=== PATIENT | female | born 1970 | race Caucasian/White ===

== ENCOUNTER → 2019-09-24 11:08 | Outpatient (CLI) | payer BC, SELFPAY ==
[2019-09-24 11:50] LABS: Adenovirus,PCR Not Detected (NotDetected); Bordetella Pertussis Not Detected (NotDetected); Chlamydophila Pneumoniae, PCR Not Detected (NotDetected); Coronavirus 229E Not Detected (NotDetected); Coronavirus NL63 Not Detected (NotDetected); Coronavirus OC43 Not Detected (NotDetected); Coronovirus HKU1,PCR Not Detected (NotDetected); Human Metapneumovirus Not Detected (NotDetected); Influenza A, PCR Not Detected (NotDetected); Influenza AH1, 2009 Not Detected (NotDetected); Influenza AH1, PCR Not Detected (NotDetected); Influenza AH3,PCR Not Detected (NotDetected); Influenza B, PCR Not Detected (NotDetected); Mycoplasma Pneumoniae, PCR Not Detected (NotDetected); Parainfluenza 1, PCR Not Detected (NotDetected); Parainfluenza 2, PCR Not Detected (NotDetected); Parainfluenza 3, PCR Not Detected (NotDetected); Parainfluenza 4, PCR Not Detected (NotDetected); Respiratory Syncytial Virus Not Detected (NotDetected); Rhinovirus/Enterovirus Not Detected (NotDetected)
[2019-09-24 11:52] LABS: Basophils # 0.1 K/mm3 (0-0.2); Basophils % 0.3 % (0.1-2.0); Eosinophils # 0.1 K/mm3 (0.0-0.4); Eosinophils % 0.4 % (0.1-12.0); Hematocrit 39.8 % (37.0-47.0); Hemoglobin 12.8 g/dL (12.2-16.2); Lymphocytes # 2.5 K/mm3 (0.7-4.5); Lymphocytes % 15.9 % (10-50); Mean Corpuscular HGB Conc 32.3 g/dL (31.8-35.4); Mean Corpuscular Hemoglobin 26.8 pg (27.0-31.2); Mean Corpuscular Volume 82.9 fl (81-99); Mean Platelet Volume 8.3 fl (7.4-10.4); Monocytes # 0.4 K/mm3 (0.1-1.0); Monocytes % 2.5 % (1.7-9.3); Neutrophils # 12.6 K/mm3 (1.8-7.8); Neutrophils % 80.9 % (37.0-80.0); Platelet Count 266 K/mm3 (142-424); Red Cell Distribution Width 19.5 % (11.5-17.5); White Blood Count 15.5 K/mm3 (4.8-10.8)
[2019-09-24 11:56] LABS: MANUAL DIFFERENTIAL MANUAL DIFFERENTIAL (MANUAL DIFF)
[2019-09-24 12:09] LABS: Eosinophils % 2 % (0-3); Lymphocytes % 19 % (10-50); Monocytes % 3 % (2-9); Neutrophils % 76 % (42-76); Platelet Estimate Normal; RBC Morphology Normal; Total Cells Counted 100
[2019-09-24 12:14] LABS: Strep Scrn Group A (Rapid) Negative (Negative)
== END ==
PROVIDERS: PCP Nurse Practitioner; Visit Provider Nurse Practitioner
DX: Z03.818 Encounter for observation for suspected exposure to other biological agents ruled out (principal)
CPT/HCPCS: 36415; 85007; 85025; 87430; 87486; 87581; 87633; 87798; U0003

== ENCOUNTER 2020-01-02 12:41 | Emergency (ER) | payer BC, SELFPAY ==
[2020-01-02 13:00] VITALS: BP 142/91; PULSE 86; RESP 20; TEMP 36.6; O2SAT 100; BMI 25.8
[2020-01-02 13:17] VITALS: BP 142/91; PULSE 86; RESP 20; TEMP 36.6; O2SAT 100
--- NOTE | 2020-01-02 13:17 | HMH.EDUTC ---
[facility] [place] Clinical Impression: Exposure to COVID-19 virus Allergic rhinitis Qualifiers: Allergic rhinitis trigger: other Allergic rhinitis seasonality: seasonal Qualified Code(s): J30.89 - Other allergic rhinitis Disposition: Home, Self-Care Condition on Discharge: Good Instructions: Preventing the Spread of Coronavirus Discharge Instructions Additional Instructions: isolate until test results are neg any new symptoms follow up with pcp if symptoms worsen return increase fluids tylenol or motrin as needed Referrals: Maria G Laurent APRN [Primary Care Provider] - Forms: Work/School Release Time of Disposition: 13:19 Medical Decision Making - Cesar Inquiry Pt receiving controlled substance: No Vital Signs: 01/02/20 13:00 Temperature 97.8 F Temperature Source Oral Pulse Rate [Right Brachial] 86 Respiratory Rate 20 Blood Pressure [Right Arm] 142/91 H Blood Pressure Mean [Right Arm] 108 Blood Pressure Source [Right Arm] Automatic Cuff Blood Pressure Position [Right Arm] Sitting 02 Sat by Pulse Oximetry 100 Oxygen Delivery Method Room Air Orders (Tests/Meds): ORDERS Category Date Time Status Covid-19 Nasal PCR Sendout Stat Lab 01/02/20 12:42 Ordered [facility] [place] - General Chief complaint: Urgent [facility] Stated complaint: covid test Time Seen by Provider: 01/02/20 13:17 Mode of Arrival: Ambulatory Source of Information: Patient Limitations: No Limitations Description of Symptoms (Recalled from Triage Doc. by RN): PATIENT REQUESTING COVID TEST D/T EXPOSURE; C/O SORE THROAT HEENT Symptoms (Recalled from RN notes): Yes Resp Symptoms (Recalled from RN notes): No Skin Symptoms (Recalled from RN notes): No MS Symptoms (Recalled from RN notes): No Functional Status (Recalled from RN notes): WNL - History of Present Illness Provider Complaint: 49 yr old female presents for covid test. pt states she hasa sore throat and headache. Pt states she thinks its allergies but want to make sure. - Related Data Home Medications Medication Instructions Recorded Confirmed abatacept (with maltose) 250 mg 1,000 mg IV Q4W 02/21/19 intravenous solution cyanocobalamin (vitamin B-12) SQ 02/21/19 1,000 mcg/mL injection solution folic acid 1 mg tablet PO 02/21/19 hydroxychloroquine 200 mg tablet 200 mg PO BID 02/21/19 levothyroxine 137 mcg tablet PO 02/21/19 methotrexate sodium 2.5 mg tablet PO 02/21/19 Previous Rx's Medication Instructions Recorded benzonatate 100 mg capsule 100 mg PO TID #14 cap 02/21/19 pseudoephedrine HCl 240 mg 240 mg PO DAILY PRN #14 tab 02/21/19 tablet,extended release 24 hr Allergies Allergy/AdvReac Type Severity Reaction Status Date / Time No Known Allergies Allergy Verified 02/21/19 10:33 - Worker's Comp Is this a Worker's Comp case?: No [facility] History - Hepatitis A Screen Drug use history?: No High risk sexual behaviors?: No History of sexually transmitted infection?: No Currently employed?: No Childcare worker?: No Do you have indoor plumbing?: Yes Do you have electricity?: Yes Attestation statement:: This patient has been screened for Hepatitis A risk factors. I have reviewed the patient's past medical history: Yes Other Medical History: Reports: Arthritis, Thyroid Disease, Other (LUPUS) Comment: Lupus Laterality Cases: Bilateral: Myringotomy (Ear Tubes) Other Surgeries: Yes: No Previous Surgery Amputation: No Fractures: No - Social History Smoking Status: Current every day smoker # Packs/Day (cigarettes): 1 #Yrs smoked (if former smoker): 20 Alcohol Intake: never Alcohol Intake Frequency:: holidays/special occasions only Substance Use Type: denies use Occupational Status: other Housing: house Household Members: none Family Hx:: No significant family history ROS Obtained: Yes Systems reviewed as appropriate & no additional complaints - Constitutional Constitutional: Reports system reviewed and no additional co
[2020-01-03 09:37] LABS: Covid-19 Nasal PCR Sendout UK Detected
--- NOTE | 2020-01-03 09:57 | PC.NURSE ---
patient notified of positive covid results
== END 2020-01-02 13:22 | disposition home or self-care (01) ==
PROVIDERS: Emergency Provider Nurse Practitioner Family; PCP Nurse Practitioner
DX: Z20.828 Contact with and (suspected) exposure to other viral communicable diseases (principal); J30.89 Other allergic rhinitis; F17.210 Nicotine dependence, cigarettes, uncomplicated; M32.9 Systemic lupus erythematosus, unspecified; Z79.899 Other long term (current) drug therapy
CPT/HCPCS: 99201; U0003

== ENCOUNTER → 2021-10-10 07:23 | Outpatient (CLI) | payer BC, SELFPAY ==
[2021-10-10 17:52] LABS: MANUAL DIFFERENTIAL MANUAL DIFFERENTIAL (MANUAL DIFF)
[2021-10-10 18:50] LABS: Alanine Aminotransferase 15 U/L (12-78); Albumin Level 3.7 g/dl (3.5-5.0); Albumin/Globulin Ratio 1.3 (1.1-1.8); Alkaline Phosphatase 127 U/L (38-126); Anion Gap 10.5 mEq/L (5-15); Aspartate Amino Transferase 23 U/L (14-36); Blood Urea Nitrogen 8 mg/dl (7-17); Calcium 9.2 mg/dl (8.4-10.2); Carbon Dioxide 24 mmol/L (22.0-30.0); Chloride 107 mmol/L (98-107); Estimated Glomerular Filt Rate 106 ml/min (>60); GFR (African American) 129 ML/MIN (>60); Globulin 2.9 g/dL (1.3-3.2); Glucose 104 mg/dl (74-100); Potassium 4.5 mmoL/L (3.5-5.1); Sodium 137 mmol/L (136-145); Total Protein,Serum 6.6 g/dl (6.3-8.2)
[2021-10-10 18:55] LABS: Basophils # 0.1 K/mm3 (0-0.2); Basophils % 1.2 % (0.1-2.0); Eosinophils # 0.2 K/mm3 (0.0-0.4); Hematocrit 41.6 % (37.0-47.0); Lymphocytes # 2.7 K/mm3 (0.7-4.5); Lymphocytes % 28.1 % (10-50); Mean Corpuscular HGB Conc 31.3 g/dL (31.8-35.4); Mean Corpuscular Hemoglobin 27.2 pg (27.0-31.2); Mean Corpuscular Volume 86.8 fl (81-99); Mean Platelet Volume 9.6 fl (7.4-10.4); Monocytes # 0.7 K/mm3 (0.1-1.0); Monocytes % 7.6 % (1.7-9.3); Neutrophils # 5.8 K/mm3 (1.8-7.8); Neutrophils % 61.2 % (37.0-80.0); Platelet Count 386 K/mm3 (142-424); Red Blood Count 4.79 M/mm3 (4.20-5.40); Red Cell Distribution Width 14.2 % (11.5-17.5); White Blood Count 9.5 K/mm3 (4.8-10.8)
[2021-10-10 19:12] LABS: Bilirubin,Total < 0.1 mg/dl (0.2-1.3)
[2021-10-10 19:19] LABS: Thyroid Stimulating Hormone 0.02 uIU/mL (0.465-4.68)
[2021-10-10 19:38] LABS: Vitamin B12 592 pg/mL (239-931)
[2021-10-10 20:15] LABS: Eosinophils % 4 % (0-3); Lymphocytes % 35 % (10-50); Monocytes % 6 % (2-9); Neutrophils % 55 % (42-76); Total Cells Counted 100
[2021-10-10 20:16] LABS: Hypochromasia 1+; Platelet Estimate Normal
== END ==
PROVIDERS: PCP Family Medicine; Visit Provider Family Medicine
DX: R53.83 Other fatigue (principal); L93.0 Discoid lupus erythematosus; D72.825 Bandemia
CPT/HCPCS: 80053; 82607; 84443; 85007; 85014; 85018; 85048; 85049; 87086; 87088; C9803; U0003; U0005

== ENCOUNTER → 2021-10-17 07:24 | Outpatient (CLI) | payer BC, SELFPAY ==
[2021-10-23 14:12] LABS: B. henselae IgG Negative titer (Neg:<1:320); B. henselae IgM Negative titer (Neg:<1:100); B. quintana IgG Negative titer (Neg:<1:320); B. quintana IgM Negative titer (Neg:<1:100)
== END ==
PROVIDERS: PCP Family Medicine; Visit Provider Family Medicine
DX: R53.83 Other fatigue (principal); E03.9 Hypothyroidism, unspecified
CPT/HCPCS: 86611

== ENCOUNTER → 2021-10-18 08:50 | Outpatient (CLI) | payer BC, SELFPAY ==
--- NOTE | 2021-10-18 08:50 | XR_ITS ---
FINAL REPORT TECHNIQUE: Bone densitometry calculations of the lumbar spine and left hip were obtained. CLINICAL HISTORY: premenopausal FINDINGS: Using L1-4, the bone mineral density of the spine is 0.991 g/cm2, corresponding to T-score of -0.5. Using the left hip, the bone mineral density of the femoral neck is 0.932 g/cm2, corresponding to a T-score of -0.1. Using the right hip, the bone mineral density of the femoral neck is 1.008 g/cm2, corresponding to a T-score of 0.5 NOTE: T-score: Standard deviation compared with peak bone mass of young adult mean. *Following the recommendations of the International Society of Bone densitometry, classification of hip BMD is based on the lower of two T-scores; total hip or femoral neck. FRAX data was not reported because all T-scores are at or above-1.0. IMPRESSION: Normal bone mineral density of the lumbar spine and hip. Reviewed, Interpreted and Dictated by Narendra Jose III, MD Transcribed by Nohemy Austin Authenticated and [facility]
== END ==
PROVIDERS: PCP Family Medicine; Visit Provider Family Medicine
DX: Z78.0 Asymptomatic menopausal state (principal); L93.0 Discoid lupus erythematosus
CPT/HCPCS: 77080

== ENCOUNTER → 2022-02-21 11:10 | Outpatient (CLI) | payer BC, SELFPAY | PROVIDERS: PCP Nurse Practitioner; Visit Provider Nurse Practitioner | DX: N30.01 Acute cystitis with hematuria (principal); B95.2 Enterococcus as the cause of diseases classified elsewhere | CPT/HCPCS: 87086; 87088; 87186 ==

== ENCOUNTER → 2022-03-05 11:10 | Outpatient (CLI) | payer BC, SELFPAY | PROVIDERS: PCP Nurse Practitioner; Visit Provider Nurse Practitioner | DX: N30.01 Acute cystitis with hematuria (principal) | CPT/HCPCS: 87086 ==

== ENCOUNTER → 2022-05-08 08:14 | Outpatient (CLI) | payer BC, SELFPAY ==
[2022-05-08 18:57] LABS: Creatinine,Urine Random 164 mg/dL (Not Estab.)
[2022-05-08 19:02] LABS: Microalbumin/Creatinine Ratio 4.7
[2022-05-08 19:20] LABS: Basophils # 0.1 K/mm3 (0-0.2); Basophils % 0.7 % (0.1-2.0); Eosinophils # 0.2 K/mm3 (0.0-0.4); Eosinophils % 1.8 % (0.1-12.0); Hematocrit 40.9 % (37.0-47.0); Lymphocytes # 1.9 K/mm3 (0.7-4.5); Mean Corpuscular HGB Conc 31.8 g/dL (31.8-35.4); Mean Corpuscular Hemoglobin 27.9 pg (27.0-31.2); Mean Corpuscular Volume 87.7 fl (81-99); Mean Platelet Volume 9.9 fl (7.4-10.4); Monocytes # 0.7 K/mm3 (0.1-1.0); Monocytes % 7.1 % (1.7-9.3); Neutrophils # 7.5 K/mm3 (1.8-7.8); Neutrophils % 72.4 % (37.0-80.0); Platelet Count 363 K/mm3 (142-424); Red Blood Count 4.66 M/mm3 (4.20-5.40); White Blood Count 10.4 K/mm3 (4.8-10.8)
[2022-05-08 19:26] LABS: Alanine Aminotransferase 17 U/L (12-78); Albumin Level 3.7 g/dl (3.5-5.0); Albumin/Globulin Ratio 1.4 (1.1-1.8); Alkaline Phosphatase 95 U/L (38-126); Anion Gap 11.8 mEq/L (5-15); Aspartate Amino Transferase 24 U/L (14-36); Bilirubin,Total 0.4 mg/dl (0.2-1.3); Blood Urea Nitrogen 15 mg/dl (7-17); Calcium 8.4 mg/dl (8.4-10.2); Carbon Dioxide 23 mmol/L (22.0-30.0); Chloride 103 mmol/L (98-107); Chol/HDL Ratio 2.6 (1-3.5); Cholesterol 161 mg/dl (140-200); Estimated Glomerular Filt Rate 106 ml/min (>60); GFR (African American) 128 ML/MIN (>60); Globulin 2.6 g/dL (1.3-3.2); Glucose 98 mg/dl (74-100); HDL Cholesterol 63 mg/dl (40-60); Potassium 4.8 mmoL/L (3.5-5.1); Sodium 133 mmol/L (136-145); Total Protein,Serum 6.3 g/dl (6.3-8.2); Triglycerides 242 mg/dl (30-150); VLDL Cholesterol 48 mg/dL (0-40)
[2022-05-08 19:37] LABS: Direct LDL Cholesterol 79.47 mg/dL (100-129)
[2022-05-08 19:43] LABS: 25-OH Vitamin D, Total 56.3 ng/mL (30-100)
[2022-05-08 20:16] LABS: Vitamin B12 521 pg/mL (239-931)
[2022-05-09 09:08] LABS: Hemoglobin A1C 5.5 % (4.0-6.0)
== END ==
PROVIDERS: PCP Nurse Practitioner; Visit Provider Nurse Practitioner
DX: I10 Essential (primary) hypertension (principal); F32.A Depression, unspecified; Z13.220 Encounter for screening for lipoid disorders; Z13.1 Encounter for screening for diabetes mellitus; Z79.899 Other long term (current) drug therapy
CPT/HCPCS: 80053; 80061; 82043; 82306; 82570; 82607; 83036; 85025

== ENCOUNTER → 2022-07-03 11:40 | Outpatient (CLI) | payer BC, SELFPAY | PROVIDERS: PCP Nurse Practitioner; Visit Provider Nurse Practitioner | DX: R30.0 Dysuria (principal); B96.29 Other Escherichia coli [E. coli] as the cause of diseases classified elsewhere | CPT/HCPCS: 87086; 87088; 87186 ==

== ENCOUNTER → 2022-11-06 23:32 | Outpatient (CLI) | payer BC, SELFPAY | PROVIDERS: PCP Nurse Practitioner; Visit Provider Nurse Practitioner | DX: R30.0 Dysuria (principal); B96.29 Other Escherichia coli [E. coli] as the cause of diseases classified elsewhere | CPT/HCPCS: 87086; 87088; 87186 ==

== ENCOUNTER 2023-09-26 15:23 | Outpatient (CLI) | payer BC, SELFPAY ==
[2023-09-26 18:45] LABS: Basophils # 0.1 K/mm3 (0-0.2); Basophils % 0.7 % (0.1-2.0); Eosinophils # 0.2 K/mm3 (0.0-0.4); Eosinophils % 1.6 % (0.1-12.0); Hematocrit 42.3 % (37.0-47.0); Hemoglobin 13.3 g/dL (12.2-16.2); Lymphocytes # 2.5 K/mm3 (0.7-4.5); Lymphocytes % 18.9 % (10-50); Mean Corpuscular HGB Conc 31.4 g/dL (31.8-35.4); Mean Corpuscular Hemoglobin 29.3 pg (27.0-31.2); Mean Corpuscular Volume 93.1 fl (81-99); Mean Platelet Volume 8.7 fl (7.4-10.4); Monocytes # 0.7 K/mm3 (0.1-1.0); Monocytes % 5.2 % (1.7-9.3); Neutrophils # 9.8 K/mm3 (1.8-7.8); Neutrophils % 73.4 % (37.0-80.0); Platelet Count 318 K/mm3 (142-424); Red Blood Count 4.55 M/mm3 (4.20-5.40); Red Cell Distribution Width 14.5 % (11.5-17.5); White Blood Count 13.3 K/mm3 (4.8-10.8)
[2023-09-26 19:32] LABS: Alanine Aminotransferase 22 U/L (12-78); Albumin Level 3.5 g/dl (3.5-5.0); Albumin/Globulin Ratio 1.2 (1.1-1.8); Alkaline Phosphatase 90 U/L (38-126); Aspartate Amino Transferase 21 U/L (14-36); Bilirubin,Total 0.3 mg/dl (0.2-1.3); Blood Urea Nitrogen 19 mg/dl (7-17); Calcium 8.9 mg/dl (8.4-10.2); Carbon Dioxide 23 mmol/L (22.0-30.0); Chloride 108 mmol/L (98-107); Estimated Glomerular Filt Rate 88 ml/min (>60); GFR (African American) 107 ML/MIN (>60); Globulin 2.9 g/dL (1.3-3.2); Glucose 111 mg/dl (74-100); Sodium 136 mmol/L (136-145); Total Protein,Serum 6.4 g/dl (6.3-8.2)
[2023-09-26 19:54] LABS: Thyroid Stimulating Hormone < 0.02 uIU/mL (0.465-4.68)
[2023-09-26 21:52] LABS: Hemoglobin A1C 5.6 % (4.0-6.0)
== END 2023-09-26 23:59 | disposition home or self-care (01) ==
LOC: LAB.DROPOF 09-28 17:41
PROVIDERS: PCP Nurse Practitioner; Visit Provider Nurse Practitioner
DX: I10 Essential (primary) hypertension (principal); Z72.0 Tobacco use
CPT/HCPCS: 80050; 80053; 83036; 84439; 84443; 85025

== ENCOUNTER 2023-09-27 15:05 | Emergency (ER) | payer BC, SELFPAY ==
--- NOTE | 2023-09-27 15:12 | ECG_ITS ---
APPROVED REPORT Exam: Resting ECG HR:127 bpm ECG Measurements Heart Rate 127 AXES OK 141 P 65 QRSd 97 QRS 67 QT 307 T 30 QTc 382 Conclusion SINUS TACHYCARDIA ABNORMAL RHYTHM ECG Isolated T wave inversion in lead III, no reciprocal changes, no STEMI Electronically signed by : ELSA RED, 09/27/2023 23:51:08
[2023-09-27 15:19] VITALS: BMI 29.0
--- NOTE | 2023-09-27 15:21 | XR_ITS ---
FINAL REPORT CLINICAL HISTORY: palpitations FINDINGS: SINGLE-VIEW CHEST The heart size is normal. The mediastinum is normal. The lungs are clear. There is no pneumothorax. IMPRESSION: No acute cardiopulmonary process. Reviewed, Interpreted and Dictated by Narendra Jose III, MD Transcribed by Nohemy Austin Authenticated and [facility]
[2023-09-27 15:23] VITALS: BP 189/104; PULSE 127; RESP 17; TEMP 36.4; O2SAT 98; BMI 29.0
[2023-09-27 15:29] VITALS: BP 146/94; RESP 13
[2023-09-27] MEDS: ASPIRIN 81MG CHEWABLE TABLET 243 MG PO (15:30)
[2023-09-27 15:34] LABS: Basophils # 0.1 K/mm3 (0-0.2); Basophils % 0.7 % (0.1-2.0); Eosinophils # 0.1 K/mm3 (0.0-0.4); Eosinophils % 1.2 % (0.1-12.0); Hematocrit 43.9 % (37.0-47.0); Hemoglobin 13.8 g/dL (12.2-16.2); Lymphocytes # 1.4 K/mm3 (0.7-4.5); Lymphocytes % 12.3 % (10-50); Mean Corpuscular HGB Conc 31.5 g/dL (31.8-35.4); Mean Corpuscular Hemoglobin 29.7 pg (27.0-31.2); Mean Corpuscular Volume 94.3 fl (81-99); Mean Platelet Volume 8.3 fl (7.4-10.4); Monocytes # 0.5 K/mm3 (0.1-1.0); Monocytes % 4.1 % (1.7-9.3); Neutrophils # 9.3 K/mm3 (1.8-7.8); Neutrophils % 81.7 % (37.0-80.0); Platelet Count 292 K/mm3 (142-424); Red Blood Count 4.66 M/mm3 (4.20-5.40); Red Cell Distribution Width 14.4 % (11.5-17.5); White Blood Count 11.4 K/mm3 (4.8-10.8)
--- NOTE | 2023-09-27 15:34 | ED_ITS ---
Discharge Plan Disposition Patient Disposition: Home, Self-Care Condition: Good Prescriptions Prescriptions: No Action omeprazole 20 mg capsule,delayed release(DR/EC) 20 mg PO norgestimate-ethinyl estradiol [Estarylla] 0.25-35 mg-mcg tablet 1 tab PO DAILY pyridoxine (vitamin B6) 50 mg tablet 50 mg PO Q OTHER DAY Patient Comments: TAKE 1 TABLET BY MOUTH EVERY OTHER DAY levothyroxine 150 mcg tablet 150 mcg PO Patient Comments: TAKE 1 TABLET BY MOUTH EVERY DAY Benlysta 120 mg recon soln 400 mg IV Q4W Rx Instructions: administer over 60 mins hydrocortisone 0.5 % cream topical omega 2-kbd-scl-fish oil [Fish Oil] 1,200 (144-216) mg capsule 1 cap PO DAILY folic acid 1 mg tablet 1 mg PO DAILY Patient Comments: TAKE 1 TABLET BY MOUTH EVERY DAY cyanocobalamin (vitamin B-12) 1,000 mcg/mL solution SQ Patient Comments: INJECT 1 ML INTO THE MUSCLE EVERY 14 DAYS. cyclobenzaprine 10 mg tablet 10 mg PO TID PRN (Reason: muscle spasm) Qty: 30 0RF Debrox 6.5 % drops 5 drp otic (ear) BID 4 Days Qty: 15 0RF duloxetine [Cymbalta] 20 mg capsule,delayed release(DR/EC) 20 mg PO BID Qty: 180 3RF losartan-hydrochlorothiazide 100-12.5 mg tablet 1 tab PO DAILY Qty: 30 2RF Referrals Follow up/Referrals: Maria G Laurent APRN [Primary Care Provider] - See instructions Activity Restrictions/Add. Instructions Additional Instructions/Restrictions: You were evaluated in the ER and are appropriate for discharge at this time. Continue taking home medications as prescribed. Follow-up with endocrinology regarding your thyroid. Also make an appointment with your primary care physician to be seen again on Saturday or Saturday to recheck your potassium and discuss potassium supplement. Increase your water intake. Return to the ER with new, worsening, or otherwise concerning symptoms. Clinical Impressions Clinical Impression: Tachycardia Print Language Print Language: Austrian Discharge ED Provider: Stacie Glez Adult HPI General Chief complaint: Arrhythmia/Palpitations Stated complaint: sent by Maria G Laurent for evelated Pulse Time Seen by Provider: 09/27/23 15:28 Mode of Arrival: Ambulatory Source of Information: Patient Limitations: No Limitations Description of Symptoms (Recalled from ER Triage Doc. by RN): pt c/o a MAR, racing heart, diaphoresis, hot flashes, MAR and weakness since yesterday. pt saw her PCP yesterday but felt worse today so came into be checked out. pt reports in 2014 she had a similar episode but her HR was 234 and she ended up having a heart ablation at [facility]. pt has a hx of thryoid disease, lupus and HTN History of Present Illness HPI narrative: 53-year-old female with a history of hypertension, lupus presents to the ER for concerns of tachycardia. Patient reports her heart rate has been elevated consistently in the 120s to 130s for the last 3 to 4 days. She noticed over the last few weeks she was not feeling well and her blood pressure had been elevated. She states she would have multiple bad days and then a random good day. She has been evaluated by her primary care doctor as recently as yesterday. Yesterday they changed her medication to losartan plus hydrochlorothiazide and increase the dose of it. Patient states she continues making normal urine, she is not having chest pain or difficulty breathing, she states she simply does not feel good. Patient reports she has been eating and drinking normally. No abdominal pain, nausea, vomiting, diarrhea. Patient denies any history of blood clot, no calf pain or redness. She states her feet have been swollen at the end of the day recently which is new for her. patient has not missed any doses of her regular medications. She denies any recent illness. patient does report mild headache for which she took ibuprofen earlier today. Patient does have a history of thyroid disease. Related Data Home Medications ?Medication ?Instructions ?Recorded ?Confirmed cyanocobalamin (vitamin B-12) SQ 02/21/19 09/26/23 1,000 mcg/mL injection solution folic acid 1 mg tablet 1 mg PO DAILY 02/21/19 09/26/23 belimumab 120 mg intravenous 400 mg IV Q4W 02/21/22 09/26/23 solution (Benlysta) levothyroxine 150 mcg tablet 150 mcg PO 02/21/22 09/26/23 norgestimate 0.25 mg-ethinyl 1 tab PO DAILY 02/21/22 09/26/23 estradiol 35 mcg tablet (Estarylla) omeprazole 20 mg capsule,delayed 20 mg PO 02/21/22 09/26/23 release pyridoxine (vitamin B6) 50 mg 50 mg PO Q OTHER DAY 02/21/22 09/26/23 tablet hydrocortisone 0.5 % topical cream g topical 05/01/22 09/26/23 omega 5-aoy-ysa-fish oil 1,200 mg 1 cap PO DAILY 05/01/22 09/26/23 (144 mg-216 mg) capsule (Fish Oil) Previous Rx's ?Medication ?Instructions ?Recorded cyclobenzaprine 10 mg tablet 10 mg PO TID PRN muscle spasm #30 01/29/23 tabs carbamide peroxide 6.5 % ear drops 5 drp otic (ear) BID 4 days #15 mL 02/15/23 (Debrox) duloxetine 20 mg capsule,delayed 20 mg PO BID #180 caps 05/21/23 release (Cymbalta) losartan 100 1 tab PO DAILY #30 tabs 09/26/23 mg-hydrochlorothiazide 12.5 mg tablet Allergies Allergy/AdvReac Type Severity Reaction Status Date / Time No Known Allergies Allergy Verified 09/27/23 15:31 [facility] Disclaimer: The information contained in this section may have been updated after the patient was seen, as this information can be updated by other users. Medical History Left-sided low back pain with left-sided sciatica Acute cystitis with hematuria Bilateral impacted cerumen Depression Personal history of smoking Primary hypertension Acquired hypothyroidism decrease levothyroxine dose. Recheck one month. Acquired hypothyroidism Lupus Acute arthritis Surgical History History of tonsillectomy Social History Smoking Status: Current every day smoker alcohol intake: never substance use type: denies use current occupational status: other Travel in the last 8 weeks: None household members: none housing: house ROS Obtained: Yes All systems reviewed & no additional complaints except as documented Positive ROS per HPI Physical Exam General General appearance: alert and in no apparent distress Head Head exam: atraumatic and normocephalic Eye Eye exam: Present PERRL and EOMI ENT ENT exam: Present mucous membranes moist Neck Neck exam: Present normal inspection and full ROM Chest Chest inspection: Present symmetric chest wall rise Respiratory Respiratory exam: Absent respiratory distress or stridor Cardiovascular Cardiovascular exam: Present normal rhythm and tachycardia Abdominal Exam Abdominal exam: Present soft; Absent distention or tenderness Extremities Exam Extremities exam: Present full ROM and other (2+ pulses in all extremities); Absent edema or calf tenderness Neurological Exam Neurological exam: Present alert, oriented X3 and CN II-XII intact; Absent motor sensory deficit Psychiatric Psychiatric exam: Present normal affect and normal mood Skin Skin exam: Present warm and dry Medical Decision Making Medical Records Medical records reviewed: Yes I reviewed the patient's medical records. Cesar Inquiry Pt receiving controlled substance: No Vital Signs: 09/27/23 15:23 09/27/23 15:29 Temperature 97.5 F L Temperature Source Oral Pulse Rate [Left] 127 H Respiratory Rate 17 13 Blood Pressure 146/94 H Blood Pressure [Right Arm] 189/104 H Blood Pressure Mean [Right Arm] 132 Blood Pressure Source [Right Arm] Automatic Cuff Blood Pressure Position [Right Arm] Sitting 02 Sat by Pulse Oximetry 98 Oxygen Delivery Method Room Air Lab Data Lab Results 09/27/23 15:17: WBC 11.4 H, RBC 4.66, Hgb 13.8, Hct 43.9, MCV 94.3, MCH 29.7, M CHC 31.5 L, RDW 14.4, Plt Count 292, MPV 8.3, Neut % (Auto) 81.7 H, Lymph % (Auto) 12.3, [place] % (Auto) 4.1, Eos % (Auto) 1.2, Baso % (Auto) 0.7, Neut # (Auto) 9.3 H, Lymph # (Auto) 1.4, [place] # (Auto) 0.5, Eos # (Auto) 0.1, Baso # (Auto) 0.1, D-Dimer < 0.25, Sodium 137, Potassium 3.3 L, Chloride 105, Carbon Dioxide 23, Anion Gap 12.3, BUN 22 H, Creatinine 0.90 D, Estimated Creat Clear 98, Estimated GFR 66, Est GFR ( Amer) 80 D, Glucose 121 H, Calcium 9.3, Total Bilirubin 0.4, AST 30 D, ALT 26, Alkaline Phosphatase 98, Troponin I < 0.01, NT-Pro-B Natriuret Pep 24.4, Total Protein 7.2, Albumin 3.9 D, Globulin 3.3 H, Albumin/Globulin Ratio 1.2, TSH 0.02 L, Free T4 1.14, Thyroxine (T4) 18.1 H 09/27/23 15:17 09/27/23 15:17 Orders (Tests/Meds): ED MEDICATIONS Discontinued Medications Generic Name Dose Route Start Last Admin Trade Name Luiza PRN Reason Stop Dose Admin Acetaminophen 1,000 mg 09/27/23 15:46 09/27/23 16:15 Acetaminophen 500mg Tab PO 09/27/23 15:47 1,000 mg ONCE ONE Administration Aspirin 243 mg 09/27/23 15:21 09/27/23 15:30 Aspirin 81mg Chewable Tablet PO 09/27/23 15:22 243 mg ONCE ONE Administration Lactated Ringer's 1,000 mls @ 999 mls/hr 09/27/23 15:53 09/27/23 16:15 Lactated Ringer's 1000 Ml Bag IV 09/27/23 16:53 999 mls/hr .Q1H1M ONE Administration Potassium Chloride 40 meq 09/27/23 16:08 09/27/23 16:15 Potassium Chloride 20meq Tab PO 09/27/23 16:09 40 meq ONCE ONE Administration ORDERS Category Date Time Status XR chest portable Stat Exams 09/27/23 15:21 Completed BNP [NT Pro Brain Natriuretic Pep.] Stat Lab 09/27/23 15:17 Completed Complete Blood Count Auto Diff Stat Lab 09/27/23 15:17 Completed Comprehensive Metabolic Panel Stat Lab 09/27/23 15:17 Completed D-Dimer Stat Lab 09/27/23 15:17 Completed Free T4 (Free Thyroxine) Stat Lab 09/27/23 15:17 Completed T4 (Thyroxine) Stat Lab 09/27/23 15:17 Completed Thyroid Stimulating Hormone Stat Lab 09/27/23 15:17 Completed Troponin I Q3H Lab 09/27/23 18:30 Ordered Troponin I Q3H Lab 09/27/23 21:30 Ordered Troponin I Stat Lab 09/27/23 15:17 Completed Medical Decision Narrative: In summary, this 53-year-old female presents to the emergency department today with tachycardia, headache, generalized malaise. On initial evaluation patient is hemodynamically stable though she is tachycardic, afebrile, no peripheral edema, no calf pain, swelling, tenderness, or redness, pulmonary exam benign, abdominal exam benign, neuroexam intact. Differential diagnosis includes but is not limited to tachycardia, electrolyte abnormality, dehydration, patient has a comorbidity of having lupus which increases risk of hypercoagulability, increasing risk of PE which was considered, D-dimer ordered, considered thyroid abnormality, pericardial effusion, pericarditis. Based on these concerns, I ordered cardiac workup, chest x-ray, BNP. ECG personally interpreted demonstrates sinus tachycardia, rate 127, normal axis, normal AR and QTc, no STEMI. No specific findings for pericarditis. Patient received IV fluids, acetaminophen, aspirin for treatment. Labs personally reviewed demonstrate mild leukocytosis improved from labs yesterday, no anemia, mild hypokalemia, patient is receiving oral potassium, mild prerenal azotemia, patient is receiving IV fluids. D-dimer negative. Reassuring against PE. Thyroid studies with low TSH as expected given patient is on thyroid supplement, thyroxine is elevated but free T4 is normal. This is nonactionable at this time. 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 XR personally interpreted demonstrates no acute intrathoracic abnormality, see radiology read for final interpretation. POCUS negative for pericardial effusion. See procedure note for details. On reassessment after IV fluids patient has had improvement of her heart rate now down in the low 110s. She is appropriate for discharge with outpatient follow-up. Patient was given instructions on symptomatic management, follow up instructions to see endocrinology and recheck her potassium with her primary care doctor, and return precautions for the emergency department. Patient indicated understanding and was discharged in stable condition. Procedures Miscellaneous Procedure Procedure Performed: Limited Cardiac Ultrasound Indication: Tachycardia Identified cardiac views: Apical four-chamber Findings: Cardiac activity present without gross wall motion abnormality, no pericardial effusion, no right heart strain Impression: -[From above] Images were saved to permanent archive The study was technically adequate CPT: 31045 This study was performed by me, and I personally interpreted all images/videos. Based on my clinical judgement, these images were adequate and did not necessitate further imaging. Critical Care Critical Care Time Critical Care Time: No
[2023-09-27 15:39] LABS: Alanine Aminotransferase 26 U/L (12-78); Albumin Level 3.9 g/dl (3.5-5.0); Albumin/Globulin Ratio 1.2 (1.1-1.8); Alkaline Phosphatase 98 U/L (38-126); Anion Gap 12.3 mEq/L (5-15); Aspartate Amino Transferase 30 U/L (14-36); Bilirubin,Total 0.4 mg/dl (0.2-1.3); Blood Urea Nitrogen 22 mg/dl (7-17); Calcium 9.3 mg/dl (8.4-10.2); Carbon Dioxide 23 mmol/L (22.0-30.0); Chloride 105 mmol/L (98-107); Creatinine Clearance Estimated 98 mL/min (50-200); Estimated Glomerular Filt Rate 66 ml/min (>60); GFR (African American) 80 ML/MIN (>60); Globulin 3.3 g/dL (1.3-3.2); Glucose 121 mg/dl (74-100); Potassium 3.3 mmoL/L (3.5-5.1); Sodium 137 mmol/L (136-145); Total Protein,Serum 7.2 g/dl (6.3-8.2)
[2023-09-27 15:43] LABS: D-Dimer < 0.25 ug/mL (0.0-0.5)
[2023-09-27 15:55] LABS: NT Pro Brain Natriuretic Pep. 24.4 pg/mL (0-125)
[2023-09-27 15:57] LABS: T4 (Thyroxine) 18.1 ug/dl (5.53-11.0)
[2023-09-27 16:10] LABS: Troponin I < 0.01 ng/ml (0.00-0.034)
[2023-09-27 16:11] LABS: Thyroid Stimulating Hormone 0.02 uIU/mL (0.465-4.68)
[2023-09-27] MEDS: POTASSIUM CHLORIDE 20MEQ TAB 40 MEQ PO (16:15)
[2023-09-27] MEDS: LACTATED RINGERS 1000ML 1,000 ML 999 ML IV (16:15)
[2023-09-27] MEDS: ACETAMINOPHEN 500MG TAB 1000 MG PO (16:15)
[2023-09-27 16:51] LABS: Free T4 (Free Thyroxine) 1.14 ng/dl (0.78-2.19)
[2023-09-27 17:18] VITALS: BP 143/101; PULSE 113; RESP 16; TEMP 36.4; O2SAT 97
== END 2023-09-27 17:20 | disposition home or self-care (01) ==
PROVIDERS: Emergency Provider Emergency Medicine; PCP Nurse Practitioner
DX: R00.0 Tachycardia, unspecified (principal); E87.6 Hypokalemia; I10 Essential (primary) hypertension; M32.9 Systemic lupus erythematosus, unspecified; E03.9 Hypothyroidism, unspecified; F17.210 Nicotine dependence, cigarettes, uncomplicated
CPT/HCPCS: 71045; 80050; 80053; 83880; 84436; 84439; 84443; 84484; 85025; 85378; 93005; 96360; 99285; J7120

== ENCOUNTER 2023-10-03 11:13 | Outpatient (CLI) | payer BC, SELFPAY ==
[2023-10-03 20:03] LABS: Basophils # 0.1 K/mm3 (0-0.2); Basophils % 0.5 % (0.1-2.0); Eosinophils # 0.3 K/mm3 (0.0-0.4); Eosinophils % 2.9 % (0.1-12.0); Hematocrit 41.3 % (37.0-47.0); Lymphocytes # 2.3 K/mm3 (0.7-4.5); Lymphocytes % 21.9 % (10-50); Mean Corpuscular HGB Conc 31.4 g/dL (31.8-35.4); Mean Corpuscular Hemoglobin 29.8 pg (27.0-31.2); Mean Corpuscular Volume 94.8 fl (81-99); Mean Platelet Volume 9.5 fl (7.4-10.4); Monocytes # 0.8 K/mm3 (0.1-1.0); Monocytes % 7.3 % (1.7-9.3); Neutrophils # 6.9 K/mm3 (1.8-7.8); Neutrophils % 67.4 % (37.0-80.0); Platelet Count 393 K/mm3 (142-424); Red Blood Count 4.36 M/mm3 (4.20-5.40); Red Cell Distribution Width 14.2 % (11.5-17.5); White Blood Count 10.3 K/mm3 (4.8-10.8)
[2023-10-03 20:17] LABS: Alanine Aminotransferase 21 U/L (12-78); Albumin Level 3.5 g/dl (3.5-5.0); Albumin/Globulin Ratio 1.3 (1.1-1.8); Alkaline Phosphatase 90 U/L (38-126); Anion Gap 9.8 mEq/L (5-15); Aspartate Amino Transferase 22 U/L (14-36); Bilirubin,Total 0.3 mg/dl (0.2-1.3); Blood Urea Nitrogen 14 mg/dl (7-17); Carbon Dioxide 22 mmol/L (22.0-30.0); Chloride 109 mmol/L (98-107); Estimated Glomerular Filt Rate 105 ml/min (>60); GFR (African American) 128 ML/MIN (>60); Globulin 2.8 g/dL (1.3-3.2); Glucose 93 mg/dl (74-100); Potassium 4.8 mmoL/L (3.5-5.1); Sodium 136 mmol/L (136-145); Total Protein,Serum 6.3 g/dl (6.3-8.2)
== END 2023-10-03 23:59 | disposition home or self-care (01) ==
LOC: LAB.DROPOF 10-04 11:13
PROVIDERS: PCP Nurse Practitioner; Visit Provider Nurse Practitioner
DX: I10 Essential (primary) hypertension (principal); E87.6 Hypokalemia; D72.829 Elevated white blood cell count, unspecified; R00.0 Tachycardia, unspecified; Z72.0 Tobacco use
CPT/HCPCS: 80053; 85025

== ENCOUNTER 2023-10-21 11:56 | Outpatient (CLI) | payer BC, SELFPAY ==
[2023-10-21 19:53] LABS: Basophils # 0.1 K/mm3 (0-0.2); Basophils % 0.5 % (0.1-2.0); Eosinophils # 0.1 K/mm3 (0.0-0.4); Eosinophils % 1.1 % (0.1-12.0); Hemoglobin 12.6 g/dL (12.2-16.2); Lymphocytes # 2.7 K/mm3 (0.7-4.5); Lymphocytes % 22.7 % (10-50); Mean Corpuscular HGB Conc 31.6 g/dL (31.8-35.4); Mean Corpuscular Hemoglobin 29.6 pg (27.0-31.2); Mean Corpuscular Volume 93.6 fl (81-99); Mean Platelet Volume 9.1 fl (7.4-10.4); Monocytes # 0.6 K/mm3 (0.1-1.0); Monocytes % 5.5 % (1.7-9.3); Neutrophils # 8.2 K/mm3 (1.8-7.8); Neutrophils % 70.3 % (37.0-80.0); Platelet Count 416 K/mm3 (142-424); Red Blood Count 4.28 M/mm3 (4.20-5.40); Red Cell Distribution Width 14.7 % (11.5-17.5); White Blood Count 11.7 K/mm3 (4.8-10.8)
[2023-10-21 20:30] LABS: Alanine Aminotransferase 24 U/L (12-78); Albumin Level 3.6 g/dl (3.5-5.0); Albumin/Globulin Ratio 1.2 (1.1-1.8); Alkaline Phosphatase 89 U/L (38-126); Anion Gap 10.7 mEq/L (5-15); Aspartate Amino Transferase 30 U/L (14-36); Bilirubin,Total 0.3 mg/dl (0.2-1.3); Blood Urea Nitrogen 14 mg/dl (7-17); Calcium 8.9 mg/dl (8.4-10.2); Carbon Dioxide 23 mmol/L (22.0-30.0); Chloride 105 mmol/L (98-107); Estimated Glomerular Filt Rate 105 ml/min (>60); GFR (African American) 128 ML/MIN (>60); Glucose 83 mg/dl (74-100); Potassium 4.7 mmoL/L (3.5-5.1); Sodium 134 mmol/L (136-145); Total Protein,Serum 6.6 g/dl (6.3-8.2)
== END 2023-10-21 23:59 | disposition home or self-care (01) ==
LOC: LAB.DROPOF 10-22 11:56
PROVIDERS: PCP Nurse Practitioner; Visit Provider Nurse Practitioner
DX: E87.6 Hypokalemia (principal); I10 Essential (primary) hypertension; F17.200 Nicotine dependence, unspecified, uncomplicated
CPT/HCPCS: 80053; 85025

== ENCOUNTER 2024-04-27 15:11 | Outpatient (CLI) | payer BC, SELFPAY | END 2024-04-27 23:59 | disposition home or self-care (01) | LOC: LAB.DROPOF 04-29 07:53 | PROVIDERS: PCP Nurse Practitioner; Visit Provider Nurse Practitioner | DX: N30.01 Acute cystitis with hematuria (principal) | CPT/HCPCS: 87086 ==

== ENCOUNTER 2024-06-15 12:40 | Outpatient (CLI) | payer BC, SELFPAY ==
--- NOTE | 2024-06-15 12:49 | XR_ITS ---
FINAL REPORT CLINICAL HISTORY: LLQ pain, left flank pain FINDINGS: A single supine view of the abdomen was obtained. There is no prior for comparison. There is a large amount of retained stool. The kidneys are obscured by stool. Pelvic calcifications could be phleboliths, but distal ureteral stones not excluded. Osseous structures are within normal limits. IMPRESSION: Large stool burden. Pelvic calcifications as described. Reviewed, Interpreted and Dictated by Montserrat Ivan MD Transcribed by Leah Bonner Authenticated and [facility][1]
== END 2024-06-15 23:59 | disposition home or self-care (01) ==
LOC: RAD 12:41
PROVIDERS: PCP Nurse Practitioner; Visit Provider Nurse Practitioner
DX: R10.32 Left lower quadrant pain (principal); R10.9 Unspecified abdominal pain
CPT/HCPCS: 74018; 87086

== ENCOUNTER 2024-07-01 07:19 | Outpatient (CLI) | payer BC, SELFPAY ==
[2024-07-01 07:40] LABS: Blood Urea Nitrogen 11 mg/dl (7-17); Estimated Glomerular Filt Rate 105 ml/min (>60); GFR (African American) 127 ML/MIN (>60)
== END 2024-07-01 23:59 | disposition home or self-care (01) ==
LOC: LAB 07:20
PROVIDERS: PCP Nurse Practitioner; Visit Provider Nurse Practitioner
DX: R10.32 Left lower quadrant pain (principal)
CPT/HCPCS: 36415; 82565; 84520

== ENCOUNTER 2024-07-02 08:03 | Outpatient (CLI) | payer BC, SELFPAY ==
--- NOTE | 2024-07-02 08:30 | CT_ITS ---
FINAL REPORT TECHNIQUE: Oral and IV contrast enhanced exam This study was performed with techniques to keep radiation doses as low as reasonably achievable, (ALARA). Individualized dose reduction techniques using automated exposure control or adjustment of mA and/or kV according to the patient's size were employed. CLINICAL HISTORY: LLQ pain, left flank pain, worse in back oral and iv contrast COMPARISON: None FINDINGS: CT ABDOMEN PELVIS WITH CONTRAST: Abdomen: Lung bases are clear. The gallbladder is unremarkable. Liver has an unremarkable CT appearance. The spleen, pancreas and adrenal glands are unremarkable. Kidneys show no mass or obstruction. No bowel obstruction or fluid collection is seen. Pelvis: The appendix is normal in appearance. There are small uterine fibroids, the largest of which measures 16 mm in size. Pelvic bowel loops are unremarkable. No fluid collection or adenopathy is seen. Mild fecal impaction is noted throughout the colon. IMPRESSION: Mild fecal impaction, without evidence of acute intra-abdominal abnormality. Reviewed, Interpreted and Dictated by Merna Orozco MD Transcribed by Aurea Peoples Authenticated and [facility]
[2024-07-02] MEDS: SODIUM CHLORIDE 0.9% 10ML SYR (RAD ONLY) 10 ML IV (08:57)
[2024-07-02] MEDS: IOPAMIDOL-370 (76%);100ML BOTTLE 75 ML IV (08:58)
[2024-07-02] MEDS: BARIUM SULFATE(READI-CAT2);450ML BOTTLE 450 ML PO (08:58)
== END 2024-07-02 23:59 | disposition home or self-care (01) ==
LOC: RAD 08:04
PROVIDERS: PCP Nurse Practitioner; Visit Provider Nurse Practitioner
DX: K56.41 Fecal impaction (principal)
CPT/HCPCS: 74177; Q9967

== ENCOUNTER 2024-07-22 09:13 | Outpatient (CLI) | payer BC, SELFPAY ==
--- OUTSIDE RECORDS SUMMARY | 2024-07-02 15:30 | XMS_ITS | Encounter Summary ---
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 Procedures [place] INJ ANIFROLUMAB-FNIA 1MG Selena Gray MD [address] [place] [address] Phone: tel: fax: [facility] [address] [place] [address] Referral ID Status Reason Start Date Expiration Date V isits Requested Visits Authorized [id number] Authorized 10/02/2023 99 99 Encounter Details Date Type Department Care Team (Latest Contact Info) Description 07/02/2024 3:30 PM EDT Office Visit [facility] [place] [address] [place] [phone] Encounter for long-term (current) use of high-risk [...] Care Team (Late st Contact Info) Description 08/04/2024 3:45 PM EDT [facility] [address] [place] [address] 10/22/2024 3:30 PM EDT [facility] [address] [place] [address] Selena Gray MD [address] [place] [address] 11/25/2024 9:00 AM EDT Office Visit [facility] [address] [address] Lyle Salgado MD [address] [place] [address] documented as of this encounter Goals Goal Patient Goal Type Associated Problems Recent Progress Patient-Stated? Author Blood Pressure < 140/90 Blood Pressure 120/72(2024 3:57 PM EDT) No Marybel Singh, RMKelly Maintain a healthy diet, exercise regularly and maintain an ideal body weight General No Christina Newton, BRYCE Stay Tobacco Free Lifestyle No Christina Newton APRN documented as of this encounter Visit [...] /hr documented in this encounter Care Teams Magento Developer Relationship Specialty Start Date End Date Maria G Laurent APRN [address] [facility] [address] [place] [address] PCP - General Nurse Practitioner 08/20/19 Jonah Eng MD [address] [place] [address] Physician Psychiatry & Neurology-Clinical Neurophysiology 09/16/13 Jaren Duran MD [address] [place] [address] Internal Medicine-Cardiovascular Disease 04/22/14 Selena Gray MD [address] [place] [address] Internal Medicine-Rheumatology 04/30/22 documented as of this encounter
--- OUTSIDE RECORDS SUMMARY | 2024-07-16 16:00 | XMS_ITS | Encounter Summary ---
Author Organization [facility] Address [address] [place] [address] Care Team Providers Care Sheet Folder Name Role Phone Jonah Eng MD Unavailable Jaren Duran MD Unavailable Unavailable MariaG Laurent APRN Primary Care Provider [phone] Selena Gray MD Unavailable Reason for Visit * Reason Comments Lupus Encounter Details Date Type Department Care Team (Latest Contact Info) Description 07/16/2024 4:00 PM EDT Office Visit [facility] [address] [place] [address] Selena Gray MD [address] [place] [address] Systemic lupus erythematosus, unspecified SLE [...] Description 08/04/2024 3:45 PM EDT Office Visit [facility] [address] [place] [address] 10/22/2024 3:30 PM EDT Office Visit [facility] [address] [place] [address] Selena Gray MD [address] [place] [address] 11/25/2024 9:00 AM EDT Office Visit [facility] [address] [id number] Lyle Salgado MD [facility] [place] [address] Pending Results Name Type Priority Associated Diagnoses Date /Time VITAMIN D 25 HYDROXY-QUEST Lab Routine Encounter for long-term (current) use of high-risk medication Vitamin D deficiency 07/22/2024 8:05 AM EDT C REACTIVE PROTEIN-QUEST Lab Routine Encounter for long-term (current) use of high-risk medication 07/22/2024 8:05 AM EDT DNA (DS) ANTIBODY-QUEST Lab Routine Encounter for long-term (current) use of high-risk medication 07/22/2024 8:05 AM EDT COMPLEMENT COMPONENT [id number] Lab Routine 07/22/2024 8:05 AM EDT COMPLEMENT COMPONENT [id number] Lab Routine 07/22/2024 8:05 AM EDT QUANTIFERON(R)-TB GOLD PLUS, 1-QUEST Lab Routine 07/22/2024 8:05 AM EDT URINE CULTURE-QUEST Lab Routine 07/22 8:05 AM EDT Scheduled Orders Name Type Priority Associated Diagnoses [...] Pressure 120/72(2024 3:57 PM EDT) No Marybel Singh RMA Maintain a healthy diet, exercise regularly and maintain an ideal body weight General No Christina Newton APRN Stay Tobacco Free Lifestyle No Christina Newton APRN documented as of this encounter Procedures Procedure Name Priority Date/Time Associated Diagnosis Comments REFLEXIVE URINE CULTURE Routine 07/22/2024 8:05 AM EDT URINALYSIS, COMPLETE WITH REFLEX TO CULTURE-QUEST Routine 07/22/2024 8:05 AM EDT Encounter for long-term (current) use of high-risk medication SEDIMENTATION RATE AUTOMATED-QUEST Routine 07/22/2024 8:05 AM EDT Encounter for long-term (current) use of high-risk medication COMPREHENSIVE METABOLIC PANEL-QUEST Routine 07/22/2024 8:05 AM EDT Encounter for long-term (current) use of high-risk medication CBC WITH AUTO DIFF-QUEST Routine 07/22/2024 8:05 AM EDT Encounter for long-term (current) use of high-risk medication documented in this encounter Results * REFLEXIVE URINE CULTURE (07/22/2024 8:05 AM EDT) REFLEXIVE URINE CULTURE [facility] Comment:CULTURE INDICATED - RESULTS TO FOLLOW 07/22/2024 8:05 AM EDT 07/22/2024 8:05 AM EDT us Selena Gray MD QUEST-URINE ORDERABLES Final Res ult QUEST [facility] [address] [place] [address] * (ABNORMAL) URINALYSIS, COMPLETE WITH REFLEX TO [...] 07/22/2024 8:05 AM EDT Selena Gray MD QUEST-MICROBIOLOGY ORDERABLES Fi nal Result Performing Organization Address City/[facility]/ZIP Co de Phone Number [facility] [address] [place] [address] * SEDIMENTATION RATE AUTOMATED-QUEST (07/22/2024 8:05 AM EDT) Sed Rate 17 < OR = 30 mm[facility]h [facility] 07/22/2024 8:05 AM EDT 07/22/2024 8:05 AM EDT Selena Gray MD QUEST-HEMATOLOGY ORDERABLES Yuly l Result Performing Organization Address [facility] Co de Phone Number [facility] [address] [place] [address] * COMPREHENSIVE METABOLIC PANEL-QUEST (07/22/2024 8:05 AM EDT) Glucose 87 65 - 99 mg/dL [facility] Comment: Fasting reference interval BUN 10 7 - 25 mg/dL [facility] Creatinine 0.57 0.50 - 1.03 mg/dL [facility] EGFR 109 > OR = 60 mL/min/1.7 3m2 [facility] BUN/Creatinine Ratio SEE NOTE: 6 - 22 (calc) [facility] Comment: Not Reported: [...] MD QUEST-CHEMISTRY ORDERABLES Final Result QUEST [facility] [address] [place] [address] * CBC WITH AUTO DIFF-QUEST (07/22/2024 8:05 AM EDT) WBC 9.8 3.8 - 10.8 Thousand/u L [...] EDT Selena Gray MD QUEST-HEMATOLOGY ORDERABLES Yuly alarcon Result Performing Organization Address City/State/[facility] Co de Phone Number QUEST [facility] [address] [place] [address] documented in this encounter Visit Diagnoses Diagnosis [...] 07/16/2024 documented in this encounter Care Teams Sheet Folder Relationship Specialty Start Date End Date Maria G Laurent APRN [address] [facility] [address] [place] [address] PCP - General Nurse Practitioner 08/20/19 Jonah Eng MD [address] [place] [address] Physician Psychiatry & Neurology-Clinical Neurophysiology 09/16/13 Jaren Duran MD [address] [facility] [address] [place] [address] Internal Medicine-Cardiovascular Disease 04/22/14 [place] [address] [place] [address] Internal Medicine-Rheumatology 04/30/22 documented as of this encounter
[2024-07-22 18:38] LABS: Basophils # 0.1 K/mm3 (0-0.2); Basophils % 0.8 % (0.1-2.0); Eosinophils # 0.2 Kmm3 (0.0-0.4); Hematocrit 37.5 % (37.0-47.0); Immature Granulocytes # 0.03 10^3uL; Immature Granulocytes % 0.3 %; Lymphocytes % 20.7 % (10-50); Mean Corpuscular Hemoglobin 28.7 pg (27.0-31.2); Mean Corpuscular Volume 89.7 fl (81-99); Mean Platelet Volume 10.4 fl (7.4-10.4); Monocytes # 0.6 K/mm3 (0.1-1.0); Monocytes % 6.1 % (1.7-9.3); Neutrophils # 6.8 K/mm3 (1.8-7.8); Neutrophils % 70.1 % (37.0-80.0); Nucleated Red Blood Cells # 0 10^3/uL; Nucleated Red Blood Cells % 0 %; Platelet Count 348 K/mm3 (142-424); Red Blood Count 4.18 M/mm3 (4.20-5.40); Red Cell Distribution Width-SD 45.5 fL; White Blood Count 9.7 K/mm3 (4.8-10.8)
[2024-07-22 18:46] LABS: Alanine Aminotransferase 13 U/L (12-78); Albumin Level 3.6 g/dl (3.5-5.0); Albumin/Globulin Ratio 1.3 (1.1-1.8); Alkaline Phosphatase 71 U/L (38-126); Anion Gap 8.6 mEq/L (5-15); Aspartate Amino Transferase 20 U/L (14-36); Bilirubin,Total 0.3 mg/dl (0.2-1.3); Blood Urea Nitrogen 10 mg/dl (7-17); Calcium 9.7 mg/dl (8.4-10.2); Carbon Dioxide 24 mmol/L (22.0-30.0); Chloride 104 mmol/L (98-107); Chol/HDL Ratio 2.3 (1-3.5); Cholesterol 184 mg/dl (140-200); Estimated Glomerular Filt Rate 105 ml/min (>60); GFR (African American) 127 ML/MIN (>60); Globulin 2.8 g/dL (1.3-3.2); Glucose 99 mg/dl (74-100); HDL Cholesterol 80 mg/dl (40-60); Potassium 4.6 mmoL/L (3.5-5.1); Sodium 132 mmol/L (136-145); Total Protein,Serum 6.4 g/dl (6.3-8.2); Triglycerides 172 mg/dl (30-150); VLDL Cholesterol 34 mg/dL (0-40)
[2024-07-22 18:58] LABS: Direct LDL Cholesterol 78.32 mg/dL (100-129)
[2024-07-22 19:03] LABS: 25-OH Vitamin D, Total 68.2 ng/mL (30-100)
[2024-07-22 19:04] LABS: Free T4 (Free Thyroxine) 0.85 ng/dl (0.78-2.19)
[2024-07-22 19:11] LABS: Creatinine,Urine Random 51 mg/dL (Not Estab.); Microalbumin < 6.000 mg/L (0-16.7)
[2024-07-22 19:18] LABS: Thyroid Stimulating Hormone 2.41 uIU/mL (0.465-4.68)
[2024-07-22 19:37] LABS: Vitamin B12 414 pg/mL (239-931)
[2024-07-22 20:04] LABS: Hemoglobin A1C 5.6 % (4.0-6.0)
[2024-07-22 20:51] LABS: Hepatitis C Ab Qual. W/ RFX NEGATIVE (Negative)
[2024-07-23 04:35] LABS: HIV Combo NEGATIVE (Negative)
--- OUTSIDE RECORDS SUMMARY | 2024-07-23 09:20 | XMS_ITS | Encounter Summary ---
Author Organization [place] [address] Care Team Providers Care Multiple Cut Off Saw Operator Name Role Phone Jonah Eng MD Unavailable Jaren Duran MD Unavailable Unavailable Shawn Ramirez MD Primary Care Provider [phone] Maria G Laurent APRN Primary Care Provider [phone] Selena Gray MD Unavailable Encounter Details Date Type Department Care Team (Late st Contact Info) Description 12/20/2016 E-Visit [facility] [place] [facility] [address] [place] [address] Shawn Ramirez MD [address] [place] [address] E-Visit Submission: Urinary Problems Social History Tobacco Use Types Packs/Day Years Used Date Smoking Tobacco: Every Day Cigarettes 0.5 20 Started: 01/11/1989; Last attempted to quit: 01/11/2009 Smokeless Tobacco: Never Comments:Occasional smoker. 5-6 cigerattes in a day. Alcohol Use Standard Drinks/Week Comments Yes 0 [...] on file documented as of this encounter Plan of Treatment Upcoming Encounters Date Type Department Care Team (Late st Contact Info) Description 08/04/2024 3:45 PM EDT Office Visit [facility] [address] [place] [address] 10/22/2024 3:30 PM EDT Office [facility] [address] [place] [address] Selena Gray MD [address] [place] [address] 11/25/2024 9:00 AM EDT Office Visit [facility] [address] [address] Lyle Salgado MD [address] [place], [place] [id number] documented as of this encounter Goals Goal Patient Goal Type Associated Problems Recent Progress Patient-Stated? Author Blood Pressure < 140/90 Blood Pressure 120/72(2024 3:57 PM EDT) No Marybel Singh, RMA Maintain a healthy diet, exercise regularly and maintain an ideal body weight General No Christina Newton APRN Stay Tobacco Free Lifestyle No Christina Newton APRN documented as of this encounter Visit Diagnoses Not on filedocumented in this encounter Care Teams Multiple Cut Off Saw Operator Relationship Specialty Start Date End Date Shawn Ramirez MD [address] [place] [address] PCP - General Family Medicine 05/11/14 07/07/18 Maria G Laurent APRN [address] [facility] [address] [place] [address] PCP - General Nurse Practitioner 08/20/19 Jonah Eng MD [address] [place] [address] Physician Psychiatry & Neurology-Clinical Neurophysiology 09/16/13 Jaren Duran MD [address] [place] [address] Internal Medicine-Cardiovascular Disease 04/22/14 Selena Gray MD [address] [place] [address] Internal Medicine-Rheumatology 04/30/22 documented as of this encounter
--- OUTSIDE RECORDS SUMMARY | 2024-07-23 09:20 | XMS_ITS | Encounter Summary ---
Author Organization [place] [address] Care Team Providers Care Repair Armature Winder Helper Name Role Phone Jonah Eng MD Unavailable Jaren Duran MD Unavailable Unavailable Maria G Laurent APRN Primary Care Provider [phone] Selena Gray MD Unavailable Reason for Visit * Reason Onset Date Comments Medication Refill 07/15/2024 Encounter Details Date Type Department Care Team (Late st Contact Info) Description 07/15/2024 Refill [facility] Physicians [facility] [place] [address] [address] Tayla Lam MD [address] [address] Medication Refill Social History Tobacco Use Types Packs/Day Years [...] on file documented as of this encounter Ordered Prescriptions Prescription Sig Dispense Quantity Refills Last Filled Start Date End Date cyanocobalamin 1,000 mcg/mL Inj SolutionIndications :B12 deficiency Inject 1 mL into the muscle every 14 days. 6 mL 1 07/15/2024 documented in this encounter Plan of Treatment Upcoming Encounters Date Type Department Care Team (Late st Contact Info) Description 08/04/2024 3:45 PM EDT Office Visit [facility] [address] [place] [address] 10/22/2024 3:30 PM EDT Office [facility] [address] [place] [address] Selena Gray MD [address] [place] [address] 11/25/2024 9:00 AM EDT Office Visit [facility] [address] [address] Lyle Salgado MD [address] [place] [address] documented as of this encounter Goals Goal Patient Goal Type Associated Problems Recent Progress Patient-Stated? Author Blood Pressure < 140/90 Blood Pressure 120/72(2024 3:57 PM EDT) Marybel Rowan, RMA Maintain a healthy diet, exercise regularly and maintain an ideal body weight General No Christina Newton APRN Stay Tobacco Free Lifestyle Christina Stevenson APRN documented as of this encounter Visit Diagnoses Diagnosis B12 deficiency Other B-complex deficiencies documented in this encounter Discontinued Medications Medication Sig Discontinue Reason Start Date End Da te cyanocobalamin 1,000 mcg/mL Inj SolutionIndications: B12 deficiency INJECT 1 ML INTRAMUSCULARLY EVERY 14 DAYS Reorder 04/24/2024 07/15/2024 documented as of this encounter Care Teams Repair Armature Winder Helper Relationship Specialty Start Date End Date Maria G Laurent APRN [address] [facility] [address] [place] [address] PCP - General Nurse Practitioner 08/20/19 Jonah Eng MD [address] [place] [address] Physician Psychiatry & Neurology-Clinical Neurophysiology 09/16/13 Jaren Duran MD [address] [place] [address] Internal Medicine-Cardiovascular Disease 04/22/14 Selena Gray MD [address] [place] [address] Internal Medicine-Rheumatology 04/30/22 documented as of this encounter
--- OUTSIDE RECORDS SUMMARY | 2024-07-23 09:20 | XMS_ITS | Encounter Summary ---
Author Organization [facility] Address [address] [place] [address] Care Team Providers Care Loss Prevention Specialist Name Role Phone Jonah Eng MD Unavailable Jaren Duran MD Unavailable Unavailable Maria G Laurent APRN Primary Care Provider [phone] Selena Gray MD Unavailable Reason for Visit * Reason Comments Medication Refill Encounter Details Date Type Department Care Team (Late st Contact Info) Description 06/07/2024 Refill [facility] [address] [place] [address] Selena Gray MD [address] [place] [address] Medication Refill Social History Tobacco Use Types [...] Refills Last Filled Start Date End Date omeprazole (PRILOSEC) 20 mg Oral Capsule, Delayed Release(E.C.) TAKE 1 CAPSULE BY MOUTH EVERY DAY 90 Capsule 06/08/2024 documented in this encounter Miscellaneous Notes * Telephone Encounter - Ginger Lewis MA - 06/08/2024 2:00 PM EDT LCV: 04/14/24 NCV: 07/16/24 Last Sent: 03/10/24 90 capsules with 0 refills Medication sent to [facility] in [place], [place] documented in this encounter Plan of Treatment Upcoming Encounters Date Type Department Care Team (Late st Contact Info) Description 08/04/2024 3:45 PM EDT Office Visit [facility] [address] [place] [address] 10/22/2024 3:30 PM EDT Office Visit [facility] [address] [place] [address] Selena Gray MD [address] [place] [address] 11/25/2024 9:00 AM EDT Office Visit [facility] [address] [id number] Lyle Salgado MD [address] [place] [address] documented as of this encounter Goals Goal [...] Diagnoses Not on filedocumented in this encounter Discontinued Medications Medication Sig Discontinue Reason Start Date End Da te omeprazole (PRILOSEC) 20 mg Oral Capsule, Delayed Release(E.C.) TAKE 1 CAPSULE BY MOUTH EVERY DAY 03/10/2024 06/08/2024 documented as of this encounter Care Teams Loss Prevention Specialist Relationship Specialty Start Date End Date Maria G Laurent APRN [address] [facility] [address] [place] [address] PCP - General Nurse Practitioner 08/20/19 Jonah Eng MD [address] [place] [address] Physician Psychiatry & Neurology-Clinical Neurophysiology 09/16/13 Jaren Duran MD [address] [address] Internal Medicine-Cardiovascular Disease 04/22/14 Selena Gray MD [address] [place] [address] Internal Medicine-Rheumatology 04/30/22 documented as of this encounter
--- OUTSIDE RECORDS SUMMARY | 2024-07-23 09:20 | XMS_ITS | Clinical Summary ---
Author Organization [facility] Address [address] [place] [address] Phone Care Team Providers Care Drupal Web Developer Name Role Phone Jonah Eng MD Unavailable Jaren Duran MD Unavailable Unavailable Maria G Laurent APRN Primary Care Provider [phone] Selena Gray MD Unavailable Allergies Active Allergy Reactions Criticality Noted Date Comments Almotriptan Malate Nausea And Vomiting, Other (See Comments) High 12/27/2009 Unknown Certolizumab Pegol Hives 01/24/2023 Medications FLUoxetine 60 mg Oral Tablet Take 0.5 Tabs by mouth daily. Active ibuprofen (ADVIL;MOTRIN) 200 mg Oral TabletIndications :Contusion of right chest wall, initial encounter Take 2 Tabs by mouth 3 times daily as needed for Pain. 30 Tab 2 017 Active ferrous sulfate 325 mg (65 mg iron) Oral Tablet Take 1 Tab by mouth 3 times daily. 90 Tab 5 020 Active Cholecalciferol, Vitamin D3, (VITAMIN D3) 125 mcg (5,000 unit) Oral TabletIndications :Vitamin D deficiency Take 5,000 Units by mouth every other day. 021 Active Syringe with Needle, Disp, (BD LUER-KERVIN SYRINGE) 3 mL 25 gauge x 1 Misc SyringeIndication s:B12 deficiency USE EVERY 2 WEEKS WITH B12 INJECTION. 6 Each 3 023 Active pyridoxine, vitamin B6, (B-6) 50 mg Oral TabletIndications :B12 deficiency,Second joshua hypothyroidism,Vi tamin B6 deficiency,Pituit joshua hypofunction,Low iron,Other iron deficiency anemia TAKE 1 TABLET BY MOUTH EVERY OTHER DAY 45 Tablet 7 023 Active hydrocortisone 0.5 % Top Cream APPLY DAILY TO RASH NEEDED 28.4 g 023 Active DULoxetine (CYMBALTA) 20 mg Oral Capsule, Delayed Release(E.C.) Take 20 mg by mouth 2 times daily. 023 Active ESTARYLLA 0.25-35 mg-mcg Oral Tablet Take 1 Tablet by mouth daily. 023 Active albuterol (PROVENTIL HFA;VENTOLIN HFA) 90 mcg/actuation Inhl HFA Aerosol InhalerIndication s:Acute viral bronchitis Inhale 2 Puffs into the lungs every 4 hours as needed. 1 Each 024 Active leucovorin (WELLCOVORIN) 5 mg Oral Tablet Take 8-12 hours after you methotrexate 5 Tablet 3 024 Active losartan-hydrochl orothiazide (HYZAAR) 100-12.5 mg Oral Tablet Take 1 Tablet by mouth daily. 024 Active nebivoloL (BYSTOLIC) 10 mg Oral Tablet Take 10 mg by mouth daily. 024 Active KLOR-CON M20 20 mEq Oral Tab Sust.Rel. Particle/Crystal Take 20 mEq by mouth 2 times daily. 024 Active anifrolumab-fnia (SAPHNELO IV) Inject into the vein every 28 days. Active methotrexate sodium, PF, 25 mg/mL Inj SolutionIndicatio ns:Systemic lupus erythematosus, unspecified SLE type, unspecified organ involvement status (HCC),Encounter for long-term (current) use of high-risk medication Subcutaneous (Inject under the skin) 1 mL once a week. 8 mL 025 Active Insulin Syringe-Needle U-100 (BD INSULIN SYRINGE) 1 mL 27 gauge x 1/2 Misc SyringeIndication s:Systemic lupus erythematosus, unspecified SLE type, unspecified organ involvement status (HCC),Encounter for long-term (current) use of high-risk medication To to used with Methotrexate prescription. To take 0.6ml (15mg) SC weekly 25 Each 2 025 Active folic acid (FOLVITE) 1 mg Oral Tablet TAKE 1 TABLET BY MOUTH EVERY DAY 90 Tablet 025 Active predniSONE (DELTASONE) 10 mg Oral TabletIndications :Primary osteoarthritis of right knee,Primary osteoarthritis of left knee TAKE 3 TABLETS DAILY X 5 DAYS THEN 2 TABLETS DAILY X 5 DAYS THEN 1 TABLET DAILY X 5 DAYS THEN STOP. 30 Tablet 025 Active Additional Information Patient not taking.Reported on 07/16/2024 omeprazole (PRILOSEC) 20 mg Oral Capsule, Delayed Release(E.C.) TAKE 1 CAPSULE BY MOUTH EVERY DAY 90 Capsule 025 Active LEVOthyroxine (SYNTHROID) 150 mcg Oral TabletIndications :Secondary hypothyroidism TAKE 1 TABLET BY MOUTH EVERY DAY 30 Tablet 025 Active cyanocobalamin 1,000 mcg/mL Inj SolutionIndicatio ns:B12 deficiency Inject 1 mL into the muscle every 14 days. 6 mL 1 025 Active LEVOthyroxine (SYNTHROID) 150 mcg Oral TabletIndications :Secondary hypothyroidism TAKE 1 TABLET BY MOUTH EVERY DAY 90 Tablet 1 024 2024 Discontinued Hospital, Clinic, or Other Facility Administered Medication Ordered Dose Route Frequency Start Date End Date Status methylPREDNISolone acetate (DEPO-Medrol) injection 80 mgIndications:Systemic lupus erythematosus, unspecified SLE type, unspecified organ involvement status (HCC),Rheumatoid arthritis of multiple sites without rheumatoid factor (HCC) 80 mg IM ONCE 07/16/2024 07/16/2024 E nded Active Problems Problem Noted Date Diagnosed Date Nonrheumatic aortic valve insufficiency 11/26/19 24 Overview (11/26/2023): Was mild in 2018 more moderate in 2023. Patient denies any symptoms. Assessment & Plan (11/26/2023 8:45 AM EDT): Discussed with patient today. Gave her literature on aortic regurgitation. Do not expected to cause any problems anytime soon but will need to have follow-up would like to see her at least on a yearly basis. Tobacco abuse 11/26/2023 Overview (11/26/2023): Has 13.4-pack-year smoking history is quit for months at a time in the past. Assessment & Plan (11/26/2023 8:47 AM EDT): Strongly encourage patient to quit. Discussed methods that she could quit. She has quit in the past. Especially with her lupus it puts her at much higher risk of cardiovascular events. States that she is dedicated and is going to quit again. Will continue to address at future visits. Allergic rhinitis 04/06/2023 Encounter for long-term (cur rent) use of high-risk medication 08/13/2022 Systemic lupus erythematosus 01/08/2022 Overview (07/16/2024): -Last Visit; 04/14/24 # Rheumatoid arthritis with [...] had a low + FRANCOISE of 1:80 at the time/ mouth ulcers; -synthroid improved her hair [...] malignant neoplasm of breast, squamous cell carcinoma) Hypersensitivity reaction, anaphylaxis, and infusion-related reactions. Advised to hold [...] flares; likely secondary reactive/ auto inflammatory -sees Dr/ Talita; paraproteinemia on labs 06/04/23; OTC iron -Seen by GI (leverage); normal upper and lower GI series # Cervical spondylosis (M47.812): # Microscopic hematuria (R31.29): -sees Dr. Page, UA stable Other microscopic hematuria 01/08/2022 Hair loss 11/04/2015 Vitamin D deficiency 11/04/2015 Vitamin B6 deficiency 11/04/2015 Secondary hypothyroidism 11/04/2015 Rheumatoid arthritis 06/22/2013 Migraines 12/27/2009 Depression 12/27/2009 SVT (supraventricular tachycardia) Overview (11/26/2023): [address] Mak. Assessment & Plan (11/26/2023 8:45 AM EDT): Had an episode where she when she went to the ER with tachycardia no major issues were noted but she was started on Bystolic at that time. Since then she has been feeling better. Would recommend continuation of Bystolic at this time. Resolved Problems Problem Noted Date Diagnosed Date Resolved Date Drug-induced systemic lupus erythematosus 05/08/2022 05/24/2022 Encounters Date Type Department Care Team Description 07/16/2024 4:00 PM EDT Office Visit [facility] [address] [place] [address] Selena Gray MD Systemic lupus erythematosus, unspecified SLE type, unspecified organ involvement status (HCC) (Primary Dx); Rheumatoid arthritis of multiple sites without rheumatoid factor (HCC); Encounter for long-term (current) use of high-risk medication; Vitamin D deficiency; Immunosuppressed status; Swelling of both wrists 07/15/2024 Refill [facility] [address] [address] Tayla Lam MD Medication Refill 07/15/2024 Refill [facility] [address] [address] Tayla Lam MD Medication Refill 07/02/2024 3:30 PM EDT Office Visit [facility] [address] [place] [address] Encounter for long-term (current) use of high-risk medication (Primary Dx); Systemic lupus erythematosus, unspecified SLE type, unspecified organ involvement status (HCC) 06/07/2024 Refill [facility] [address] [place] [address] Selena Gray MD Medication Refill 05/13/2024 [facility]ill [facility] [address] [place] [address] Selena Gray MD Medication Refill 05/07/2024 3:00 PM EDT Office Visit [facility] [address] [place] [address] Encounter for long-term (current) use of high-risk medication (Primary Dx); Systemic lupus erythematosus, unspecified SLE type, unspecified organ involvement status (HCC) 05/07/2024 [facility]ill [facility] [address] [place] [address] Selena Gray MD Medication Refill from Last 3 Months Immunizations Immunization Administration Dates Next Due Influenza Nasal, Unspecified Formulation 013 Influenza Vaccine Quadrivalent PF 11/04/2015 11/03/2016 Td, Unspecified Formulation 01/24/2010 Zoster Recombinant 09/26/2023 Surgical History Surgery Date Site/Laterality Comments LAPAROSCOPY DENTAL SURGERY wisdom teeth ABLATION OF DYSRHYTHMIC FOCUS 06/14/2014 S/P EPS, 3D Mapping, SVT RF ablation (DR. Mak) Medical History Medical History Date Comments Depression ALY (dyspnea on exertion) Hypertension Headache(784.0) occ migranes, se es Dr/ Velasquez Neuro Arthritis rhumatoid SVT (supraventricular tachycardia) 06/14/2014 S/P EPS, 3D Mapping, RF ablation (DR. Mak) WPW Irregular heart beat Autoimmune disease Migraine Family History Relation Name Status Comments Brother Alive Daughter Alive Father Due to accident Mother Alive Sister Alive Son Alive Social History Tobacco Use Types Packs/Day Years Used Date Smoking Tobacco: Former Cigarettes 0.5 26.7 0 04/29/1990 - 01/11/2017 Smokeless Tobacco: Never Tobacco Cessation:Counseling Given: Not Answered Alcohol Use Standard Drinks/Week Comments Yes 0 (1 standard drink = 0.6 oz pur e alcohol) occ Sexually Active Control Partners Comments Yes Condom, Other-see comments Male B irth control pill Comments No Sex and Gender Information Value Date Recorded Sex Assigned at Not on file Legal Sex Female 9:19 PM EDT Gender Identity Not on file Sexual Orientation Not on file Obstetrics History Last Filed Vital Signs Vital Sign Reading Time Taken Comments Blood Pressure 120/72 07/16/2024 3:57 PM EDT Pulse 87 07/02/2024 3:55 PM EDT Temperature 36.1 C (97 F) 07/16/2024 3:57 PM EDT Respiratory Rate 20 07/02/2024 3:55 PM EDT Oxygen Saturation 98% 07/02/2024 3:55 PM EDT Inhaled Oxygen Concentration - - Weight 86.6 kg (191 lb) 07/16/2024 3:57 PM EDT Height 170.2 cm (5' 7 ) 07/16/2024 3:57 PM EDT Body Mass Index 29.91 07/16/2024 3:57 PM EDT Plan of Treatment Upcoming Encounters Date Type Department Care Team (Late st Contact Info) Description 08/04/2024 3:45 PM EDT Office Visit [facility] [address] [place] [address] 10/22/2024 3:30 PM EDT Office Visit [facility] [address] [place] [address] Selena Gray MD [address] [place] [address] 11/25/2024 9:00 AM EDT Office Visit [facility] [address] [address] Lyle Salgado MD [address] [place] [address] Health Maintenance Due Date Last Done Comments Hepatitis B Vaccine (1 of 3 - 19+ 3-dose series) 04/22/1991 Pneumococcal Vaccine 50+ (1 of 2 - PCV) 04/22/1991 HPV/Pap Cotest 2002 DTaP/TDaP/Td (1 - Tdap) 01/25/2010 01/24/2010 Annual Wellness Exam 06/09/2015 06/08/2014 (Postpone d) Cervical Cancer Screening 10/07/2015 Pap Smear 10/07/2015 10/06/2012, 01/24/2010 Cologuard 2017 FIT 2017 Sigmoidoscopy 2017 Virtual Colonography 2017 COVID-19 Vaccine ( season) 2023 09/07/2021, 10/10/2020, 06/01/2020, Additional history exists Zoster (2 of 2) 11/21/2023 09/26/2023, 09/03/2023 Breast Cancer Screening 05/24/2024 05/25/19, 10/09/2013, 10/08/2012, Additional history exists Colon Cancer Screening 12/13/2025 Colonoscopy 12/13/2025 12/14/2015, 03/2015, 12/14/2015, Additional history exists Influenza Vaccine Completed 01/21/2024, , 12/11/2019, Additional history exists Meningococcal B Vaccine Aged Out No l onger eligible based on patient's age to complete this topic Goals Goal Patient Goal Type Associated Problems Recent Progress Patient-Stated? Author Blood Pressure < 140/90 Blood Pressure 120/72(2024 3:57 PM EDT) No Marybel Singh, CALI Maintain a healthy diet, exercise regularly and maintain an ideal body weight General No Christina Newton APRN Stay Tobacco Free Lifestyle No Christina Newton APRN Procedures Procedure Name Priority Date/Time Associated Diagnosis Comments REFLEXIVE URINE CULTURE Routine 07/22/2024 8:05 AM EDT SEDIMENTATION RATE AUTOMATED-QUEST Routine 07/22/2024 8:05 AM EDT Encounter for long-term (current) use of high-risk medication COMPREHENSIVE METABOLIC PANEL-QUEST Routine 07/22/2024 8:05 AM EDT Encounter for long-term (current) use of high-risk medication CBC WITH AUTO DIFF-QUEST Routine 07/22/2024 8:05 AM EDT Encounter for long-term (current) use of high-risk medication URINALYSIS, COMPLETE WITH REFLEX TO CULTURE-QUEST Routine 07/22/2024 8:05 AM EDT Encounter for long-term (current) use of high-risk medication MM MAMMO DIGITAL SVETLANA SCREEN BILAT Routine 05/24/2022 8:06 AM EDT Encounter for screening mammogram for malignant neoplasm of breast [facility] EGD-COLONOSCOPY Routine 12/14/2015 7:20 AM EDT EMPLOYMENT EDUCATIONAL COORD CYTOLOGY REPORT Routine 10/06/2012 1 2:00 AM EDT from Last 3 Months or Most Recently Relevant to Health Maintenance Results * REFLEXIVE URINE CULTURE (07/22/2024 8:05 AM EDT) REFLEXIVE URINE CULTURE [facility] Comment:CULTURE INDICATED - RESULTS TO FOLLOW 07/22/2024 8:05 AM EDT 07/22/2024 8:05 AM EDT Selena Gray MD [facility]-URINE ORDERABLES Final Res ult [facility] [address] [place] [address] * (ABNORMAL) URINALYSIS, COMPLETE WITH REFLEX TO [...] ORDERABLES Fi nal Result Performing Organization Address [facility]/ZIP Co de Phone Number [facility] [address] [place] [address] * SEDIMENTATION RATE AUTOMATED-QUEST (07/22/2024 8:05 AM EDT) Sed Rate 17 < OR = 30 mm[facility] 07/22/2024 8:05 AM EDT 07/22/2024 8:05 AM EDT Selena Gray MD [facility]-HEMATOLOGY ORDERABLES Yuly l Result Performing Organization Address City/[facility]/ZIP Co de Phone Number [facility] [address] [place] [address] * COMPREHENSIVE METABOLIC PANEL-QUEST (07/22/2024 8:05 AM [...] MD [facility]ST-CHEMISTRY ORDERABLES Final Result [facility] [address] [place] [address] * CBC WITH AUTO DIFF-QUEST (07/22/2024 8:05 [...] 8:05 AM EDT us Selena Gray MD [facility]-HEMATOLOGY ORDERABLES Yuly l Result EVELINA [facility] [address] [place] [address] * MM MAMMO DIGITAL SVETLANA SCREEN BILAT (05/24/2022 8:06 AM EDT) Anatomical Region Laterality Modality Breast Bilateral Mammography 05/24/2022 8:56 AM EDT Impressions 05/24/2022 8:56 AM EDT Negative ([id number]) ~ RECOMMENDATION: Routine screening mammogram in 1 year. ~ DISCLAIMER * Any patient with a palpable abnormality, unexplained by breast imaging, should be managed on clinical basis by the attending physician. * Breast imaging has a false negative rate of 15%. * The patient was notified by mail of the results of this examination. *The patient's information was entered into a reminder system with a target due date for the next mammogram, in accordance with the [employer] and the Society of Breast Imaging recommendations. Narrative 05/24/2022 8:56 AM EDT Procedure:MM MAMMO DIGITAL SVETLANA SCREEN BILAT ~ Reason for exam: screening, asymptomatic. Z12.31-Encounter for screening mammogram for malignant neoplasm of dalsrh-SZZ-49-CM ~ MM MAMMO DIGITAL SVETLANA SCREEN BILAT Bilateral CC and MLO view(s) were taken. There are scattered fibroglandular densities. Prior study comparison: Compared with prior studies the most recent being 10/09/13, 10/08/12 No mammographic evidence of malignancy. ~ Procedure Note Genet Mahoney MD - 05/24/2022 Procedure:MM MAMMO DIGITAL SVETLANA SCREEN BILAT ~ Reason for exam: screening, asymptomatic. Z12.31-Encounter for screening mammogram for malignant neoplasm of sudrkr-ODR-63-CM ~ MM MAMMO DIGITAL SVETLANA SCREEN BILAT Bilateral CC and MLO view(s) were taken. There are scattered fibroglandular densities. Prior study comparison: Compared with prior studies the most recentbeing 10/09/13, 10/08/12 No mammographic evidence of malignancy. ~ IMPRESSION: Negative ([id number]-8) ~ RECOMMENDATION: Routine screening mammogram in 1 year. ~ DISCLAIMER * Any patient with a palpable abnormality, unexplained by breast imaging, should be managed on clinical basis by the attending physician. * Breast imaging has a false negative rate of 15%. * The patient was notified by mail of the results of this examination. *The patient's information was entered into a reminder system with atarget due date for the next mammogram, in accordance with the [employer] and the Society of Breast Imaging recommendations. Maria G Laurent INSTRUMENTS SALES REPRESENTATIVE IMG MAMMOGRAPHY ORDERABLES Fin al Result * [facility] EGD-COLONOSCOPY (12/14/2015 7:20 AM EDT) 12/14/2015 7:20 AM EDT Narrative [facility] - 12/14/2015 7:20 AM EDT [facility] [place] [address] EGD-Colonoscopy Report Date: 12/14/2015 7:20 AM Patient Name: LUCILLE RICO Endoscopist(s): Brian Chisholm MD Gender: Female (age): 1970 (45) Referring Physician: Shawn Ramirez MD [address] [place] [address] (phone) (fax) Anesthesia Provider: Roge Mast CRNA (Nurse business computers teacher) Nurse(s): Galina العلي, RN (Pre-Procedure) Rose Hopper, RN, BSN (Intra-Procedure) Jeana Sam, RN, BSN (Post-Procedure) EGD Instrument(s): E-#8([id number]) Colonoscopy Instrument(s): C-5([id number]) ASA Class: P2 - 12/14/2015 6:56 AM Roge Mast History of Present Illness: LUCILLE has been assessed and approved for moderate sedation. The History and Physical was reviewed and no changes were noted regarding medications, allergies or medical history. Administered Medications: lidocaine (PF) 40 mg IV propofol 400 mg IV EGD Indications: Weight Loss, Abnormal: 783.21 - R63.4 Anemia, Iron Deficiency: 280.9 - D50.9 Colonoscopy Indications: Change in Bowel Habits: 787.99 - R19.4 Anemia, Iron Deficiency: 280.9 - D50.9 Vital Signs: Weight (lbs/oz) Height (ft/in) BMI 164 / 5 / 7 25.68 BP (mmHg) Pulse (ppm) Rhythm Resp/min SPO2 (%) 138/89 72 Regular 20 99 Physical Exam: Physical exam was performed on 12/14/2015 at 6:41 AM. Constitutional: Appearance: well nourished,well-developed, well groomed, in no acute distress.. ENMT: Lips/teeth/gums: normal oral mucosa, lips and gums; good dentition. Oropharynx: tongue mid line, normal movement, mucous membranes pink and moist, no oral lesions or exudate. Neck: Neck: normal ROM. Respiratory: Effort: non labored, normal effort. Auscultation: clear to ausculatation bilaterally; no wheezes, rhonchi or rales. Cardiovascular: Auscultation: normal rate and rhythm; normal S1 and S2; no murmurs, rubs or gallops. Gastrointestinal/Abdomen: Abdomen: flat, soft, nontender, nondistended, no hepatosplenomegaly, no guarding, no rebound, no masses, normal bowel sounds. Liver/Spleen: no hepatosplenomegaly. Psychiatric: Orientation: oriented to time, space and person. Mood and affect: no evidence of depression, anxiety or agitation. General Procedure: The procedure, indications, preparation and potential complications were explained to the patient, who indicated understanding and signed the corresponding consent forms. MAC with IV sedation was administered by nurse business computers teacher/ anesthesiologist. Continuous pulse oximetry, heart rate and blood pressure monitoring was performed. Supplemental oxygen was used. EGD EGD Procedure: Patient was placed in left lateral decubitus position. The endoscope was introduced through mouth and advanced under direct visualization until second part of the duodenum reached. The vocal cords were visualized. Patient tolerance to the procedure was good. The procedure was not difficult. EGD Limitations/Complications: There were no apparent limitations or complications EGD Findings: Esophagus Mucosa Normal mucosa was noted in the whole esophagus. Stomach Mucosa Normal mucosa was noted in the whole stomach. Duodenum Mucosa Normal mucosa was noted in the whole examined duodenum. Multiple cold forceps biopsies were performed for histology. Colonoscopy Colonoscopy Procedure: This is an average risk patient undergoing a Diagnostic colonoscopy. Prior colonoscopy was performed The quality of preparation was Adequate. Patient was placed in left lateral decubitus position. The colonoscope was introduced through rectum and advanced under direct visualization until cecum, appendiceal orifice and ileo-cecal valve reached cm. The appendiceal orifice and the ileo-cecal valve were identified. The colonoscope was retroflexed within the rectum. Careful visualization was performed as the instrument was withdrawn. Patient tolerance to the procedure was good. The procedure was not difficult. Digital exam was normal. Colonoscopy Limitations/Complications: There were no apparent limitations or complications Colonoscopy Findings: Mucosa Normal mucosa was noted in the whole colon. There were no AVMs, diverticula, polyps, masses, evidence of colitis or other abnormalities seen. Retroflexion of the scope in the rectum revealed no abnormalities. EGD Impressions: Normal mucosa in the whole examined duodenum. (Biopsy). Normal mucosa in the whole esophagus. Normal mucosa in the whole stomach. Colonoscopy Impressions: Normal mucosa in the whole colon. Plan: Follow up with Dr. Chisholm in 4-6 weeks Continue home medications Await biopsy results Start Iron supplement twice daily CBC prior to next office visit Colonoscopy in 10 years, or sooner if clinically indicated. Samples: Jar # 1 : Biopsy in the whole duodenum Findings: R/O Celiac Sprue Test(s) requested: Histology Pathology: Pathology was sent to lab, waiting for results Brian Chisholm MD Electronically signed on 12/14/2015 7:30:46 AM by Brian Chisholm MD Brian Chisholm MD GI PROCEDURE ORDERABLES Final Result Performing Organization Address City/State/[facility] Co de Phone Number [facility] [address] [place] [address] * EMPLOYMENT EDUCATIONAL COORD CYTOLOGY REPORT (10/06/2012 12:00 AM EDT) [employer] Cytology Report PATIENT NAME:ISREAL ARANGO [employer] Cytology Report Accession Number Collected Date/Time Received Date/Time [id number] 10/06/12 00:00 EDT 10/07/12 05:01 EDT GY Specimen Source Specimen Vag/Cerv/Endocx?: Vag/Cerv/Endocerv Statement of Adequacy Satisfactory for Evaluation. Transformation Zone Present. Diagnosis NEGATIVE FOR INTRAEPITHELIAL LESION OR MALIGNANCY. Comment The Pap Smear is a screening test that aids in the detection of cervical cancer and cancer precursors. Both false positive and false negative results can occur. The test should be used at regular intervals, and positive results should be confirmed before definitive therapy. Processed using the [employer] Service Engineer automated cytology screening device ([employer]). Manual Qa Tester: KEZIA REYNOSO 10/09/2012 Completed by: TIFFANY Lopez (Electronically signed by) 10/09/2012 [facility] 10/06/2012 us Anuradha Watkins MD PATHOLOGY ORDERABLES Final R esult [facility] [address] [place] [address] from Last 3 Months or Most Recently Relevant to Health Maintenance Insurance Member Subscriber Plan / Payer ( fective 2009-Present) Name:Isreal Rico Relation to Subscriber:Self Name:Isreal Rico Payer ID:[id number] (NAIC) Group ID:[id number] Type:Not on file Address: [address] Member Subscriber Plan / Payer ( fective 2009-Present) Name:Isreal Rico Relation to Subscriber:Self Name:Isreal Rico Payer ID:[id number] (NAIC) Group ID:[id number] Type:Not on file Address: [address] PPO Care Teams Drupal Web Developer Relationship Specialty Start Date End Date Maria G Laurent APRN 1210 [facility] [address] [place] [address] PCP - General Nurse Practitioner 08/20/19 Jonah Eng MD [address] [place] [address] Physician Psychiatry & Neurology-Clinical Neurophysiology 09/16/13 Jaren Duran MD [address] [place] [address] Internal Medicine-Cardiovascular Disease 04/22/14 Selena Gray MD [address]16 [place] [address] Internal Medicine-Rheumatology 04/30/22
--- OUTSIDE RECORDS SUMMARY | 2024-07-23 09:20 | XMS_ITS | Encounter Summary ---
Author Organization [place] [address] Care Team Providers Care Watershed Program Manager Name Role Phone Jonah Eng MD Unavailable Jaren Duran MD Unavailable Unavailable Shawn Ramirez MD Primary Care Provider [phone] Maria G Laurent APRN Primary Care Provider [phone] Selena Gray MD Unavailable Encounter Details Date Type Department Care Team (Late st Contact Info) Description 06/14/2014 Orders Only [facility] 7[address] [facility] [address] [place] [address] Megan Carlson, CARTON FOLDER [address] [place] [address] Social History Tobacco Use Types Packs/Day Years Used Date Smoking Tobacco: Former Cigarettes 0.5 20 1 03/14/1988 - 01/11/2009 Smokeless Tobacco: Never Alcohol Use Standard Drinks/Week Comments Yes 0 (1 standard drink = 0.6 oz pur e alcohol) Sexually Active Control Partners Comments Yes Condom, [...] [facility] [address] [place] [address] 10/22/2024 3:30 PM EDT Office [facility] [address] [place] [address] Selena Gary MD [address] [place] [address] 11/25/2024 9:00 AM EDT Office Visit [facility] 711 [place] [address] Lyle Salgado MD [address] [place] [address] documented as of this encounter Procedures Procedure Name Priority Date/Time Associated Diagnosis Comments ELECTROPHYSIOLOGY OR IMPLANT PROCEDURE LOG Routine 06/14/2014 11:36 AM EDT documented in this encounter Results * ELECTROPHYSIOLOGY OR IMPLANT PROCEDURE LOG (06/14/2014 11:36 AM EDT) 06/14/2014 11:3 6 AM EDT us Megan Carlson CARTON FOLDER CARDIAC CATH ORDERABLES Ed ited Result - Final [facility] 1 [place] [address] documented in this encounter Visit Diagnoses Not on filedocumented in this encounter Care Teams Watershed Program Manager Relationship Specialty Start Date End Date Shawn Ramirez MD [address] [place] [address] PCP - General Family Medicine 05/11/14 07/07/18 Maria G Laurent APRN 1210 [facility] [address] [place] [address] PCP - General Nurse Practitioner 08/20/19 Jonah Eng MD [address] [place] [address] Physician Psychiatry & Neurology-Clinical Neurophysiology 09/16/13 Jaren Duran MD [address] [place] [address] Internal Medicine-Cardiovascular Disease 04/22/14 Selena Gray MD [address] [place] [address] Internal Medicine-Rheumatology 04/30/22 documented as of this encounter
--- OUTSIDE RECORDS SUMMARY | 2024-07-23 09:20 | XMS_ITS | Encounter Summary ---
Author Organization [place] [address] Care Team Providers Care Tobacco Acreage Measurer Name Role Phone Jonah Eng MD Unavailable Jaren Duran MD Unavailable Unavailable Maria G Laurent APRN Primary Care Provider [phone] Selena Gray MD Unavailable Reason for Visit * Reason Comments Medication Refill Encounter Details Date Type Department Care Team (Late st Contact Info) Description 07/15/2024 Refill [facility] Physicians [facility] [address] [address] Tayla Lam MD [address] [address] Medication Refill Social History Tobacco [...] Refills Last Filled Start Date End Date LEVOthyroxine (SYNTHROID) 150 mcg Oral TabletIndications:Se condary hypothyroidism TAKE 1 TABLET BY MOUTH EVERY DAY 30 Tablet 07/15/2024 documented in this encounter Miscellaneous Notes * Telephone Encounter - Shaina Matos CPhT - 07/15/2024 8:12 AM EDT Levothyroxine 150 Patient has not had an office visit for any reason in >13 months (395 days). Lab tests needed, if any: Abnormal TSH and TSH (12 months) Defer to office. documented in this encounter Plan of Treatment Upcoming Encounters Date Type Department Care Team (Late st Contact Info) Description 08/04/2024 3:45 PM EDT Office Visit [facility] [address] [place] [address] 10/22/2024 3:30 PM EDT [facility] [address] [place] [address] Selena Gray MD [address] [place] [address] 11/25/2024 9:00 AM EDT Office Visit [facility] [address] [address] Lyle Salgado MD [address] [place] [address] documented as of this encounter Goals Goal Patient Goal Type Associated Problems Recent Progress Patient-Stated? Author Blood Pressure < 140/90 Blood Pressure 120/72(2024 3:57 PM EDT) No Marybel Singh RMA Maintain a healthy diet, exercise regularly and maintain an ideal body weight General No Christina Newton APRN Stay Tobacco Free Lifestyle No Christina Newton APRN documented as of this encounter Visit Diagnoses Diagnosis Secondary hypothyroidism Other specified acquired hypothyroidism documented in this encounter Discontinued Medications Medication Sig Discontinue Reason Start Date End Da te LEVOthyroxine (SYNTHROID) 150 mcg Oral TabletIndications:Secondar y hypothyroidism TAKE 1 TABLET BY MOUTH EVERY DAY 01/21/2024 07/15/2024 documented as of this encounter Care Teams Tobacco Acreage Measurer Relationship Specialty Start Date End Date Maria G Laurent APRN 1210 [facility] [address] [facility] [address] [place] [address] PCP - General Nurse Practitioner 08/20/19 Jonah Eng MD [address] [address] Physician Psychiatry & Neurology-Clinical Neurophysiology 09/16/13 Jaren Duran MD [address] [facility] [address] [place] [address] Internal Medicine-Cardiovascular Disease 04/22/14 Selena Gray MD [address] [place] [phone] Internal Medicine-Rheumatology 04/30/22 documented as of this encounter
[2024-07-24 05:09] LABS: Hepatitis B Surface Antigen Negative (Negative)
== END 2024-07-22 23:59 | disposition home or self-care (01) ==
LOC: LAB.DROPOF 07-23 09:13
PROVIDERS: PCP Nurse Practitioner; Visit Provider Nurse Practitioner
DX: Z13.0 Encounter for screening for diseases of the blood and blood-forming organs and certain disorders involving the immune mechanism (principal); Z13.220 Encounter for screening for lipoid disorders; E03.9 Hypothyroidism, unspecified; I10 Essential (primary) hypertension; E66.9 Obesity, unspecified; Z13.1 Encounter for screening for diabetes mellitus
CPT/HCPCS: 80053; 80061; 82043; 82306; 82570; 82607; 83036; 84439; 84443; 85025; 86803; 87340; 87389

== ENCOUNTER 2024-08-11 15:12 | Outpatient (CLI) | payer BC, SELFPAY ==
--- OUTSIDE RECORDS SUMMARY | 2024-07-02 15:30 | XMS_ITS | Encounter Summary ---
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 Procedures [place] INJ ANIFROLUMAB-FNIA 1MG Selena Gray MD [address] [place] [address] Phone: tel: fax: [facility] [address] [place] [address] Referral ID Status Reason Start Date Expiration Date V isits Requested Visits Authorized [id number] Authorized 10/02/2023 99 99 Encounter Details Date Type Department Care Team (Latest Contact Info) Description 07/02/2024 3:30 PM EDT Office Visit [facility] [place] [address] [place] [phone] Encounter for long-term (current) use of high-risk medication (Primary Dx); Systemic lupus erythematosus, unspecified SLE type, unspecified organ involvement status (HCC) Social History Tobacco Use Types Packs/Day Years Used Date Smoking Tobacco: Former Cigarettes 0.5 26.7 0 04/29/1990 - 01/11/2017 Smokeless Tobacco: Never Alcohol Use Standard Drinks/Week Comments Yes 0 (1 standard drink = 0.6 oz pur e alcohol) occ Sexually Active Control Partners Comments Yes Condom, Other-see comments Male B irth control pill Comments No Sex and Gender Information Value Date Recorded Sex Assigned at Not on file Legal Sex Female 9:19 PM EDT Gender Identity Not on file Sexual Orientation Not on file documented as of this encounter Last Filed Vital Signs Vital Sign Reading Time Taken Comments Blood Pressure 122/70 07/02/2024 3:55 PM EDT Pulse 87 07/02/2024 3:55 PM EDT Temperature 36.6 C (97.9 F) 07/02/2024 3:25 PM EDT Respiratory Rate 20 07/02/2024 3:55 PM EDT Oxygen Saturation 98% 07/02/2024 3:55 PM EDT Inhaled Oxygen Concentration - - Weight 85.7 kg (189 lb) 07/02/2024 3:25 PM EDT Height - - Body Mass Index 29.6 04/14/2024 1:17 PM EST documented in this encounter Progress Notes * Chrissy Rico, RN - 07/02/2024 3:30 PM EDT Patient tolerated saphnelo 300mg infusion well. Discharge stable. documented in this encounter Plan of Treatment Upcoming Encounters Date Type Department Care Team (Late st Contact Info) Description 08/25/2024 4:45 PM EDT [facility] [place] [address] [place] [phone] Tayla Lam MD [address] [facility] [address] [place] [phone] 09/01/2024 3:15 PM EDT Office Visit [facility] [address] [place] [address] 10/22/2024 3:30 PM EDT Office Visit [facility] [address] [place] [address] Selena Gray MD [address] [place] [address] 11/25/2024 9:00 AM EDT Office Visit [facility] [address] [address] Lyle Salgado MD [address] [place] [address] documented as of this encounter Goals Goal Patient Goal Type Associated Problems Recent Progress Patient-Stated? Author Blood Pressure < 140/90 Blood Pressure 120/70(2024 4:16 PM EDT) No Marybel Singh RMKelly Maintain a healthy diet, exercise regularly and maintain an ideal body weight General No Christina Newton APRN Stay Tobacco Free Lifestyle Christina Stevenson APRN documented as of this encounter Visit Diagnoses Diagnosis Encounter for long-term (current) use of high-risk medication- Primary Encounter for long-term (current) use of other medications Systemic lupus erythematosus, unspecified SLE type, unspecified organ involvement status (HCC) documented in this encounter Administered Medications Inactive Administered Medications - up to 1 most recent administrations Medication Order MAR Action Action Date Dose Rate Site anifrolumab-fnia (SAPHNELO) 300 mg in sodium chloride 0.9 % 100 mL infusion 300 mg, Intravenous, ONCE, 1 dose, On Tamia 07/02/24 at 1530, Administer over 30 Minutes, Administer with 0.22 micron filter, Dx: 1. Encounter for long-term (current) use of high-risk medication 2. Systemic lupus erythematosus, unspecified SLE type, unspecified organ involvement status (HCC)Indications:Encounter for long-term (current) use of high-risk medication,Systemic lupus erythematosus, unspecified SLE type, unspecified organ involvement status (HCC) IV Started 07/02/2024 3:33 PM EDT 300 mg 200 mL /hr documented in this encounter Care Teams Area Plant Manager Relationship Specialty Start Date End Date Maria G Laurent APRN [address] [facility] [address] [place] [phone] PCP - General Nurse Practitioner 08/20/19 Jonah Eng MD [address] [place] [address] Physician Psychiatry & Neurology-Clinical Neurophysiology 09/16/13 Jaren Duran MD [address] [place] [address] Internal Medicine-Cardiovascular Disease 04/22/14 Selena Gray MD [address] [place] [address] Internal Medicine-Rheumatology 04/30/22 documented as of this encounter
--- OUTSIDE RECORDS SUMMARY | 2024-07-16 16:00 | XMS_ITS | Encounter Summary ---
Author Organization [facility] Address [address] [place] [address] Care Team Providers Care Web Art Director Name Role Phone Jonah Eng MD Unavailable Jaren Duran MD Unavailable Unavailable Maria G Laurent APRN Primary Care Provider [phone] Selena Gray MD Unavailable Reason for Visit * Reason Comments Lupus Encounter Details Date Type Department Care Team (Latest Contact Info) Description 07/16/2024 4:00 PM EDT Office Visit [facility] [address] [place] [address] Selena Gray MD [address] [place] [address] Systemic lupus erythematosus, unspecified SLE type, unspecified organ involvement status (HCC) (Primary Dx); Rheumatoid arthritis of multiple sites without rheumatoid factor (HCC); Encounter for long-term (current) use of high-risk medication; Vitamin D deficiency; Immunosuppressed status; Swelling of both wrists Social History Tobacco Use Types Packs/Day Years [...] Sign Reading Time Taken Comments Blood Pressure 120/72 07/16/2024 3:57 PM EDT Pulse - - Temperature 36.1 C (97 F) 07/16/2024 3:57 PM EDT Respiratory Rate - - Oxygen Saturation - - Inhaled Oxygen Concentration - - Weight 86.6 kg (191 lb) 07/16/2024 3:57 PM EDT Height 170.2 cm (5' 7 ) 07/16/2024 3:57 PM EDT Body Mass Index 29.91 07/16/2024 3:57 PM EDT documented in this encounter Progress Notes * Selena Gray MD - 07/16/2024 4:00 PM EDT Images from the original note were not included. Subjective Subjective: Patient ID: Anne Rico is a 54 y.o. female. Chief Complaint Patient presents with Lupus HPI: Anne Rico is a 54 y.o.female seen back today for follow up of her SLE: depot-medrol on the last visit; she reports helped; she reports several issues since her last visit; she developed shingles now resolved and renal stones; this has flared her joints; pain in her hands, no energy; AM stiffness lasting 20 minutes; feet and ankles; reports improvement overall after increase of her MTX and change to subQ but flare over the last several weeks. Denies any rashes, oral or nasal ulcers, no further hair loss, no hair growth RAPID 3 filled out by the patient and reviewed by myself today = 6.3 up from 07/21 REVIEW OF SYSTEMS See HPI for further details. Review of systems otherwise negative. Past Medical History: Diagnosis Date Arthritis rhumatoid Autoimmune disease Depression ALY (dyspnea on exertion) Headache(784.0) occ migranes, sees / [facility] Hypertension Irregular heart beat Migraine SVT (supraventricular tachycardia) 06/14/2014 S/P EPS, 3D Mapping, RF ablation (DR. Mak) WPW Social History Tobacco Use Smoking status: Former Current packs/day: 0.00 Average packs/day: 0.5 packs/day for 26.7 years (13.4 ttl pk-yrs) Types: Cigarettes Start date: 04/29/1990 Quit date: 01/11/2017 Years since quittin.5 Smokeless tobacco: Never Substance Use Topics Alcohol use: Yes Types: 2 Glasses of wine per week Comment: occ History reviewed. No pertinent family history. Allergies Allergen Reactions Axert [Almotriptan Malate] Nausea And Vomiting and Other (See Comments) Unknown Certolizumab Pegol Hives Outpatient Medications Marked as Taking for the 07/16/24 encounter (Office Visit) with Selena Gray MD Medication Sig Dispense Refill albuterol (PROVENTIL HFA;VENTOLIN HFA) 90 mcg/actuation Inhl HFA Aerosol Inhaler Inhale 2 Puffs into the lungs every 4 hours as needed. 1 Each 0 anifrolumab-fnia (SAPHNELO IV) Inject into the vein every 28 days. Cholecalciferol, Vitamin D3, (VITAMIN D3) 125 mcg (5,000 unit) Oral Tablet Take 5,000 Units by mouth every other day. cyanocobalamin 1,000 mcg/mL Inj Solution Inject 1 mL into the muscle every 14 days. 6 mL 1 DULoxetine (CYMBALTA) 20 mg Oral Capsule, Delayed Release(E.C.) Take 20 mg by mouth 2 times daily. ESTARYLLA 0.25-35 mg-mcg Oral Tablet Take 1 Tablet by mouth daily. ferrous sulfate 325 mg (65 mg iron) Oral Tablet Take 1 Tab by mouth 3 times daily. 90 Tab 5 FLUoxetine 60 mg Oral Tablet Take 0.5 Tabs by mouth daily. folic acid (FOLVITE) 1 mg Oral Tablet TAKE 1 TABLET BY MOUTH EVERY DAY 90 Tablet 0 hydrocortisone 0.5 % Top Cream APPLY DAILY TO RASH NEEDED 28.4 g 0 ibuprofen (ADVIL;MOTRIN) 200 mg Oral Tablet Take 2 Tabs by mouth 3 times daily as needed for Pain. 30 Tab 2 Insulin Syringe-Needle U-100 (BD INSULIN SYRINGE) 1 mL 27 gauge x 1/2 Misc Syringe To to used withMethotrexate prescription. To take 0.6ml (15mg) SC weekly 25 Each 2 KLOR-CON M20 20 mEq Oral Tab Sust.Rel. Particle/Crystal Take 20 mEq by mouth 2 times daily. leucovorin (WELLCOVORIN) 5 mg Oral Tablet Take 8-12 hours after you methotrexate 5 Tablet 3 LEVOthyroxine (SYNTHROID) 150 mcg Oral Tablet TAKE 1 TABLET BY MOUTH EVERY DAY 30 Tablet 0 losartan-hydrochlorothiazide (HYZAAR) 100-12.5 mg Oral Tablet Take 1 Tablet by mouth daily. methotrexate sodium, PF, 25 mg/mL Inj Solution Subcutaneous (Inject under the skin) 1 mL once a week. 8 mL 0 nebivoloL (BYSTOLIC) 10 mg Oral Tablet Take 10 mg by mouth daily. omeprazole (PRILOSEC) 20 mg Oral Capsule, Delayed Release(E.C.) TAKE 1 CAPSULE BY MOUTH EVERY DAY 90 Capsule 0 pyridoxine, vitamin B6, (B-6) 50 mg Oral Tablet TAKE 1 TABLET BY MOUTH EVERY OTHER DAY 45 Tablet 7 Syringe with Needle, Disp, (BD LUER-KERVIN SYRINGE) 3 mL 25 gauge x 1 Misc Syringe USE EVERY 2 WEEKS WITH B12 INJECTION. 6 Each 3 Objective: Physical Exam Vital Signs: BP 120/72 (BP Location: Left arm, Patient Position: Sitting) Temp 97 ??F (36.1 ??C) (Forehead) Ht 5' 7 (1.702 m) Wt 191 lb (86.6 kg) BMI 29.91 kg/m?? Body mass index is 29.91 kg/m??. Well nourished and well developed in no acute distress. Affect is normal and appropriate. Mucosa pink and moist. Chest is CTA with no wheezes. Heart is RRR without murmurs. Gait is WNL. -Neuro is grossly intact with no obvious tremors; Skin; scalp patches, no erythema -wearing a wig today MSK: Spine: neck with near full ROM Upper Extremities b/l wrist mild swelling mild tenderness; and b/l 1st DIP, left 2,3rd MCP s mild synovitis; ; b/l shoulder have no tenderness on full ROM Lower Extremities: ,B/L knees no swelling or tenderness; b/l lateral hip tenderness in bursa regionwith no pain in hip ROM, b/l ankles swelling with tenderness; -Muscle strength and coordination is grossly intact; -IMAGING: -bone scan dated 07/20/13 showed uptake at left wrist in region of the lunate, hallux MTP degenerative change -CT scan positive only for healed granulomatosis disease and small lymph nodes; - f/u CT dated 12/03/13 was normal -Repeat CT Chest 11/2014; was normal -MRI dated 03/29/16 of cervical spine shows left paracentral disc protrusions mild to moderate mass effect -[facility] taken [facility] 06/17/13 ; normal cervical spine; hands, r feet with R 1st MTP degenerative arthritis. -DEXA Scans: -Advised an earlier DEXA screen due to sustained prior glucorticoid use -Documents: -has been unable to work due to her chronic symptoms -statement for disability written 07/20/14 and again 10/29/16 -FMLA paperwork filled 12/23/13 -INJECTIONS: -depot 80 mg last administered; 06/26/23; again 07/16/24 -depot-medrol IM 120m04/14/24 - L wrist injection 06/28/14 down under u/s for severe arthritis -R wrist and b/l knee injections on done under u/s for severe arthritis 03/17/14 -b/l Knee cortisone injections; 09/03/23 -R wrist repeated 12/10/16 -left wrist cortisone 04/24/16 -b/l ankles 04/24/16 -R ankle cortisone 08/06/16 -b/l wrists cortisone 08/06/16 -R medial epicondyle; cortisone -PROCEDURES: -80mg methylprednisolone IM was given without complication. The risks of methylprednisolone were reviewed by me with the patient, including but not limited to the risk of hyperglycemia, cataracts, osteopenia, psychosis, insominia, avascular necrosis and weight gain -LABS: -TB gold dated 06/04/23; negative; reordered -Labs dated; 12/31/23; reviewed with the patient; pertinent positive and negatives include; CBC WBC14 from 16 H, bandemia, (on prednisone for bronchitis) plat. 418 H, normal CMP, ESR, CRP 11.7 from 8, vit. D 76, dsdna neg. Normal complements; -labs 10/21/23; prot/creat. = 0.2, UA bland -labs ordered/advised last visit; not done overdue -needs repeat TB -repeat UA w nephro. Or Q 6 months if not done; she will try to return next week Assessment and Plan: Diagnoses and all orders for this visit: Systemic lupus erythematosus, unspecified SLE type, unspecified organ involvement status (HCC) (Chronic) Overview: -Last Visit; 04/14/24 # Rheumatoid arthritis with rheumatoid factor of multiple sites without organ or systems involvement (M05.79): # Ankle pain (M25.579): # Cervical spondylosis (M47.812): # Wrist pain: # Fatigue: -positive RF and elevated inflammatory markers 07/26/13 -RA overlap with SLE; RHUPUS -disease activity: depot-medrol on the last visit; called x 1 for prednisone taper; improved on change to subQ MTX but flare over the last few weeks of RA -lupus appear under good control -cont. saphnelo infusions monthly (first infusion 10/21/23) last infused 07/02/24; change from benlysta; -last visit advised to change MTX from PO to subQ MTX increasing dose to 25mg (1cc 04/14/24) her sister will assist w injections has done in the past; (restarted 05/2022); from 20mg (8 tabs) qweek some nausea with PO doses; cont. Leucovorin -it was decided to do a depot-medrol today -fatigue is worse;now on Q2 week B12 injections through endocrine -tapered off low dose chronic PRN prednisone Feb 2021 -Duexis PRN -responsive to R wrist injection and b/l ankles -Initial symptoms: low grade fevers;auto inflammatory response leucocytosis, soft tissue swelling over upper chest no palpable lymph nodes and night sweats w flares; -FAILED: -Failed actemra infusion; not effective and developed; oral, nasal ulcers, hair loss; malar rash and an + FRANCOISE (total of 3 infusions 2019) -failed orencia infusions and subQ; improved joints but not SLE symptoms d/c 04/06/19 -Failed Humira (hives) but effective -Failed enbrel; ineffective -Failed Xeljanz not effective X 3 months -change to subQ MTX was not effective -Failed arava; not as effective as MTX -Failed Simponi infusions; lost responsiveness -Failed Cimzia; 2 injections; rash over injection sites/ back/ chest / and face; rash did not resolve despite prednisone for several months and it was determined this was; likely not cimzia related -Failed diclofenac. --Failed sulfasalazine -Failed Plaquenil; rash -Benlysta infusions (started 07/29/20); last infused: 08/23/23; effective but continued symptoms # Systemic lupus erythematosus (M32.9): # RASH (R21): # Loss of hair (L65.9): -dx 08/2018 rash malar region; /nasal ulcers, hair loss; polyarthritis/ anemia -FRANCOISE dated 02/02/19; 1:80 (on chronic prednisone) negative dsdna; overlap with RA -disease is active: mainly RA as above; SLE is stable, UA /labs reordered last visit not done; overdue ordered she will return lab closed discussed importance will need to hold MTX if labs cannot be done -change from benlysta to saphnelo -MTX 25mg subQ -not on plaquenil (allergy) -PRN hydrocrtisone cream for face instead of PO prednisone -nephro. Follows her UA -2014 developed complete loss of hair due to thyroid deficiency but also had a low + FRANCOISE of 1:80 atthe time/ mouth ulcers; -synthroid improved her hair loss thyroid now stable follows with endo; hold of her MTX did not change hair loss -FAILED: -Failed plaquenil; rash (advised to see allergy to determine if she can retry -Failed all PO DMARDs -failed Benlysta as above responsive but active RA and SLE # Taking medication for chronic disease (Z79.899): # immunosuppressed Status: -Patient advised to review medication package insert, on all prescribed medications -advised to hold DMARD's/Biologics for any infection or surgery, should contact us for further guidance on how/when to hold therapy. Advised to keep up to date on all CDC advised vaccines, but not advised any live vaccinations. Hold DMARD's for 1 week post vaccination. -developed Shingles 2021; completed Shingrix -recently changed to combined OCP today advised to start progesterone containing control if possible estrogen not ideal with age and SLE -MTX ; Risks, benefits and adverse effects were discussed including but not limited to the risks of cytopenias, liver and bone marrow toxicity and the risks of teratogenicity in the case of conception. We discussed the need for regular blood work to in order to monitor toxicity with Q 1 month labs X 3 during initiation then Q 2-3 months after that. We also discussed the need to start daily folic acid along with the methotrexate -cont folic/ rheumate -Saphnelo: -We disucssed common and serious side effects of Anifrolumab including but not limited to the risk of infections, including severe infections, bronchitis (11%), upper respiratory tract infections, malignant neoplasms (including malignant neoplasm of breast, squamous cell carcinoma) Hypersensitivityreaction, anaphylaxis, and infusion-related reactions. Advised to hold med for infections or surgery. Should contact us for further guidance on how/when to hold the therapy. -advised to have both shingrix vaccinations completed prior to starting -PRednisone; we discussed risks of this medication including but not limited to the risk of hyperglycemia, cataracts, osteopenia, psychosis, insomnia, avascular necrosis and weight gain # Headache (R51): -history of migraines; symptoms stable; seen by Dr. 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 30mg -anxiety stable; denies depression/SI/HI # Anemia (D64.9): # Leukocytosis (D72.829): # abnormal SPEP -recurrent leukocytosis correlates with flares; likely secondary reactive/ auto inflammatory -sees / [facility]; paraproteinemia on labs 06/04/23; OTC iron -Seen by GI (rodney); normal upper and lower GI series # Cervical spondylosis (M47.812): # Microscopic hematuria (R31.29): -sees Dr. Page, stable Orders: - methylPREDNISolone acetate (DEPO-Medrol) injection 80 mg Rheumatoid arthritis of multiple sites without rheumatoid factor (HCC) (Chronic) - methylPREDNISolone acetate (DEPO-Medrol) injection 80 mg Encounter for long-term (current) use of high-risk medication - CBC WITH AUTO DIFF-QUEST - COMPREHENSIVE METABOLIC PANEL-QUEST - SEDIMENTATION RATE AUTOMATED-QUEST - VITAMIN D 25 HYDROXY-QUEST - C REACTIVE PROTEIN-QUEST - COMPLEMENT COMP C3 & C4-QUEST - URINALYSIS, COMPLETE WITH REFLEX TO CULTURE-QUEST - PROTEIN/CREATININE RATIO URINE - DNA (DS) ANTIBODY-QUEST - QUANTIFERON(R)-TB GOLD-QUEST Vitamin D deficiency - VITAMIN D 25 HYDROXY-QUEST Immunosuppressed status (Chronic) Swelling of both wrists Return in about 3 months (around 10/16/2024). * Lula Gamboa MA - 07/16/2024 4:00 PM EDT Depo Medrol injection 80mg IM in left upper gluteus muscle. Pt tolerated well. documented in this encounter Plan of Treatment Upcoming Encounters Date Type Department Care Team (Late st Contact Info) Description 08/25/2024 4:45 PM EDT Office Visit [facility] [address] [address] Tayla Lam MD [address] [address] 09/01/2024 3:15 PM EDT Office Visit [facility] [address] [place] [address] 10/22/2024 3:30 PM EDT Office Visit [facility] [address] [place] [address] Selena Gray MD [address] [place] [address] 11/25/2024 9:00 AM EDT Office Visit [facility] [address] [address] Lyle Salgado MD [address] [place] [address] Scheduled Orders Name Type Priority Associated Diagnoses Orde r Schedule COMPLEMENT COMP C3 & C4-QUEST Lab Routine Encounter for long-term (current) use of high-risk medication Ordered: 07/16/2024 PROTEIN/CREATININE RATIO URINE Lab Routine Encounter for long-term (current) use of high-risk medication Ordered: 07/16/2024 QUANTIFERON(R)-TB GOLD-QUEST Lab Routine Encounter for long-term (current) use of high-risk medication Ordered: 07/16/2024 documented as of this encounter Goals Goal Patient Goal Type Associated Problems Recent Progress Patient-Stated? Author Blood Pressure < 140/90 Blood Pressure 120/70(2024 4:16 PM EDT) No Marybel Singh RMA Maintain a healthy diet, exercise regularly and maintain an ideal body weight General No Christina Newton APRN Stay Tobacco Free Lifestyle No Christina Newton APRN documented as of this encounter Procedures Procedure Name Priority Date/Time Associated Diagnosis Comments REFLEXIVE URINE CULTURE Routine 07/22/2024 8:05 AM EDT DNA (DS) ANTIBODY-QUEST Routine 07/22/2024 8:05 AM EDT Encounter for long-term (current) use of high-risk medication VITAMIN D 25 HYDROXY-QUEST Routine 07/22/2024 8:05 AM EDT Encounter for long-term (current) use of high-risk medication Vitamin D deficiency URINE CULTURE-QUEST Routine 07/22/2024 8 :05 AM EDT URINALYSIS, COMPLETE WITH REFLEX TO CULTURE-QUEST Routine 07/22/2024 8:05 AM EDT Encounter for long-term (current) use of high-risk medication SEDIMENTATION RATE AUTOMATED-QUEST Routine 07/22/2024 8:05 AM EDT Encounter for long-term (current) use of high-risk medication C REACTIVE PROTEIN-QUEST Routine 07/22/2024 8:05 AM EDT Encounter for long-term (current) use of high-risk medication COMPREHENSIVE METABOLIC PANEL-QUEST Routine 07/22/2024 8:05 AM EDT Encounter for long-term (current) use of high-risk medication COMPLEMENT COMPONENT [id number] Routine 07/22/2024 8:05 AM EDT COMPLEMENT COMPONENT [id number]-XNAIL Routine 07/22/2024 8:05 AM EDT CBC WITH AUTO DIFF-QUEST Routine 07/22/2024 8:05 AM EDT Encounter for long-term (current) use of high-risk medication QUANTIFERON(R)-TB GOLD PLUS, 1-QUEST Routine 07/22/2024 8:05 AM EDT documented in this encounter Results * URINE CULTURE-QUEST (07/22/2024 8:05 AM EDT) Urine Culture SEE NOTE [facility] Comment: CULTURE, URINE, ROUTINE Micro Number: [id number] Test Status: Final Specimen Source: Urine Specimen Quality: Adequate Result: Mixed genital sola isolated. These superficial bacteria are not indicative of a urinary tract infection. No further organism identification is warranted on this specimen. If clinically indicated, recollect clean-catch, mid-stream urine and transfer immediately to Urine Culture Transport Tube. 07/22/2024 8:05 AM EDT 07/22/2024 8:05 AM EDT us Selena Gray MD [facility]INE ORDERABLES Final Res ult [facility] [address] [place] [address] * REFLEXIVE URINE CULTURE (07/22/2024 8:05 AM EDT) REFLEXIVE URINE CULTURE [facility] Comment:CULTURE INDICATED - RESULTS TO FOLLOW 07/22/2024 8:05 AM EDT 07/22/2024 8:05 AM EDT Selena Gray MD [facility]-URINE ORDERABLES Final Res ult Performing Organization Address City/[facility]/ZIP Co de Phone Number [facility] [address] [place] [address] * QUANTIFERON(R)-TB GOLD PLUS, 1-QUEST (07/22/2024 8:05 AM EDT) [facility] QUANTIFERON(R)-T B GOLD PLUS, 1 TUBE NEGATIVE NEGATIVE [facility] Comment: Negative test result. M. tuberculosis complex infection unlikely. NIL 0.03 IU/mL [facility] Mitogen 7.87 IU/mL [facility] TB1-NIL <0.00 IU/mL [facility] TB2-NIL <0.00 IU/mL [facility] Comment: The Nil tube value reflects the background interferon gamma immune response of the patient's blood sample. This value has been subtracted from the patient's displayed TB and Mitogen results. Lower than expected results with the Mitogen tube prevent false-negative Quantiferon readings by detecting a patient with a potential immune suppressive condition and/or suboptimal pre-analytical specimen handling. The TB1 Antigen tube is coated with the M. tuberculosis-specific antigens designed to elicit responses from TB antigen primed CD4+ helper T-lymphocytes. The TB2 Antigen tube is coated with the M. tuberculosis-specific antigens designed to elicit responses from TB antigen primed CD4+ helper and CD8+ cytotoxic T-lymphocytes. For additional information, please refer to https://education.Grass[employer]!.HyperQuest/faq/JXS246 (This link is being provided for informational/ educational purposes only.) 07/22/2024 8:05 AM EDT 07/22/2024 8:05 AM EDT Selena Gray MD [facility]-IMMUNOLOGY ORDERABLES Yuly l Result [facility] [address] [place] [address] * COMPLEMENT COMPONENT B2F-MYERO (07/22/2024 8:05 AM EDT) Complement Component C4C 28 15 - 57 mg/dL [facility] 07/22/2024 8:05 AM EDT 07/22/2024 8:05 AM EDT Selena Gray MD [facility]-IMMUNOLOGY ORDERABLES Yuly l Result Performing Organization Address City/[facility]/ZIP Co de Phone Number [facility] [address] [place] [address] * (ABNORMAL) COMPLEMENT COMPONENT [id number] (07/22/2024 8:05 AM EDT) COMPLEMENT COMPONENT C3C 206(H) 83 - 193 mg/dL [facility] 07/22/2024 8:05 AM EDT 07/22/2024 8:05 AM EDT Selena Gray MD [facility]-IMMUNOLOGY ORDERABLES Yuly l Result Performing Organization Address [facility] Co de Phone Number [facility] [address] [place] [address] * DNA (DS) ANTIBODY-QUEST (07/22/2024 8:05 AM EDT) DNA Ab DS <1 IU/mL [facility] Comment: IU/mL Interpretation < or = 4 Negative 5-9 Indeterminate > or = 10 Positive 07/22/2024 8:05 AM EDT 07/22/2024 8:05 AM EDT Selena Gray MD [facility]-IMMUNOLOGY ORDERABLES Yuly l Result Performing Organization Address City/[facility] Co de Phone Number [facility] [address] [place] [address] * (ABNORMAL) URINALYSIS, COMPLETE WITH REFLEX TO CULTURE-QUEST (07/22/2024 8:05 AM EDT) Color YELLOW YELLOW [facility] Appearance CLEAR CLEAR [facility] UA Spec Grav 1.015 1.001 - 1.035 [facility] pH, Urine 7.0 5.0 - 8.0 [facility] Glucose, Urine NEGATIVE NEGATIVE [facility] UA Bili NEGATIVE NEGATIVE [facility] UA Ketones NEGATIVE NEGATIVE [facility] UA Blood NEGATIVE NEGATIVE [facility] Urine Protein NEGATIVE NEGATIVE [facility] UA Nitrite NEGATIVE NEGATIVE [facility] UA Leuk Est TRACE(A) NEGATIVE [facility] UA WBC 0-5 < OR = 5 /HPF [facility] UA RBC 0-2 < OR = 2 /HPF [facility] Squam Epithel, UA 10-20(A) < OR = 5 /HPF [facility] UA Bacteria NONE SEEN NONE SEEN /HPF [facility] Hyaline Casts, UA NONE SEEN NONE SEEN /LPF [facility] Service Comment [facility] Comment: This urine was analyzed for the presence of WBC, RBC, bacteria, casts, and other formed elements. Only those elements seen were reported. 07/22/2024 8:05 AM EDT 07/22/2024 8:05 AM EDT Selean Gray MD [facility]-MICROBIOLOGY ORDERABLES Fi nal Result [facility] [address] [place] [address] * (ABNORMAL) C REACTIVE PROTEIN-QUEST (07/22/2024 8:05 AM EDT) Pathologist [facility] CRP 9.6(H) <8.0 mg/L [facility] 07/22/2024 8:05 AM EDT 07/22/2024 8:05 AM EDT Selena Gray MD [facility]-CHEMISTRY ORDERABLES Final Result [facility] [address] [place] [address] * VITAMIN D 25 HYDROXY-QUEST (07/22/2024 8:05 AM EDT) VIT D 25 OH 70 30 - 100 ng/mL [facility] Comment: Vitamin D Status 25-OH Vitamin D: Deficiency: <20 ng/mL Insufficiency: 20 - 29 ng/mL Optimal: > or = 30 ng/mL For 25-OH Vitamin D testing on patients on D2-supplementation and patients for whom quantitation of D2 and D3 fractions is required, the QuestAssureD(TM) 25-[place] VIT D, (D2,D3), LC/MS/MS is recommended: order code [id number] (patients >2yrs). See Note 1 Note 1 For additional information, please refer to http://education.[employer]/faq/SWX410 (This link is being provided for informational/ educational purposes only.) 07/22/2024 8:05 AM EDT 07/22/2024 8:05 AM EDT Selena Gray MD QUEST-CHEMISTRY ORDERABLES Final Result Performing Organization Address [facility]/ZIP Co de Phone Number QUEST [facility] [address] [place] [address] * SEDIMENTATION RATE AUTOMATED-QUEST (07/22/2024 8:05 AM EDT) Sed Rate 17 < OR = 30 mm/h [facility] 07/22/2024 8:05 AM EDT 07/22/2024 8:05 AM EDT Selena Gray MD QUEST-HEMATOLOGY ORDERABLES Yuly l Result Performing Organization Address City/[facility]/ZIP Co de Phone Number QUEST [facility] [address] [place] [address] * COMPREHENSIVE METABOLIC PANEL-QUEST (07/22/2024 8:05 AM EDT) Glucose 87 65 - 99 mg/dL [facility] Comment: Fasting reference interval BUN 10 7 - 25 mg/dL [facility] Creatinine 0.57 0.50 - 1.03 mg/dL [facility] EGFR 109 > OR = 60 mL/min/1.7 3m2 [facility] BUN/Creatinine Ratio SEE NOTE: (calc) [facility] Comment: Not Reported: BUN and Creatinine are within reference range. Sodium 136 135 - 146 mmol/L [facility] Potassium 4.6 3.5 - 5.3 mmol/L [facility] Chloride 100 98 - 110 mmol/L [facility] CO2 26 20 - 32 mmol/L [facility] Calcium 8.9 8.6 - 10.4 mg/dL [facility] Protein, Total 6.4 6.1 - 8.1 g/dL [facility] Albumin 3.6 3.6 - 5.1 g/dL [facility] Globulin 2.8 1.9 - 3.7 g/dL (calc) [facility] Albumin/Globuli n Ratio 1.3 1.0 - 2.5 (calc) [facility] Total Bilirubin 0.2 0.2 - 1.2 mg/dL [facility] Alk Phos 58 37 - 153 U/L [facility] AST 12 10 - 35 U/L [facility] ALT 8 6 - 29 U/L [facility] 07/22/2024 8:05 AM EDT 07/22/2024 8:05 AM EDT us Selena Gray MD QUEST-CHEMISTRY ORDERABLES Final Result QUEST [facility] [address] [place] [address] * CBC WITH AUTO DIFF-QUEST (07/22/2024 8:05 AM EDT) Pathologist [facility] WBC 9.8 3.8 - 10.8 Thousand/u L [facility] RBC 4.17 3.80 - 5.10 Million/uL [facility] Hemoglobin 12.2 11.7 - 15.5 g/dL [facility] Hematocrit 37.6 35.0 - 45.0 % [facility] MCV 90.2 80.0 - 100.0 fL [facility] MCH 29.3 27.0 - 33.0 pg [facility] MCHC 32.4 32.0 - 36.0 g/dL [facility] Comment: For adults, a slight decrease in the calculated MCHC value (in the range of 30 to 32 g/dL) is most likely not clinically significant; however, it should be interpreted with caution in correlation with other red cell parameters and the patient's clinical condition. RDW 13.3 11.0 - 15.0 % [facility] Platelets 327 140 - 400 Thousand/u L [facility] MPV 10.2 7.5 - 12.5 fL [facility] Neut# 6,331 1,500 - 7,800 cells/uL [facility] Lymph# 2,342 850 - 3,900 cells/uL [facility] Monocytes(Absolu te) 813 200 - 950 cells/uL [facility] Eos 235 15 - 500 cells/uL [facility] Baso# 78 0 - 200 cells/uL [facility] Neut Percent 64.6 % [facility] Lymph Percent 23.9 % [facility] Monocytes 8.3 % [facility] Eos Percent 2.4 % [facility] Baso Percent 0.8 % [facility] 07/22/2024 8:05 AM EDT 07/22/2024 8:05 AM EDT Selena HOYT-HEMATOLOGY ORDERABLES Yuly alarcon Result QUEST [facility] [address] [place] [address] documented in this encounter Visit Diagnoses Diagnosis Systemic lupus erythematosus, unspecified SLE type, unspecified organ involvement status (HCC)- Primary Rheumatoid arthritis of multiple sites without rheumatoid factor (HCC) Rheumatoid arthritis Encounter for long-term (current) use of high-risk medication Encounter for long-term (current) use of other medications Vitamin D deficiency Unspecified vitamin D deficiency Immunosuppressed status Unspecified disorder of immune mechanism Swelling of both wrists documented in this encounter Administered Medications Inactive Administered Medications - up to 1 most recent administrations Medication Order MAR Action Action Date Dose Rate Site methylPREDNISolone acetate (DEPO-Medrol) injection 80 mg 80 mg, Intramuscular, ONCE, 1 dose, On Tamia 07/16/24 at 1645, Dx: 1. Systemic lupus erythematosus, unspecified SLE type, unspecified organ involvement status (HCC) 2. Rheumatoid arthritis of multiple sites without rheumatoid factor (HCC)Indications:Systemic lupus erythematosus, unspecified SLE type, unspecified organ involvement status (HCC),Rheumatoid arthritis of multiple sites without rheumatoid factor (HCC) Given 07/16/2024 4:46 PM EDT 80 mg Left upper gluteus documented in this encounter Orders Medications Ordered That Tahir ht Not Have Been Administered Count Last Ordered Date First Ordered Date methylPREDNISolone acetate ( DEPO-Medrol) injection 80 mg 1 07/16/2024 documented in this encounter Care Teams Web Art Director Relationship Specialty Start Date End Date Maria G Laurent APRN [facility] [address] [place] [address] PCP - General Nurse Practitioner 08/20/19 Jonah Eng MD [address] [place] [address] Physician Psychiatry & Neurology-Clinical Neurophysiology 09/16/13 Jaren Duran MD [address] [place] [address] Internal Medicine-Cardiovascular Disease 04/22/14 Selena Gray MD [address] [place] [address] Internal Medicine-Rheumatology 04/30/22 documented as of this encounter
--- OUTSIDE RECORDS SUMMARY | 2024-08-04 15:45 | XMS_ITS | Encounter Summary ---
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 Procedures AK INJ ANIFROLUMAB-FNIA 1MG Selena Gray MD [address] [place] [address] Phone: tel: fax: [facility] [address] [place] [address] Referral ID Status Reason Start Date Expiration Date V isits Requested Visits Authorized [id number] Authorized 10/02/2023 99 99 Encounter Details Date Type Department Care Team (Latest Contact Info) Description 08/04/2024 3:45 PM EDT Office Visit [facility] [place] [address] [place] [address] Encounter for long-term (current) use of high-risk [...] Sign Reading Time Taken Comments Blood Pressure 120/70 08/04/2024 4:16 PM EDT Pulse 70 08/04/2024 4:16 PM EDT Temperature 36.4 C (97.5 F) 08/04/2024 3:52 PM EDT Respiratory Rate 16 08/04/2024 4:16 PM EDT Oxygen Saturation 96% 08/04/2024 4:16 PM EDT Inhaled Oxygen Concentration - - Weight - - Height - - Body Mass Index - - documented in this encounter Progress Notes * Pura Cui RN - 08/04/2024 3:45 PM EDT Pt discharged stable Saphnelo 300mg IV flushed with NS documented in this encounter Plan of Treatment Upcoming Encounters Date Type Department Care Team (Late st Contact Info) Description 08/25/2024 4:45 PM EDT [facility] [address] [place] [address] Tayla Lam MD [address] [facility] [address] [place] [address] 09/01/2024 3:15 PM EDT [facility] [address] [place] [address] 10/22/2024 3:30 PM EDT Office Visit [facility] [address] [place] [address] Selena Gray MD [address] [place] [address] 11/25/2024 9:00 AM EDT Office Visit [facility] [address] [place] [phone] Lyle Salgado MD [address] [place], [place] [address] documented as of this encounter Goals Goal [...] 300 mg, Intravenous, ONCE, 1 dose, On Sat08/04/24 at 1600, Administer over 30 Minutes, Administer with 0.22 micron filter, Dx: 1. Encounter for long-term (current) use of high-risk medication 2. Systemic lupus erythematosus, unspecified SLE type, unspecified organ involvement status (HCC)Indications:Encounter for long-term (current) use of high-risk medication,Systemic lupus erythematosus, unspecified SLE type, unspecified organ involvement status (HCC) IV Started 08/04/2024 3:54 PM EDT 300 mg 200 mL /hr documented in this encounter Orders Medications Ordered That Tahir ht Not Have Been Administered Count Last Ordered Date First Ordered Date anifrolumab-fnia (SAPHNELO) 300 mg in sodium chloride 0.9 % 100 mL infusion 1 08/04/2024 documented in this encounter Care Teams Horse Race Timer Relationship Specialty Start Date End Date Maria G Laurent APRN 1210 [facility] [address] [place] [address] PCP - General Nurse Practitioner 08/20/19 Jonah Eng MD [address] [place] [address] Physician Psychiatry & Neurology-Clinical Neurophysiology 09/16/13 Jaren Duran MD [address] [place] [address] Internal Medicine-Cardiovascular Disease 04/22/14 Selena Gray MD [address] [place] [address] Internal Medicine-Rheumatology 04/30/22 documented as of this encounter
--- OUTSIDE RECORDS SUMMARY | 2024-08-11 15:15 | XMS_ITS | Encounter Summary ---
Author Organization [place] [address] Care Team Providers Care Manager Mechanical Maintenance Name Role Phone Jonah Eng MD Unavailable Jaren Duran MD Unavailable Unavailable Maria G Laurent APRN Primary Care Provider [phone] Selena Gray MD Unavailable Reason for Visit * Reason Onset Date Comments Medication Refill Schedule Appointment 08/08/2024 Encounter Details Date Type Department Care Team (Late st Contact Info) Description 08/08/2024 Refill [facility] [place] [address] [address] Tayla Lam MD [address] [address] Medication Refill; Schedule Appointment Social History Tobacco Use Types Packs/Day Years [...] TABLET BY MOUTH EVERY DAY 30 Tablet 08/11/2024 documented in this encounter Miscellaneous Notes * Addendum Note - Rere Cook RN - 08/11/2024 11:31 AM EDTAddended by: RERE COOK on: 08/11/2024 11:31 AM Modules accepted: Orders * Telephone Encounter - Inge Curry - 08/11/2024 6:48 AM EDT sent to schedule appointment with * Telephone Encounter - Nannette Ventura RMA - 08/11/2024 6:29 AM EDT Patient does not have a follow up appointment scheduled. Please schedule to complete refills. CON: 02/21/23 Due to be seen around: 08/22/23 * Telephone Encounter - Shaina Matos CPhT - 08/10/2024 3:54 PM EDT Levothyroxine 150 Patient has not had an office visit for any reason in >13 months (395 days). Lab tests needed, if any: Abnormal TSH and TSH (12 months) Defer to office. documented in this encounter Plan of Treatment Upcoming Encounters Date Type Department Care Team (Late st Contact Info) Description 08/25/2024 4:45 PM EDT [facility] [address] [facility] [address] [place] [address] Tayla Lam MD [address] [address] 09/01/2024 3:15 PM EDT Office Visit [facility] [address] [place] [address] 10/22/2024 3:30 PM EDT Office Visit [facility] [address] [place] [address] Selena Gray MD [address] [place] [address] 11/25/2024 9:00 AM EDT Office Visit [facility] [address] [address] Lyle Salgado MD [address] [place] [address] Scheduled Orders Name Type Priority Associated Diagnoses Orde r Schedule HEMOGLOBIN A1C Lab Routine Secondary hypothyroidism 1 Occurrences starting 08/11/2024 until 08/11/2025 BASIC METABOLIC PANEL Lab Routine Secondary hypothyroidism Other iron deficiency anemia 1 Occurrences starting 08/11/2024 until 08/11/2025 VITAMIN D 25 HYDROXY Lab Routine Vitamin B6 deficiency 1 Occurrences starting 08/11/2024 until 08/11/2025 VITAMIN B12 LEVEL Lab Routine B12 deficiency 1 Occurrences starting 08/11/2024 until 08/11/2025 THYROID STIMULATING HORMONE Lab Routine Secondary hypothyroidism 1 Occurrences starting 08/11/2024 until 08/11/2025 T4, FREE (THYROXINE) Lab Routine Secondary hypothyroidism 1 Occurrences starting 08/11/2024 until 08/11/2025 VITAMIN B6 (PYRIDOXINE) -REF LAB Lab Routine Vitamin B6 deficiency 1 Occurrences starting 08/11/2024 until 08/11/2025 IRON+TIBC Lab Routine Other iron deficiency anemia 1 Occurrences starting 08/11/2024 until 08/11/2025 FERRITIN Lab Routine Other iron deficiency anemia 1 Occurrences starting 08/11/2024 until 08/11/2025 documented as of this encounter Goals Goal Patient Goal Type Associated Problems Recent Progress Patient-Stated? Author Blood Pressure < 140/90 Blood Pressure 120/70(2024 4:16 PM EDT) No Marybel Singh, RMKelly Maintain a healthy diet, exercise regularly and maintain an ideal body weight General No Christina Newton APRN Stay Tobacco Free Lifestyle Christina Stevenson APRN documented as of this encounter Visit Diagnoses Diagnosis Vitamin B6 deficiency- Primary Secondary hypothyroidism Other specified acquired hypothyroidism Vitamin D deficiency Unspecified vitamin D deficiency Other iron deficiency anemia B12 deficiency Other B-complex deficiencies documented in this encounter Discontinued Medications Medication Sig Discontinue Reason Start Date End Da te LEVOthyroxine (SYNTHROID) 150 mcg Oral TabletIndications:Secondar y hypothyroidism TAKE 1 TABLET BY MOUTH EVERY DAY 07/15/2024 08/11/2024 documented as of this encounter Care Teams Manager Mechanical Maintenance Relationship Specialty Start Date End Date Maria G Laurent APRN 1210 [facility] [address] [facility] 2[address] [place] [address] PCP - General Nurse Practitioner 08/20/19 Jonah Eng MD [address] [place] [address] Physician Psychiatry & Neurology-Clinical Neurophysiology 09/16/13 Jaren Duran MD [address] [place] [address] Internal Medicine-Cardiovascular Disease 04/22/14 Selena Gray MD [address] [place] [address] Internal Medicine-Rheumatology 04/30/22 documented as of this encounter
--- OUTSIDE RECORDS SUMMARY | 2024-08-11 15:15 | XMS_ITS | Encounter Summary ---
Author Organization [place] [address] Care Team Providers Care Call Center Agent Name Role Phone Jonah Eng MD Unavailable Jaren Duran MD Unavailable Unavailable Maria G Laurent APRN Primary Care Provider [phone] Selena Gray MD Unavailable Reason for Visit * Reason Onset Date Comments Medication Refill 07/15/2024 Encounter Details Date Type Department Care Team (Late st Contact Info) Description 07/15/2024 Refill [facility] Physicians [facility] [place] [address] [address] Tayla Lam MD [address] [address] Medication Refill Social History Tobacco [...] Description 08/25/2024 4:45 PM EDT [facility] [address] [place] [phone] Tayla Lam MD [address] [address] 09/01/2024 3:15 PM EDT Office Visit [facility] [address] [place] [address] 10/22/2024 3:30 PM EDT Office Visit [facility] [address] [place] [address] Selena Gray MD [address] [place] [address] 11/25/2024 9:00 AM EDT Office Visit [facility] [address] [phone] Lyle Salgado MD [address] [place] [address] documented as of this encounter Goals Goal Patient Goal Type Associated Problems Recent Progress Patient-Stated? Author Blood Pressure < 140/90 Blood Pressure 120/70(2024 4:16 PM EDT) No Marybel Singh, CALI Maintain [...] documented as of this encounter Care Teams Call Center Agent Relationship Specialty Start Date End Date Maria G Laurent APRN 1210 [facility] [address] [place] [address] PCP - General Nurse Practitioner 08/20/19 Jonah Eng MD [address] [place] [address] Physician Psychiatry & Neurology-Clinical Neurophysiology 09/16/13 Jaren Duran MD [address] [place] [address] Internal Medicine-Cardiovascular Disease 04/22/14 Selena Gray MD [address] [place] [address] Internal Medicine-Rheumatology 04/30/22 documented as of this encounter
--- OUTSIDE RECORDS SUMMARY | 2024-08-11 15:15 | XMS_ITS | Encounter Summary ---
Author Organization [place] [address] Care Team Providers Care News Video Editor Name Role Phone Jonah Eng MD Unavailable Jaren Duran MD Unavailable Unavailable Maria G Laurent APRN Primary Care Provider [phone] Selena Gray MD Unavailable Reason for Visit * Reason Comments Medication Refill Encounter Details Date Type Department Care Team (Late st Contact Info) Description 07/15/2024 Refill [facility] Physicians [facility] [address] [address] Tayla Lam MD [address] [address] Medication Refill Social History Tobacco [...] Description 08/25/2024 4:45 PM EDT Office Visit [facility] [address] [phone] Tayla Lam MD [address] [phone] 09/01/2024 3:15 PM EDT Office Visit [facility] [address] [place] [address] 10/22/2024 3:30 PM EDT [facility] [address] [place] [address] Selena Gray MD [address] [place] [address] 11/25/2024 9:00 AM EDT Office Visit [facility] [address] [address] Lyle Salgado MD [address] [place] [address] documented as of this encounter Goals Goal [...] documented as of this encounter Care Teams News Video Editor Relationship Specialty Start Date End Date Maria G Laurent APRN [facility] [address] [phone] PCP - General Nurse Practitioner 08/20/19 Jonah Eng MD [address] [place] [address] Physician Psychiatry & Neurology-Clinical Neurophysiology 09/16/13 Jaren Duran MD [address] [address] Internal Medicine-Cardiovascular Disease 04/22/14 [place] [address] [place] [phone] Internal Medicine-Rheumatology 04/30/22 documented as of this encounter
--- OUTSIDE RECORDS SUMMARY | 2024-08-11 15:15 | XMS_ITS | Encounter Summary ---
Author Organization [place] [address] Care Team Providers Care Steeping Press Operator Name Role Phone Jonah Eng MD Unavailable Jaren Duran MD Unavailable Unavailable Shawn Ramirez MD Primary Care Provider [phone] Maria G Laurent APRN Primary Care Provider [phone] Selena Gray MD Unavailable Encounter Details Date Type Department Care Team (Late st Contact Info) Description 06/14/2014 Orders Only [facility] 711 [facility] [address] [place] [address] Megan Carlson, POLYMER TESTER [address] [place] [address] Social History Tobacco Use Types [...] Description 08/25/2024 4:45 PM EDT Office Visit [facility] [address] [phone] Tayla Lam MD [address] [address] 09/01/2024 3:15 PM EDT Office Visit [facility] [address] [place] [address] 10/22/2024 3:30 PM EDT Office Visit [facility] [address] [place] [address] Selena Gray MD [address] [place] [address] 11/25/2024 9:00 AM EDT Office Visit [facility] [place] [address] [place] [address] Lyle Salgado MD [address] [place] [address] documented as of this encounter Procedures Procedure Name Priority Date/Time Associated Diagnosis Comments ELECTROPHYSIOLOGY OR IMPLANT PROCEDURE LOG Routine 06/14/2014 11:36 AM EDT documented in this encounter Results * ELECTROPHYSIOLOGY OR IMPLANT PROCEDURE LOG (06/14/2014 11:36 AM EDT) 06/14/2014 11:3 6 AM EDT us Megan Carlson POLYMER TESTER CARDIAC CATH ORDERABLES Ed ited Result - Final [facility] 1 [place] [address] documented in this encounter Visit Diagnoses Not on filedocumented in this encounter Care Teams Steeping Press Operator Relationship Specialty Start Date End Date Shawn Ramirez MD [address] [place] [phone] PCP - General Family Medicine 05/11/14 07/07/18 Maria G Laurent APRN 1210 [facility] [address] [place] [address] PCP - General Nurse Practitioner 08/20/19 Jonah Eng MD [address] [place] [address] Physician Psychiatry & Neurology-Clinical Neurophysiology 09/16/13 Jaren Duran MD [address] [place] [address] Internal Medicine-Cardiovascular Disease 04/22/14 Selena Gray MD [address] [place] [address] Internal Medicine-Rheumatology 04/30/22 documented as of this encounter
--- OUTSIDE RECORDS SUMMARY | 2024-08-11 15:15 | XMS_ITS | Clinical Summary ---
Author Organization [facility] Address [address] [place] [address] Phone Care Team Providers Care Pleater Hand Name Role Phone Jonah Eng MD Unavailable Jaren Duran MD Unavailable Unavailable Maria G Laurent APRN Primary Care Provider [phone] Selena Gray MD Unavailable Allergies Active Allergy [...] MOUTH EVERY DAY 90 Capsule 025 Active cyanocobalamin 1,000 mcg/mL Inj SolutionIndicatio ns:B12 deficiency Inject 1 mL into the muscle every 14 days. 6 mL 1 025 Active LEVOthyroxine (SYNTHROID) 150 mcg Oral TabletIndications :Secondary hypothyroidism TAKE 1 TABLET BY MOUTH EVERY DAY 30 Tablet 025 Active LEVOthyroxine (SYNTHROID) 150 mcg Oral TabletIndications :Secondary hypothyroidism TAKE 1 TABLET BY MOUTH EVERY DAY 90 Tablet 1 024 2024 Discontinued LEVOthyroxine (SYNTHROID) 150 mcg Oral TabletIndications :Secondary hypothyroidism TAKE 1 TABLET BY MOUTH EVERY DAY 30 Tablet 025 2024 Discontinued Hospital, Clinic, or Other Facility [...] 11/26/19 24 Overview (11/26/2023): Was mild in 2017 more moderate in 2023. Patient denies any [...] Encounters Date Type Department Care Team Description 08/08/2024 Refill [facility] [address] [address] Tayla Lam MD Medication Refill; Schedule Appointment 08/04/2024 3:45 PM EDT Office Visit [facility] [address] [place] [address] Encounter for long-term (current) use of high-risk medication (Primary Dx); Systemic lupus erythematosus, unspecified SLE type, unspecified organ involvement status (HCC) 07/16/2024 4:00 PM EDT Office Visit [facility] [address] [place] [address] Selena Gray MD Systemic lupus erythematosus, unspecified SLE type, unspecified organ involvement status (HCC) (Primary Dx); Rheumatoid arthritis of multiple sites without rheumatoid factor (HCC); Encounter for long-term (current) use of high-risk medication; Vitamin D deficiency; Immunosuppressed status; Swelling of both wrists 07/15/2024 Refill [facility] [address] [address] Tayla Lam MD Medication Refill 07/15/2024 Refill [facility] [address] [address] Tayla Lam MD Medication Refill 07/02/2024 3:30 PM EDT [facility] [address] [place] [address] Encounter for long-term (current) use of high-risk medication (Primary Dx); Systemic lupus erythematosus, unspecified SLE type, unspecified organ involvement status (HCC) 06/07/2024 Refill [facility] [address] [place] [address] Selena Gray MD Medication Refill 05/13/2024 Refill [facility] [address] [place] [address] Selena Gray MD Medication Refill from Last [...] Hypertension Headache(784.0) occ migranes, se es Dr/ Brown Neuro Arthritis rhumatoid SVT (supraventricular tachycardia) 06/14/2014 [...] Description 08/25/2024 4:45 PM EDT Office Visit [facility] [address] [facility] [address] [place] [address] Tayla Lam MD [address] [facility] [address] [place] [address] 09/01/2024 3:15 PM EDT Office Visit [facility] [address] [place] [address] 10/22/2024 3:30 PM EDT Office Visit [facility] [address] [place] [address] Selena Gray MD [address] [place] [address] 11/25/2024 9:00 AM EDT Office Visit [facility] [address] [place] [id number] Lyle Salgado MD [facility] [place] [address] Health Maintenance Due Date Last [...] 11/21/2023 09/26/2023, 09/03/2023 Breast Cancer Screening 05/24/2024 05/25/19 23, 10/09/2013, 10/08/2012, Additional history exists Influenza Vaccine (#1) 2024 , 12/26/2021, 12/11/2019, Additional history exists Colon Cancer Screening 12/13/2025 Colonoscopy 12/13/2025 12/14/2015, 03/2015, 12/14/2015, Additional history exists Meningococcal B Vaccine Aged Out No l onger eligible based on patient's age to complete this topic Goals Goal Patient Goal Type Associated Problems Recent Progress Patient-Stated? Author Blood Pressure < 140/90 Blood Pressure 120/70(2024 4:16 PM EDT) No Marybel Singh, RMA Maintain a healthy diet, exercise regularly and maintain an ideal body weight General No Christina Newton APRN Stay Tobacco Free Lifestyle No Christina Newton APRN Procedures Procedure Name Priority Date/Time Associated Diagnosis Comments URINE CULTURE-QUEST Routine 07/22/2024 8 :05 AM EDT REFLEXIVE URINE CULTURE Routine 07/22/2024 8:05 AM EDT QUANTIFERON(R)-TB GOLD PLUS, 1-QUEST Routine 07/22/2024 8:05 AM EDT COMPLEMENT COMPONENT H5E-MOQYS Routine 07/22/2024 8:05 AM EDT COMPLEMENT COMPONENT P9W-PTZQE Routine 07/22/2024 8:05 AM EDT DNA (DS) ANTIBODY-QUEST Routine 07/22/2024 8:05 AM EDT Encounter for long-term (current) use of high-risk medication C REACTIVE PROTEIN-QUEST Routine 07/22/2024 8:05 AM EDT Encounter for long-term (current) use of high-risk medication VITAMIN D 25 HYDROXY-QUEST Routine 07/22/2024 8:05 AM EDT Encounter for long-term (current) use of high-risk medication Vitamin D deficiency SEDIMENTATION RATE AUTOMATED-QUEST Routine 07/22/2024 8:05 AM [...] GMED EGD-COLONOSCOPY Routine 12/14/2015 7:20 AM EDT GAMING INVESTIGATOR CYTOLOGY REPORT Routine 10/06/2012 1 2:00 AM EDT from Last 3 Months or Most Recently Relevant to Health Maintenance Results * REFLEXIVE URINE CULTURE (07/22/2024 8:05 AM EDT) REFLEXIVE URINE CULTURE [facility] Comment:CULTURE INDICATED - RESULTS TO FOLLOW 07/22/2024 8:05 AM EDT 07/22/2024 8:05 AM EDT Selena Gray MD [facility]-URINE ORDERABLES Final Res ult [facility] [address] [place] [address] * DNA (DS) ANTIBODY-QUEST (07/22/2024 8:05 AM EDT) DNA Ab DS <1 IU/mL [facility] Comment: IU/mL Interpretation < or = 4 Negative 5-9 Indeterminate > or = 10 Positive 07/22/2024 8:05 AM EDT 07/22/2024 8:05 AM EDT Selena Gray MD [facility]-IMMUNOLOGY ORDERABLES Yuly l Result [facility] [address] [place] [address] * VITAMIN D 25 HYDROXY-QUEST (07/22/2024 8:05 AM EDT) VIT D 25 OH 70 30 - 100 ng/mL [facility] Comment: Vitamin D Status 25-OH Vitamin D: Deficiency: <20 ng/mL Insufficiency: 20 - 29 ng/mL Optimal: > or = 30 ng/mL For 25-OH Vitamin D testing on patients on D2-supplementation and patients for whom quantitation of D2 and D3 fractions is required, the QuestAssureD(TM) 25-OH VIT D, (D2,D3), LC/MS/MS is recommended: order code 14000 (patients >2yrs). See Note 1 Note 1 For additional information, please refer to http://education.Walkbase/faq/GQE273 (This link is being provided for informational/ educational purposes only.) 07/22/2024 8:05 AM EDT 07/22/2024 8:05 AM EDT Selena Gray MD [facility]-CHEMISTRY ORDERABLES Final Result Performing Organization Address [facility] Co de Phone Number [facility] [address] [place] [address] * URINE CULTURE-QUEST (07/22/2024 8:05 AM EDT) Urine Culture SEE NOTE [facility] Comment: CULTURE, URINE, ROUTINE Micro Number: [id number] Test Status: Final Specimen Source: Urine Specimen [...] ORDERABLES Final Res ult Performing Organization Address [facility] Co de Phone Number [facility] [address] [place] [address] * (ABNORMAL) URINALYSIS, COMPLETE WITH REFLEX TO [...] Gray MD [facility]-MICROBIOLOGY ORDERABLES Fi nal Result [facility] [address] [place] [address] * SEDIMENTATION RATE AUTOMATED-QUEST (07/22/2024 8:05 AM EDT) Pathologist [facility] Sed Rate 17 < OR = 30 mm/h [facility] 07/22/2024 8:05 AM EDT 07/22/2024 8:05 AM EDT Selena Gray MD [facility]-HEMATOLOGY ORDERABLES Yuly l Result [facility] [address] [place] [address] * (ABNORMAL) C REACTIVE PROTEIN-QUEST (07/22/2024 8:05 AM EDT) CRP 9.6(H) <8.0 mg/L [facility] 07/22/2024 8:05 AM EDT 07/22/2024 8:05 AM EDT Selena Gray MD [facility]-CHEMISTRY ORDERABLES Final Result Performing Organization Address City/[facility]/ZIP Co de Phone Number [facility] [address] [place] [address] * COMPREHENSIVE METABOLIC PANEL-QUEST (07/22/2024 8:05 AM [...] QUEST-CHEMISTRY ORDERABLES Final Result Performing Organization Address City/[facility]/ZIP Co de Phone Number [facility] [address] [place] [address] * COMPLEMENT COMPONENT E3D-DINYX (07/22/2024 8:05 AM EDT) Complement Component C4C 28 15 - 57 mg/dL [facility] 07/22/2024 8:05 AM EDT 07/22/2024 8:05 AM EDT Selena Gray MD [facility]-IMMUNOLOGY ORDERABLES Yuly l Result Performing Organization Address [facility] Co de Phone Number [facility] [address] [place] [address] * (ABNORMAL) COMPLEMENT COMPONENT A1F-ZQOND (07/22/2024 8:05 AM EDT) COMPLEMENT COMPONENT C3C 206(H) 83 - 193 mg/dL [facility] 07/22/2024 8:05 AM EDT 07/22/2024 8:05 AM EDT Selena Gray MD [facility]-IMMUNOLOGY ORDERABLES Yuly l Result Performing Organization Address City/[facility]/ZIP Co de Phone Number [facility] [address] [place] [address] * CBC WITH AUTO DIFF-QUEST (07/22/2024 8:05 AM EDT) Pathologist [facility] WBC 9.8 3.8 - 10.8 Thousand/u L [...] Gray MD [facility]ST-HEMATOLOGY ORDERABLES Yuly l Result [facility] [address] [place] [address] * QUANTIFERON(R)-TB GOLD PLUS, 1-QUEST (07/22/2024 8:05 AM EDT) QUANTIFERON(R)-T B GOLD PLUS, 1 TUBE NEGATIVE [...] T-lymphocytes. For additional information, please refer to https://education.Circle 1 Network.Magnetic/faq/NGL219 (This link is being provided for informational/ educational purposes only.) 07/22/2024 8:05 AM EDT 07/22/2024 8:05 AM EDT Selena Gray MD [facility]ST-IMMUNOLOGY ORDERABLES Yuly l Result QUEST [facility] [address] [facility] [place] [address] * MM MAMMO DIGITAL SVETLANA SCREEN BILAT (05/24/2022 8:06 AM EDT) Anatomical Region Laterality Modality Breast Bilateral Mammography 05/24/2022 8:56 AM EDT Impressions 05/24/2022 8:56 AM EDT Negative (MME-Nscyrbdf-0) ~ RECOMMENDATION: Routine screening mammogram in 1 [...] the next mammogram, in accordance with the [employer] and the Society of Breast Imaging recommendations. Narrative 05/24/2022 8:56 AM EDT Procedure:MM MAMMO DIGITAL SVETLANA SCREEN BILAT ~ Reason for exam: screening, asymptomatic. Z12.31-Encounter for screening mammogram for malignant neoplasm of qpauwa-KNH-21-CM ~ MM MAMMO DIGITAL SVETLANA SCREEN BILAT [...] for screening mammogram for malignant neoplasm of viysuq-FPW-89-CM ~ MM MAMMO DIGITAL SVETLANA SCREEN BILAT Bilateral CC and MLO view(s) were taken. There are scattered fibroglandular densities. Prior study comparison: Compared with prior studies the most recentbeing 10/09/13, 10/08/12 No mammographic evidence of malignancy. ~ IMPRESSION: Negative (IYW-Sdrdzoik-6) ~ RECOMMENDATION: Routine screening mammogram in 1 [...] the next mammogram, in accordance with the [employer] and the Society of Breast Imaging recommendations. Maria G Arias Mehran VBA PROGRAMMER IMG MAMMOGRAPHY ORDERABLES Fin al Result * GMED EGD-COLONOSCOPY (12/14/2015 7:20 AM EDT) 12/14/2015 7:20 AM EDT Narrative [facility] - 12/14/2015 7:[address] [facility] [place] [address] EGD-Colonoscopy Report Date: 12/14/2015 7:20 AM Patient Name: LUCILLE RICO Endoscopist(s): Brian Chisholm MD Gender: Female (age): 1970 (45) Referring Physician: Shawn Ramirez MD [address] [place] [address] (phone) (fax) Anesthesia Provider: Roge Mast CRNA (Nurse energy conservation director) Nurse(s): Galina العلي, RN (Pre-Procedure) Rose Hopper, RN, BSN (Intra-Procedure) Jeana Sam, RN, BSN (Post-Procedure) EGD Instrument(s): E-#8([id number]) Colonoscopy Instrument(s): C-5([id number]) ASA Class: P2 - 12/14/2015 6:56 AM [...] with IV sedation was administered by nurse energy conservation director/ anesthesiologist. Continuous pulse oximetry, heart rate and [...] Chisholm MD GI PROCEDURE ORDERABLES Final Result [facility] [address] [place] [address] * GAMING INVESTIGATOR CYTOLOGY REPORT (10/06/2012 12:00 AM EDT) Direct Care Staffer Cytology Report PATIENT NAME:ISREAL ARANGO Direct Care Staffer Cytology Report Accession Number Collected Date/Time Received Date/Time [id number] 10/06/12 00:00 EDT 10/07/12 05:01 EDT GY [...] confirmed before definitive therapy. Processed using the ThinPrep Knowledge Architect automated cytology screening device (JoyTunes). Design Architect: KEZIA REYNOSO 10/09/2012 Completed by: TIFFANY Lopez (Electronically signed by) 10/09/[address] [facility] 10/06/2012 us Anuradha Watkins MD PATHOLOGY ORDERABLES Final R esult [facility] [address] [place] [address] from Last 3 Months or Most Recently Relevant to Health Maintenance Insurance PPO Member Subscriber Plan / Payer ( fective 2009-Present) Name:Isreal Rico Relation to Subscriber:Self Name:Isreal Rico Payer ID:[id number] (NAIC) Group ID:[id number] Type:Not on file Address: [id number] PPO PPO Care Teams Pleater Hand Relationship Specialty Start Date End Date Maria G Laurent APRN [address] [facility] [address] [place] [address] PCP - General Nurse Practitioner 08/20/19 Jonah Eng MD [address] [place] [address] Physician Psychiatry & Neurology-Clinical Neurophysiology 09/16/13 Jaren Duran MD [address] [place] [address] Internal Medicine-Cardiovascular Disease 04/22/14 Selena Gray MD [address] [place] [address] Internal Medicine-Rheumatology 04/30/22
--- OUTSIDE RECORDS SUMMARY | 2024-08-11 15:15 | XMS_ITS | Encounter Summary ---
Author Organization [place] [address] Care Team Providers Care Card Tape Converter Operator Name Role Phone Jonah Eng MD Unavailable Jaren Duran MD Unavailable Unavailable Shawn Ramirez MD Primary Care Provider [phone] Maria G Laurent APRN Primary Care Provider [phone] Selena Gray MD Unavailable Encounter Details Date Type Department Care Team (Late st Contact Info) Description 12/20/2016 E-Visit [facility] [address] [place] [address] Shawn Ramirez MD [address] [place] [address] E-Visit Submission: Urinary Problems Social History [...] Description 08/25/2024 4:45 PM EDT Office Visit [facility] [address] [address] Tayla Lam MD [address] [address] 09/01/2024 3:15 PM EDT Office Visit [facility] [address] [place] [address] 10/22/2024 3:30 PM EDT [facility] [address] [place] [address] Selena Gray MD [address] [place] [address] 11/25/2024 9:00 AM EDT Office Visit [facility] [address] [address] Lyle [place] MD [address] [place] [address] documented as of this encounter Goals Goal [...] on filedocumented in this encounter Care Teams Card Tape Converter Operator Relationship Specialty Start Date End Date Shawn Ramirez MD [address] [place] [address] PCP - General Family Medicine 05/11/14 07/07/18 Maria G Laurent APRN [address] [facility] [address] [place] [address] PCP - General Nurse Practitioner 08/20/19 Jonah Eng MD [address] [place] [address] Physician Psychiatry & Neurology-Clinical Neurophysiology 09/16/13 Jaren Duran MD [address] [place] [address] Internal Medicine-Cardiovascular Disease 04/22/14 Selena Gray MD [address] [place] [address] Internal Medicine-Rheumatology 04/30/22 documented as of this encounter
--- NOTE | 2024-08-11 15:30 | CT_ITS ---
FINAL REPORT TECHNIQUE: Thin section axial images were obtained from the lung apices to the upper abdomen by computed tomography. Reformatted images were obtained and reviewed. This study was performed with techniques to keep radiation doses al low as reasonably achievable (ALARA). Individualized dose reduction techniques using automated exposure control or adjustment of mA and/or kV according to the patient's size were employed. CLINICAL HISTORY: lung cancer screening, former smoker, quit less than a year ago, smoked 1/2 pack - 1 pack per day x 35 yrs. lung cancer history in aunt. COMPARISON: None FINDINGS: CHEST CT LOW DOSE 54-year-old female, former smoker who quit 1 year ago, 32-yfhc-wmql history CTDI vol (mGy): 2.90 DLP (mGy-cm): 113.59 There is no axillary adenopathy. There is no mediastinal or hilar mass or adenopathy. The heart is normal in size. There is no pericardial or pleural effusion. There is scarring present in the lung apices. Lung window images demonstrate a 4 mm pleural-based nodule in the right posterior hemithorax, best seen on image #32 of series 4. Limited images of the upper abdomen are unremarkable. IMPRESSION: Lung-RADS category 2. Recommend 12 month follow up low dose chest CT. Reviewed, Interpreted and Dictated by Curtis Garcia MD Transcribed by Aurea Peoples Authenticated and [facility]
== END 2024-08-11 23:59 | disposition home or self-care (01) ==
LOC: RAD 15:13
PROVIDERS: PCP Nurse Practitioner; Visit Provider Nurse Practitioner
DX: J98.4 Other disorders of lung (principal); R91.8 Other nonspecific abnormal finding of lung field; Z12.2 Encounter for screening for malignant neoplasm of respiratory organs; Z87.891 Personal history of nicotine dependence
CPT/HCPCS: 71271

== ENCOUNTER 2024-11-17 10:00 | Outpatient (CLI) | payer BC, SELFPAY ==
--- OUTSIDE RECORDS SUMMARY | 2024-09-29 15:00 | XMS_ITS | Encounter Summary ---
Author Organization [facility] Address [address] [place] [address] Care Team Providers Care Seed Yeast Operator Name Role Phone Jonah Eng MD Unavailable Jaren Duran MD Unavailable Unavailable Maria G Laurent APRN Primary Care Provider [phone] Selena Gray MD Unavailable Reason for Visit * Oncology Medication Prior Authorization (Routine) - Authorized Specialty Diagnoses / Procedures Referred By Susanna means Referred To Contact Diagnoses Systemic lupus erythematosus, unspecified (HCC) Other longterm (current) drug therapy Procedures [place] INJ ANIFROLUMAB-FNIA 1MG Selena Gray MD [address] [place] [address] Phone: tel: fax: [facility] [address] [place] [address] Referral ID Status Reason Start Date Expiration Date V isits Requested Visits Authorized [id number] Authorized 10/02/2023 99 99 Encounter Details Date Type Department Care Team (Latest Contact Info) Description 09/29/2024 3:00 PM EDT Office Visit [facility] [place] [address] [place] [address] Encounter for long-term (current) use of high-risk [...] Sign Reading Time Taken Comments Blood Pressure 108/60 09/29/2024 3:24 PM EDT Pulse 79 09/29/2024 3:24 PM EDT Temperature 36.2 C (97.2 F) 09/29/2024 3:00 PM EDT Respiratory Rate 16 09/29/2024 3:24 PM EDT Oxygen Saturation 97% 09/29/2024 3:24 PM EDT Inhaled Oxygen Concentration - - Weight - - Height - - Body Mass Index - - documented in this encounter Progress Notes * Penny Baron RN - 09/29/2024 3:00 PM EDT Pt received Saphnelo 300mg. Pt stable at discharge. documented in this encounter Plan of Treatment Upcoming Encounters Date Type Department Care Team (Late st Contact Info) Description 11/25/2024 7:30 AM EDT Appointment [facility] [address] [place] [address] Selena Gray MD [address] [place] [address] 11/25/2024 9:00 AM EDT Office Visit [facility] [place] [address] [place] [address] Lyle Salgado MD [address] [place] [address] 11/25/2024 10:45 AM EDT Office Visit [facility] [address] [place] [address] 12/22/2024 2:45 PM EST Office Visit [facility] [address] [place] [address] Selena Gray MD [address] [place] [address] 12/23/2024 3:00 PM EST Office Visit [facility] [address] [place] [address] documented as of this encounter Goals Goal Patient Goal Type Associated Problems Recent Progress Patient-Stated? Author Blood Pressure < 140/90 Blood Pressure 110/60(2024 2:13 PM EDT) Marybel Rowan RMA Maintain a healthy diet, exercise regularly and maintain an ideal body weight General No Christina Newton APRN Stay Tobacco Free Lifestyle Christina Stveenson APRN documented as of this encounter Visit [...] 300 mg, Intravenous, ONCE, 1 dose, On Sat09/29/24 at 1515, Administer over 30 Minutes, Administer with 0.22 micron filter, Dx: 1. Encounter for long-term (current) use of high-risk medication 2. Systemic lupus erythematosus, unspecified SLE type, unspecified organ involvement status (HCC)Indications:Encounter for long-term (current) use of high-risk medication,Systemic lupus erythematosus, unspecified SLE type, unspecified organ involvement status (HCC) IV Started 09/29/2024 3:01 PM EDT 300 mg 200 mL /hr documented in this encounter Orders Medications Ordered That Tahir ht Not Have Been Administered Count Last Ordered Date First Ordered Date anifrolumab-fnia (SAPHNELO) 300 mg in sodium chloride 0.9 % 100 mL infusion 1 09/29/2024 documented in this encounter Care Teams Seed Yeast Operator Relationship Specialty Start Date End Date Maria G Laurent APRN [address] [facility] [address] [place] [address] PCP - General Nurse Practitioner 08/20/19 Jonah Eng MD [address] [place] [address] Physician Psychiatry & Neurology-Clinical Neurophysiology 09/16/13 Jaren Duran MD [address] [place] [address] Internal Medicine-Cardiovascular Disease 04/22/14 Selena Gray MD [address] [place] [address] Internal Medicine-Rheumatology 04/30/22 documented as of this encounter
--- OUTSIDE RECORDS SUMMARY | 2024-10-22 15:30 | XMS_ITS | Encounter Summary ---
Author Organization [facility] Address [address] [place] [address] Care Team Providers Care Director Of Strategic Communications Name Role Phone Jonah Eng MD Unavailable Jaren Duran MD Unavailable Unavailable Maria G Laurent APRN Primary Care Provider [phone] Selena Gray MD Unavailable Reason for Referral * DEXA (Routine) - Pending Review Specialty Diagnoses / Procedures Referred By Susanna means Referred To Contact Radiology Diagnoses Postmenopausal osteoporosis Procedures DX BONE DENSITY AXIAL SKELETON Selena Gray MD [address] [place] [address] Phone: tel: fax: Referral ID Status Reason Start Date Expiration Date V isits Requested Visits Authorized [id number] Pending Review 10/22/2024 10/22/2025 1 1 Reason for Visit * Reason Comments Lupus Encounter Details Date Type Department Care Team (Latest Contact Info) Description 10/22/2024 3:30 PM EDT Office Visit [facility] [address] [place] [address] Selena Gray MD [address] [place] [address] Systemic lupus erythematosus, unspecified SLE type, unspecified organ involvement status (HCC) (Primary Dx); Encounter for long-term (current) use of high-risk medication; Vitamin D deficiency; Postmenopausal osteoporosis; Immunosuppressed status; Swelling of both wrists; Hair loss Social History Tobacco Use Types Packs/Day Years [...] Sign Reading Time Taken Comments Blood Pressure 114/68 10/22/2024 3:27 PM EDT Pulse - - Temperature 36.3 C (97.3 F) 10/22/2024 3:27 PM EDT Respiratory Rate - - Oxygen Saturation - - Inhaled Oxygen Concentration - - Weight 85.3 kg (188 lb) 10/22/2024 3:27 PM EDT Height 170.2 cm (5' 7 ) 10/22/2024 3:27 PM EDT Body Mass Index 29.44 10/22/2024 3:27 PM EDT documented in this encounter Ordered Prescriptions Prescription Sig Dispense Quantity Refills Last Filled Start Date End Date leflunomide (ARAVA) 10 mg Oral Tablet Take 1 Tablet by mouth daily. 30 Tablet 2 10/22/2024 documented in this encounter Progress Notes * Selena Gray MD - 10/22/2024 3:30 PM EDT Images from the original note were not included. Subjective Subjective: Patient ID: Anne Rico is a 54 y.o. female. Chief Complaint Patient presents with ??? Lupus HPI: Anne Rico is a 54 y.o.female seen back today for follow up of her SLE: depot-medrol on the last visit; reports feeling achy like she has the flu without having the flu, prednisone helps; will come and go some day reports less, feel worse when the weather is hot and fátima, she has been avoiding the sun, reports not a lot of joint pain but still has pain intermittently in her wrists and ankles, one rash over her R lower arm lasted for a few days then resolved, reports increased hair loss RAPID 3 filled out by the patient and reviewed by myself today = 6.3/10 unchanged REVIEW OF SYSTEMS See HPI for further details. Review of systems otherwise negative. Past Medical History: Diagnosis Date ??? Arthritis rhumatoid ??? Autoimmune disease ??? Depression ??? ALY (dyspnea on exertion) ??? Headache(784.0) occ migranes, sees / [facility] ??? Hypertension ??? Irregular heart beat ??? Migraine ??? 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 Smoking status: Former Current packs/day: 0.00 Average packs/day: 0.5 packs/day for 26.7 years (13.4 ttl pk-yrs) Types: Cigarettes Start date: 04/29/1990 Quit date: 01/11/2017 Years since quittin.7 ??? Smokeless tobacco: Never Substance Use Topics ??? Alcohol use: Yes Types: 2 Glasses of wine per week Comment: occ History reviewed. No pertinent family history. Allergies Allergen Reactions ??? Axert [Almotriptan Malate] Nausea And Vomiting and Other (See Comments) Unknown ??? Certolizumab Pegol Hives Outpatient Medications Marked as Taking for the 10/22/24 encounter (Office Visit) with Selena Gray MD Medication Sig Dispense Refill ??? albuterol (PROVENTIL HFA;VENTOLIN HFA) 90 mcg/actuation Inhl HFA Aerosol Inhaler Inhale 2 Puffsinto the lungs every 4 hours as needed. 1 Each 0 ??? anifrolumab-fnia (SAPHNELO IV) Inject into the vein every 28 days. ??? Cholecalciferol, Vitamin D3, (VITAMIN D3) 125 mcg (5,000 unit) Oral Tablet Take 5,000 Units by mouth every other day. ??? cyanocobalamin 1,000 mcg/mL Inj Solution Inject 1 mL into the muscle every 14 days. 6 mL 1 ??? DULoxetine (CYMBALTA) 20 mg Oral Capsule, Delayed Release(E.C.) Take 20 mg by mouth 2 times daily. ??? ferrous sulfate 325 mg (65 mg iron) Oral Tablet Take 1 Tab by mouth 3 times daily. 90 Tab 5 ??? FLUoxetine 60 mg Oral Tablet Take 0.5 Tabs by mouth daily. ??? folic acid (FOLVITE) 1 mg Oral Tablet TAKE 1 TABLET BY MOUTH EVERY DAY 90 Tablet 0 ??? hydrocortisone 0.5 % Top Cream APPLY DAILY TO RASH NEEDED 28.4 g 0 ??? ibuprofen (ADVIL;MOTRIN) 200 mg Oral Tablet Take 2 Tabs by mouth 3 times daily as needed for Pain. 30 Tab 2 ??? Insulin Syringe-Needle U-100 (BD INSULIN SYRINGE) 1 mL 27 gauge x 1/2 Misc Syringe To to used with Methotrexate prescription. To take 0.6ml (15mg) SC weekly 25 Each 2 ??? KLOR-CON M20 20 mEq Oral Tab Sust.Rel. Particle/Crystal Take 20 mEq by mouth 2 times daily. ??? leucovorin (WELLCOVORIN) 5 mg Oral Tablet Take 8-12 hours after you methotrexate 5 Tablet 3 ??? LEVOthyroxine (SYNTHROID) 150 mcg Oral Tablet TAKE 1 TABLET BY MOUTH EVERY DAY 30 Tablet 0 ??? losartan-hydrochlorothiazide (HYZAAR) 100-12.5 mg Oral Tablet Take 1 Tablet by mouth daily. ??? [DISCONTINUED] methotrexate sodium, PF, 25 mg/mL Inj Solution Subcutaneous (Inject under the skin) 1 mL once a week. 8 mL 0 ??? nebivoloL (BYSTOLIC) 10 mg Oral Tablet Take 10 mg by mouth daily. ??? omeprazole (PRILOSEC) 20 mg Oral Capsule, Delayed Release(E.C.) Take 1 Capsule by mouth daily. 90 Capsule 0 ??? pyridoxine, vitamin B6, (B-6) 50 mg Oral Tablet TAKE 1 TABLET BY MOUTH EVERY OTHER DAY 45 Tablet 7 ??? Syringe with Needle, Disp, (BD LUER-KERVIN SYRINGE) 3 mL 25 gauge x 1 Misc Syringe USE EVERY 2 WEEKS WITH B12 INJECTION. 6 Each 3 Objective: Physical Exam Vital Signs: BP 114/68 (BP Location: Left arm) Temp 97.3 ??F (36.3 ??C) Ht 5' 7 (1.702 m) Wt188 lb (85.3 kg) BMI 29.44 kg/m?? Body mass index is 29.44 kg/m??. Well nourished and well developed in [...] Extremities b/l wrist mild swelling mild tenderness; no small joint synovitis; ; b/l shoulderhave no tenderness on full ROM Lower Extremities: ,B/L knees no swelling or tenderness; b/l lateral hip tenderness in bursa regionwith no pain in hip ROM, b/l ankles mild swelling with tenderness; -Muscle strength and coordination [...] to moderate mass effect -Xrays taken at [facility] 06/17/13 ; normal cervical spine; hands, r feet with R 1st MTP degenerative arthritis. -DEXA Scans: -Advised an earlier DEXA screen due to sustained prior glucorticoid use ordered today; last done 2017; normal -Documents: -has been unable to work due to her chronic symptoms -statement for disability written 07/20/14 and again 10/29/16 -[place] paperwork filled 12/23/13 -INJECTIONS: -depot 80 mg [...] cortisone 08/06/16 -R medial epicondyle; cortisone -PROCEDURES: -LABS: -TB gold dated 07/22/24; negative -Labs dated; 07/22/24; reviewed with the patient; pertinent positive and negatives include; normal CBC diff, CMP, ESR, CRP 9.6 from 11.7, vit. D 70, dsdna neg. C3 206 H, normal C4 -UA: 07/22/24: no casts/ prot/ RBC's -repeat UA w nephro. Or Q 6 months -repeat labs advised today then again in a month from starting the arava -DEXA advised/ ordered Assessment and Plan: Diagnoses and all orders for this visit: Systemic lupus erythematosus, unspecified SLE type, unspecified organ involvement status (HCC) (Chronic) Overview: -Last Visit; 07/16/24 # Rheumatoid arthritis with rheumatoid factor of multiple sites (M05.79): # Ankle pain (M25.579): # Wrist pain: -positive RF (07/26/13) RA overlap with SLE; RHUPUS -disease activity: depot-medrol on the last visit; has had several flares; not all joint related, fatigued, feels like she has the flu discussed could be more SLE related due for her saphnelo tomorrow -cont. saphnelo infusions monthly (first infusion 10/21/23) last infused 09/29/24; -today it was decided to change to arava 10mg qday (10/22/24) from MTX has been on in the past but came off control since her last visit advised will need to start effective control prior to restarting the MTX or arava hold until started -will try to hold off on depot-medrol or prednisone -fatigue is worse; on Q2 week B12 injections through endocrine -tapered off low dose chronic PRN prednisone Feb 2021 -Duexis PRN -responsive to R wrist b/l ankle injections -Initial symptoms: low grade fevers;auto inflammatory response leucocytosis, soft tissue swelling over upper chest, night sweats w flares; -FAILED: -Failed actemra infusion; not effective and developed; oral, nasal ulcers, hair loss; malar rash and an + FRANCOISE (total of 3 infusions 2019) -failed orencia infusions and subQ; improved joints but not SLE symptoms d/c 04/06/19 -Failed Humira (hives) but effective -Failed enbrel; ineffective -Failed Xeljanz not effective X 3 months -Failed arava; not as effective as MTX -Failed Simponi infusions; lost responsiveness -Failed Cimzia; 2 injections; rash over injection sites/ back/ chest / and face; rash did not resolve for several months, determined not cimzia related -Failed diclofenac. --Failed sulfasalazine -Failed Plaquenil; rash -Benlysta infusions (started 07/29/20); last infused: 08/23/23; effective but continued symptoms -MTX subQ 25mg (1cc; 04/14/24 change from PO) her sister assisting w injections (restarted 05/2022 to 10/22/24 to trial arava); nausea with PO doses; Leucovorin # Systemic lupus erythematosus (M32.9): # RASH (R21): # Loss of hair (L65.9): -dx 08/2018 rash malar; /nasal ulcers, hair loss; polyarthritis/ anemia -FRANCOISE dated 02/02/19; 1:80 (on chronic prednisone) negative dsdna; overlap with RA -disease is active: SLE as above; hair loss, fatigue, myalgias, due for her infusion tomorrow UA /labs stable -change from benlysta to saphnelo -change to arava from MTX 25mg subQ -not on plaquenil (allergy) -PRN hydrocrtisone cream for face instead of PO prednisone; call if prednisone needed -nephro. Follows her UA -2014 developed complete loss of hair due to thyroid deficiency but also had a low + FRANCOISE of 1:80 atthe time/ mouth ulcers; -synthroid improved hair loss, sees endo; hold of MTX did not change hair loss -FAILED: -Failed plaquenil; rash (advised to see allergy to determine if she can retry -Failed all PO DMARDs -failed Benlysta as above responsive but active RA and SLE # Headache (R51): -history of migraines; symptoms stable; seen by Dr. 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 30mg -anxiety stable; denies depression/SI/HI # Anemia (D64.9): # Leukocytosis (D72.829): # abnormal SPEP -recurrent leukocytosis correlates with flares; auto inflammatory -sees Dr/ Talita; paraproteinemia on labs 06/04/23; OTC iron -Seen by GI (rodney); normal upper and lower GI series # Cervical spondylosis (M47.812): # Microscopic hematuria (R31.29): -sees Dr. Page, UA stable # Taking medication for chronic disease (Z79.899): [...] along with the methotrexate -cont folic/ rheumate -Arava; discussed risks and adverse effects including but not limited to the risk of diarrhea, elevated liver enzymes (ALT and AST), alopecia, rash, and teratogenicity effects of which may be presentfor as long as 2 years from discontinuation of drug -Saphnelo: -We disucssed common and serious side [...] psychosis, insomnia, avascular necrosis and weight gain Encounter for long-term (current) use of high-risk medication - CBC WITH AUTO DIFF-QUEST; Future - COMPREHENSIVE METABOLIC PANEL-QUEST; Future - SEDIMENTATION RATE AUTOMATED-QUEST; Future - C REACTIVE PROTEIN-QUEST; Future - CBC WITH AUTO DIFF-QUEST - COMPREHENSIVE METABOLIC PANEL-QUEST - SEDIMENTATION RATE AUTOMATED-QUEST - VITAMIN D 25 HYDROXY-QUEST - C REACTIVE PROTEIN-QUEST Vitamin D deficiency - VITAMIN D 25 HYDROXY-QUEST Postmenopausal osteoporosis - DX BONE DENSITY AXIAL SKELETON; Future Immunosuppressed status (Chronic) Swelling of both wrists Hair loss Other orders - leflunomide (ARAVA) 10 mg Oral Tablet; Take 1 Tablet by mouth daily. Dispense: 30 Tablet; Refill:2 Return in about 2 months (around 12/22/2024), or 2-3 months. documented in this encounter Miscellaneous Notes * Patient Instructions - Selena Gray MD - 10/22/2024 3:30 PM EDT Please start on control (progesterone based) before taking the arava or methotrexate -please have labs done in 1 month next saphnelo documented in this encounter Plan of Treatment Upcoming Encounters Date Type Department Care Team (Late st Contact Info) Description 11/25/2024 7:30 AM EDT Appointment [facility] D[facility]A [address] [place] [address] Selena Gray MD [address] [place] [address] 11/25/2024 9:00 AM EDT Office Visit [facility] [address] [address] Lyle Salgado MD [address] [place] [address] 11/25/2024 10:45 AM EDT Office Visit [facility] [address] [place] [address] 12/22/2024 2:45 PM EST Office Visit [facility] [address] [place] [address] Selena Gray MD [address] [place] [address] 12/23/2024 3:00 PM EST Office Visit [facility] [address] [place] [address] Scheduled Orders Name Type Priority Associated Diagnoses Orde r Schedule CBC WITH AUTO DIFF-QUEST Lab Routine Encounter for long-term (current) use of high-risk medication 1 Occurrences starting 10/22/2024 until 10/22/2025 COMPREHENSIVE METABOLIC PANEL-QUEST Lab Routine Encounter for long-term (current) use of high-risk medication 1 Occurrences starting 10/22/2024 until 10/22/2025 SEDIMENTATION RATE AUTOMATED-QUEST Lab Routine Encounter for long-term (current) use of high-risk medication 1 Occurrences starting 10/22/2024 until 10/22/2025 C REACTIVE PROTEIN-QUEST Lab Routine Encounter for long-term (current) use of high-risk medication 1 Occurrences starting 10/22/2024 until 10/22/2025 VITAMIN D 25 HYDROXY-QUEST Lab Routine Encounter for long-term (current) use of high-risk medication Vitamin D deficiency Ordered: 10/22/2024 DX BONE DENSITY AXIAL SKELETON Imaging Routine Postmenopausal osteoporosis 1 Occurrences starting 10/22/2024 until 10/22/2025 documented as of this encounter Goals Goal Patient Goal Type Associated Problems Recent Progress Patient-Stated? Author Blood Pressure < 140/90 Blood Pressure 110/60(2024 2:13 PM EDT) Marybel Rowan, RMA Maintain a healthy diet, exercise regularly and maintain an ideal body weight General No Christina Newton APRN Stay Tobacco Free Lifestyle No Christina Newton APRN documented as of this encounter Procedures Procedure Name Priority Date/Time Associated Diagnosis Comments VITAMIN D 25 HYDROXY-QUEST Routine 10/22/2024 4:08 PM EDT SEDIMENTATION RATE AUTOMATED-QUEST Routine 10/22/2024 4:08 PM EDT Encounter for long-term (current) use of high-risk medication C REACTIVE PROTEIN-QUEST Routine 10/22/2024 4:08 PM EDT Encounter for long-term (current) use of high-risk medication COMPREHENSIVE METABOLIC PANEL-QUEST Routine 10/22/2024 4:08 PM EDT Encounter for long-term (current) use of high-risk medication CBC WITH AUTO DIFF-QUEST Routine 10/22/2024 4:08 PM EDT Encounter for long-term (current) use of high-risk medication documented in this encounter Results * VITAMIN D 25 HYDROXY-QUEST (10/22/2024 4:08 PM EDT) [facility] VIT D 25 OH 63 30 - 100 ng/mL [facility] Comment: Vitamin D Status 25-OH Vitamin D: Deficiency: <20 ng/mL Insufficiency: 20 - 29 ng/mL Optimal: > or = 30 ng/mL For 25-OH Vitamin D testing on patients on D2-supplementation and patients for whom quantitation of D2 and D3 fractions is required, the QuestAssureD(TM) 25-OH VIT D, (D2,D3), LC/MS/MS is recommended: order code 13724 (patients >2yrs). See Note 1 Note 1 For additional information, please refer to http://[email or web address]/faq/MQJ632 (This link is being provided for informational/ educational purposes only.) 10/22/2024 4:08 PM EDT 10/22/2024 4:09 PM EDT Selena Gray MD [facility]CHEMISTRY ORDERABLES Final Result Performing Organization Address City/[facility]/ZIP Co de Phone Number [facility] [address] [place] [address] * C REACTIVE PROTEIN-QUEST (10/22/2024 4:08 PM EDT) CRP 4.6 <8.0 mg/L [facility] 10/22/2024 4:08 PM EDT 10/22/2024 4:09 PM EDT Selena Gray MD [facility]-CHEMISTRY ORDERABLES Final Result Performing Organization Address [facility] Co de Phone Number [facility] [address] [place] [address] * SEDIMENTATION RATE AUTOMATED-QUEST (10/22/2024 4:08 PM EDT) Sed Rate 9 < OR = 30 mm/h [facility] 10/22/2024 4:08 PM EDT 10/22/2024 4:09 PM EDT Selena Gray MD [facility]-HEMATOLOGY ORDERABLES Yuly l Result Performing Organization Address [facility] Co de Phone Number [facility] [address] [place] [address] * COMPREHENSIVE METABOLIC PANEL-QUEST (10/22/2024 4:08 PM EDT) Glucose 87 65 - 99 mg/dL [facility] Comment: Fasting reference interval BUN 16 7 - 25 mg/dL [facility] Creatinine 0.90 0.50 - 1.03 mg/dL [facility] EGFR 77 > OR = 60 mL/min/1.7 3m2 [facility] BUN/Creatinine Ratio SEE NOTE: (calc) [facility] Comment: Not Reported: BUN and Creatinine are within reference range. Sodium 138 135 - 146 mmol/L [facility] Potassium 3.9 3.5 - 5.3 mmol/L [facility] Chloride 101 98 - 110 mmol/L [facility] CO2 25 20 - 32 mmol/L [facility] Calcium 9.6 8.6 - 10.4 mg/dL [facility] Protein, Total 6.8 6.1 - 8.1 g/dL [facility] Albumin 4.1 3.6 - 5.1 g/dL [facility] Globulin 2.7 1.9 - 3.7 g/dL (calc) [facility] Albumin/Globuli n Ratio 1.5 1.0 - 2.5 (calc) [facility] Total Bilirubin 0.3 0.2 - 1.2 mg/dL [facility] Alk Phos 48 37 - 153 U/L [facility] AST 15 10 - 35 U/L [facility] ALT 18 6 - 29 U/L [facility] 10/22/2024 4:08 PM EDT 10/22/2024 4:09 PM EDT us Selena Gray MD [facility]CHEMISTRY ORDERABLES Final Result [facility] [address] [place] [address] * (ABNORMAL) CBC WITH AUTO DIFF-QUEST (10/22/2024 4:08 PM EDT) WBC 13.1(H) 3.8 - 10.8 Thousand/u L [facility] RBC 4.50 3.80 - 5.10 Million/uL [facility] Hemoglobin 12.8 11.7 - 15.5 g/dL [facility] Hematocrit 39.3 35.0 - 45.0 % [facility] MCV 87.3 80.0 - 100.0 fL [facility] MCH 28.4 27.0 - 33.0 pg [facility] MCHC 32.6 32.0 - 36.0 g/dL [facility] Comment: For adults, a slight decrease in the calculated MCHC value (in the range of 30 to 32 g/dL) is most likely not clinically significant; however, it should be interpreted with caution in correlation with other red cell parameters and the patient's clinical condition. RDW 12.5 11.0 - 15.0 % [facility] Platelets 381 140 - 400 Thousand/u L [facility] MPV 10.4 7.5 - 12.5 fL [facility] Neut# 8,017(H) 1,500 - 7,800 cells/uL [facility] Lymph# 3,904(H) 850 - 3,900 cells/uL [facility] Monocytes(Absolu te) 983(H) 200 - 950 cells/uL [facility] Eos 131 15 - 500 cells/uL [facility] Baso# 66 0 - 200 cells/uL [facility] Neut Percent 61.2 % [facility] Lymph Percent 29.8 % [facility] Monocytes 7.5 % [facility] Eos Percent 1.0 % [facility] Baso Percent 0.5 % [facility] 10/22/2024 4:08 PM EDT 10/22/2024 4:09 PM EDT us Selena Gray MD [facility]-HEMATOLOGY ORDERABLES Yuly alarcon Result [facility] [address] [place] [address] documented in this encounter Visit Diagnoses Diagnosis Systemic lupus erythematosus, unspecified SLE type, unspecified organ involvement status (HCC)- Primary Encounter for long-term (current) use of high-risk medication Encounter for long-term (current) use of other medications Vitamin D deficiency Unspecified vitamin D deficiency Postmenopausal osteoporosis Senile osteoporosis Immunosuppressed status Unspecified disorder of immune mechanism Swelling of both wrists Hair loss Alopecia, unspecified documented in this encounter Discontinued Medications Medication Sig Discontinue Reason Start Date End Da te methotrexate sodium, PF, 25 mg/mL Inj SolutionIndications:Sy stemic lupus erythematosus, unspecified SLE type, unspecified organ involvement status (HCC),Encounter for long-term (current) use of high-risk medication Subcutaneous (Inject under the skin) 1 mL once a week. Cancelled by 04/14/2024 10/22/2024 documented as of this encounter Care Teams Director Of Strategic Communications Relationship Specialty Start Date End Date Maria G Laurent APRN [facility] [address] [place] [address] PCP - General Nurse Practitioner 08/20/19 Jonah Eng MD [address] [place] [address] Physician Psychiatry & Neurology-Clinical Neurophysiology 09/16/13 Jaren Duran MD [address] [place] [address] Internal Medicine-Cardiovascular Disease 04/22/14 Selena Gray MD [address] [place] [id number] Internal Medicine-Rheumatology 04/30/22 documented as of this encounter
--- OUTSIDE RECORDS SUMMARY | 2024-10-27 13:45 | XMS_ITS | Encounter Summary ---
Author Organization 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 Procedures MS INJ ANIFROLUMAB-FNIA 1MG Selena Gray MD [address] [place] [address] Phone: tel: fax: [facility] [address] [place] [address] Referral ID Status Reason Start Date Expiration Date V isits Requested Visits Authorized [id number] Authorized 10/02/2023 99 99 Encounter Details Date Type Department Care Team (Latest Contact Info) Description 10/27/2024 1:45 PM EDT Office Visit [facility] [place] [address] [place] [phone] Encounter for long-term (current) use of high-risk [...] Sign Reading Time Taken Comments Blood Pressure 110/60 10/27/2024 2:13 PM EDT Pulse 83 10/27/2024 2:13 PM EDT Temperature 36.1 C (97 F) 10/27/2024 1:54 PM EDT Respiratory Rate 20 10/27/2024 2:13 PM EDT Oxygen Saturation 98% 10/27/2024 2:13 PM EDT Inhaled Oxygen Concentration - - Weight - - Height - - Body Mass Index - - documented in this encounter Progress Notes * Chrissy Rico, RN - 10/27/2024 1:45 PM EDT Patient tolerated saphnelol 300mg infusion well. Discharge stable. documented in this encounter Plan of Treatment Upcoming Encounters Date Type Department Care Team (Late st Contact Info) Description 11/25/2024 7:30 AM EDT Appointment [facility] [address] [id number] Selena Gray MD [address] [place] [address] 11/25/2024 9:00 AM EDT Office Visit [facility] [address] [place] [address] Lyle Salgado MD [address] [place] [address] 11/25/2024 10:45 AM EDT Office Visit [facility] [place] [address] [place] [address] 12/22/2024 2:45 PM EST Office Visit [facility] [address] [place] [address] Selena Gray MD [address] [place] [address] 12/23/2024 3:00 PM EST Office Visit [facility] [address] [place] [address] documented as of this encounter Goals Goal Patient Goal Type Associated Problems Recent Progress Patient-Stated? Author Blood Pressure < 140/90 Blood Pressure 110/60(2024 2:13 PM EDT) No Marybel Singh RMA Maintain [...] 300 mg, Intravenous, ONCE, 1 dose, On Sat10/27/24 at 1400, Administer over 30 Minutes, Administer with 0.22 micron filter, Dx: 1. Encounter for long-term (current) use of high-risk medication 2. Systemic lupus erythematosus, unspecified SLE type, unspecified organ involvement status (HCC)Indications:Encounter for long-term (current) use of high-risk medication,Systemic lupus erythematosus, unspecified SLE type, unspecified organ involvement status (HCC) IV Started 10/27/2024 1:55 PM EDT 300 mg 200 mL /hr documented in this encounter Orders Medications Ordered That Tahir ht Not Have Been Administered Count Last Ordered Date First Ordered Date anifrolumab-fnia (SAPHNELO) 300 mg in sodium chloride 0.9 % 100 mL infusion 1 10/27/2024 documented in this encounter Care Teams Transmission Repairer Relationship Specialty Start Date End Date Maria G Laurent APRN [address] [facility] [address] [place] [address] PCP - General Nurse Practitioner 08/20/19 Jonah Eng MD [address] [place] [address] Physician Psychiatry & Neurology-Clinical Neurophysiology 09/16/13 Jaren Duran MD [address] [place] [address] Internal Medicine-Cardiovascular Disease 04/22/14 Selena Gray MD [address] [place] [address] Internal Medicine-Rheumatology 04/30/22 documented as of this encounter
[2024-11-17 18:17] LABS: Alanine Aminotransferase 24 U/L (12-78); Albumin Level 3.8 g/dl (3.5-5.0); Albumin/Globulin Ratio 1.4 (1.1-1.8); Alkaline Phosphatase 95 U/L (38-126); Anion Gap 17.6 mEq/L (5-15); Aspartate Amino Transferase 30 U/L (14-36); Bilirubin,Total 0.4 mg/dl (0.2-1.3); Blood Urea Nitrogen 10 mg/dl (7-17); Calcium 9.1 mg/dl (8.4-10.2); Carbon Dioxide 20 mmol/L (22.0-30.0); Chloride 103 mmol/L (98-107); Creatinine,Serum 0.50 mg/dl (0.52-1.04); Estimated Glomerular Filt Rate 130 ml/min (>60); GFR (African American) 157 ML/MIN (>60); Globulin 2.7 g/dL (1.3-3.2); Glucose 58 mg/dl (74-100); Potassium 4.6 mmoL/L (3.5-5.1); Sodium 136 mmol/L (136-145); Total Protein,Serum 6.5 g/dl (6.3-8.2)
[2024-11-17 18:31] LABS: Free T4 (Free Thyroxine) 0.56 ng/dl (0.78-2.19)
[2024-11-17 18:44] LABS: Thyroid Stimulating Hormone 8.80 uIU/mL (0.465-4.68)
--- OUTSIDE RECORDS SUMMARY | 2024-11-17 23:00 | XMS_ITS | Encounter Summary ---
Author Organization [facility] Address [address] [place] [address] Care Team Providers Care Box Turner Name Role Phone Jonah Eng MD Unavailable Jaren Duran MD Unavailable Unavailable Maria G Laurent APRN Primary Care Provider [phone] Selena Gray MD Unavailable Encounter Details Date Type Department Care Team (Late st Contact Info) Description 10/06/2024 Orders Only [facility] [address] [place] [address] Selena Gray MD [address] [place] [address] Social History Tobacco Use Types Packs/Day Years [...] Info) Description 11/25/2024 7:30 AM EDT Appointment [facility] DEXA [address] [place] [address] Selena Gray MD [address] [place] [address] 11/25/2024 9:00 AM EDT Office Visit [facility] [place] [address] [place] [address] Lyle Salgado MD [address] [place] [address] 11/25/2024 10:45 AM EDT Office Visit [facility] [address] [place] [address] 12/22/2024 2:45 PM EST Office Visit [facility] [address] [place] [address] Selena Gray MD [address] [place] [address] 12/23/2024 3:00 PM EST Office Visit [facility] [address] [place] [address] documented as of this encounter Goals Goal Patient Goal Type Associated Problems Recent Progress Patient-Stated? Author Blood Pressure < 140/90 Blood Pressure 110/60(2024 2:13 PM EDT) No Marybel Singh, RMA Maintain a healthy diet, exercise regularly and maintain an ideal body weight General No Christina Newton APRN Stay Tobacco Free Lifestyle No Christina Newton APRN documented as of this encounter Visit Diagnoses Not on filedocumented in this encounter Care Teams Box Turner Relationship Specialty Start Date End Date Maria G Laurent APRN [address] [facility] [address] [facility] [address] [place] [address] PCP - General Nurse Practitioner 08/20/19 Jonah Eng MD [address] [place] [address] Physician Psychiatry & Neurology-Clinical Neurophysiology 09/16/13 Jaren Duran MD [address] [place] [address] Internal Medicine-Cardiovascular Disease 04/22/14 Selena Gray MD [address] [place] [address] Internal Medicine-Rheumatology 04/30/22 documented as of this encounter
--- OUTSIDE RECORDS SUMMARY | 2024-11-17 23:00 | XMS_ITS | Encounter Summary ---
Author Organization [facility] Address [address] [place] [address] Care Team Providers Care Boiler Operator Helper Name Role Phone Jonah Eng MD Unavailable Jaren Duran MD Unavailable Unavailable Maria G Laurent APRN Primary Care Provider [phone] Selena Gray MD Unavailable Encounter Details Date Type Department Care Team (Late st Contact Info) Description 10/05/2024 Orders Only [facility] [employer] [facility] [employer] [facility] [address] [place] [address] Selena Gray MD [address] [place] [address] Social History Tobacco Use Types [...] Info) Description 11/25/2024 7:30 AM EDT Appointment [facility] DEXA [address] [place] [address] Selena Gray MD [address] [place] [address] 11/25/2024 9:00 AM EDT Office Visit [facility] [place] [address] [place] [address] Lyle Salgado MD [address] [place] [address] 11/25/2024 10:45 AM EDT Office Visit [facility] [address] [place] [address] 12/22/2024 2:45 PM EST Office Visit [facility] [address] [place] [address] Selena Gray MD [address] [place] [address] 12/23/2024 3:00 PM EST Office Visit [facility] [address] [place] [phone] documented as of this encounter Goals Goal [...] on filedocumented in this encounter Care Teams Boiler Operator Helper Relationship Specialty Start Date End Date Maria G Laurent APRN [address] [facility] [address] [place] [address] PCP - General Nurse Practitioner 08/20/19 Jonah Eng MD [address] [place] [address] Physician Psychiatry & Neurology-Clinical Neurophysiology 09/16/13 Jaren Duran MD [address] [place] [address] Internal Medicine-Cardiovascular Disease 04/22/14 Selena Gray MD [address] [place] [address] Internal Medicine-Rheumatology 04/30/22 documented as of this encounter
--- OUTSIDE RECORDS SUMMARY | 2024-11-17 23:00 | XMS_ITS | Encounter Summary ---
Author Organization [facility] Address [address] [place] [address] Care Team Providers Care Worldwide Chief Creative Officer Name Role Phone Jonah Eng MD Unavailable Jaren Duran MD Unavailable Unavailable Maria G Laurent APRN Primary Care Provider [phone] Selena Gray MD Unavailable Reason for Visit * Reason Onset Date Comments Medication Refill 09/23/2024 Encounter Details Date Type Department Care Team (Late st Contact Info) Description 09/23/2024 Refill [facility] [address] [place] [address] Selena Gray MD [address] [place] [address] Medication Refill Social History Tobacco [...] 1 Capsule by mouth daily. 90 Capsule 09/24/2024 predniSONE (DELTASONE) 10 mg Oral TabletIndications:Pr imary osteoarthritis of right knee,Primary osteoarthritis of left knee Take 3 tablets daily x 5 days then 2 tablets daily x 5 days then 1 tablet daily x 5 days then stop. 30 Tablet 09/24/2024 documented in this encounter Miscellaneous Notes * Telephone Encounter - Mary Coker MA - 09/24/2024 11:21 AM EDT Patient sent MyChart requesting refill on her Omeprazole and Prednisone taper CON 07/16/24 Last sent to pharmacy [facility] 06/08/24 # 90 NR Pred 05/13/24 RTC 10/22/24 Ok to refill Prednisone taper? Pharmacy [facility] Medication PEND documented in this encounter Plan of Treatment Upcoming Encounters Date Type Department Care Team (Late st Contact Info) Description 11/25/2024 7:30 AM EDT Appointment [facility] D[facility]A [address] [phone] Selena Gray MD [address] [place] [address] 11/25/2024 9:00 AM EDT Office Visit [facility] [place] [address] [place] [address] Lyle Salgado MD [address] [place] [address] 11/25/2024 10:45 AM EDT Office Visit [facility] [address] [place] [address] 12/22/2024 2:45 PM EST Office Visit [facility] [address] [place] [address] Selena Gray MD [address] [place] [address] 12/23/2024 3:00 PM EST Office Visit [facility] [place] [address] [place] [address] documented as of this encounter Goals Goal Patient Goal Type Associated Problems Recent Progress Patient-Stated? Author Blood Pressure < 140/90 Blood Pressure 110/60(2024 2:13 PM EDT) Marybel Rowan RMA Maintain a healthy diet, exercise regularly and maintain an ideal body weight General No Christina Newton APRN Stay Tobacco Free Lifestyle No Christina Newton APRN documented as of this encounter Visit Diagnoses Diagnosis Primary osteoarthritis of right knee Primary localized osteoarthrosis, lower leg Primary osteoarthritis of left knee Primary localized osteoarthrosis, lower leg documented in this encounter Discontinued Medications Medication Sig Discontinue Reason Start Date End Da te omeprazole (PRILOSEC) 20 mg Oral Capsule, Delayed Release(E.C.) TAKE 1 CAPSULE BY MOUTH EVERY DAY Reorder 06/08/2024 09/23/2024 predniSONE (DELTASONE) 10 mg Oral TabletIndications:Primary osteoarthritis of right knee,Primary osteoarthritis of left knee TAKE 3 TABLETS DAILY X 5 DAYS THEN 2 TABLETS DAILY X 5 DAYS THEN 1 TABLET DAILY X 5 DAYS THEN STOP. Reorder 05/13/2024 09/23/2024 documented as of this encounter Care Teams Worldwide Chief Creative Officer Relationship Specialty Start Date End Date Maria G Laurent APRN [address]10 [facility] [address] [place] [address] PCP - General Nurse Practitioner 08/20/19 Jonah Eng MD [address] [place] [address] Physician Psychiatry & Neurology-Clinical Neurophysiology 09/16/13 Jaren Duran MD [address] [place] [address] Internal Medicine-Cardiovascular Disease 04/22/14 Selena Gray MD [address] [place] [address] Internal Medicine-Rheumatology 04/30/22 documented as of this encounter
--- OUTSIDE RECORDS SUMMARY | 2024-11-17 23:00 | XMS_ITS | Encounter Summary ---
Author Organization [place] [address] Care Team Providers Care Jack Tamp Operator Name Role Phone Jonah Eng MD Unavailable Jaren Duran MD Unavailable Unavailable Shawn Ramirez MD Primary Care Provider [phone] Maria G Laurent APRN Primary Care Provider [phone] Selena Gray MD Unavailable Encounter Details Date Type Department Care Team (Late st Contact Info) Description 06/14/2014 Orders Only [facility] [address] [facility] [address] [place] [address] Megan Carlson, CLASSIFIED ADVERTISING SUPERVISOR [address] [place] [address] Social History Tobacco Use Types [...] Info) Description 11/25/2024 7:30 AM EDT Appointment [facility] DEXA [address] [place] [address] Selena Gray MD [address] [place] [address] 11/25/2024 9:00 AM EDT Office Visit [facility] [place] [address] [place] [address] Lyle Salgado MD [address] [place] [address] 11/25/2024 10:45 AM EDT Office Visit [facility] [address] [place] [address] 12/22/2024 2:45 PM EST [facility] [address] [place] [address] Selena Gray MD [address] [place] [address] 12/23/2024 3:00 PM EST Office Visit [facility] [address] [place] [address] documented as of this encounter Procedures Procedure Name Priority Date/Time Associated Diagnosis Comments ELECTROPHYSIOLOGY OR IMPLANT PROCEDURE LOG Routine 06/14/2014 11:36 AM EDT documented in this encounter Results * ELECTROPHYSIOLOGY OR IMPLANT PROCEDURE LOG (06/14/2014 11:36 AM EDT) 06/14/2014 11:3 6 AM EDT us Megan Carlson CLASSIFIED ADVERTISING SUPERVISOR CARDIAC CATH ORDERABLES Ed ited Result - Final [facility] [address] [place] [address] documented in this encounter Visit Diagnoses Not on filedocumented in this encounter Care Teams Jack Tamp Operator Relationship Specialty Start Date End Date Shawn Ramirez MD [address] [place] [phone] PCP - General Family Medicine 05/11/14 07/07/18 Maria G Laurent APRN 1210 [facility] [address] [place] [address] PCP - General Nurse Practitioner 08/20/19 Jonah Eng MD [address] [place] [address] Physician Psychiatry & Neurology-Clinical Neurophysiology 09/16/13 Jaren Duran MD [address] [place] [address] Internal Medicine-Cardiovascular Disease 04/22/14 [place] [address] [place] [address] Internal Medicine-Rheumatology 04/30/22 documented as of this encounter
--- OUTSIDE RECORDS SUMMARY | 2024-11-17 23:00 | XMS_ITS | Encounter Summary ---
Author Organization [facility] Address [address] [place] [address] Care Team Providers Care Pizza Chef Name Role Phone Jonah Eng MD Unavailable Jaren Duran MD Unavailable Unavailable Maria G Laurent APRN Primary Care Provider [phone] Selena Gray MD Unavailable Encounter Details Date Type Department Care Team (Late st Contact Info) Description 10/06/2024 Orders Only [facility] [address] [place] [address] Selena Gray MD [address] [place] [address] Social History Tobacco Use Types [...] Info) Description 11/25/2024 7:30 AM EDT Appointment [facility] DEXA [address] [place] [address] Selena Gray MD [address] [place] [address] 11/25/2024 9:00 AM EDT Office Visit [facility] [place] [address] [place] [address] Lyle Salgado MD [address] [place] [address] 11/25/2024 10:45 AM EDT Office Visit [facility] [address] [place] [address] 12/22/2024 2:45 PM EST Office Visit [facility] [address] [place] [address] Selena Gray MD [address] [place] [address] 12/23/2024 3:00 PM EST Office Visit [facility] [address] [place] [address] documented as of this encounter Goals Goal [...] on filedocumented in this encounter Care Teams Pizza Chef Relationship Specialty Start Date End Date Maria G Laurent APRN 1210 [facility] [address] [place] [address] PCP - General Nurse Practitioner 08/20/19 Jonah Eng MD [address] [place] [address] Physician Psychiatry & Neurology-Clinical Neurophysiology 09/16/13 Jaren Duran MD [address] [place] [address] Internal Medicine-Cardiovascular Disease 04/22/14 Selena Gray MD [address] [place] [address] Internal Medicine-Rheumatology 04/30/22 documented as of this encounter
--- OUTSIDE RECORDS SUMMARY | 2024-11-17 23:00 | XMS_ITS | Encounter Summary ---
Author Organization [place] [address] Care Team Providers Care Sports Agent Name Role Phone Jonah Eng MD Unavailable Jaren Duran MD Unavailable Unavailable Shawn Ramirez MD Primary Care Provider [phone] Maria G Laurent APRN Primary Care Provider Selena Gray MD Unavailable Encounter Details Date Type Department Care Team (Late st Contact Info) Description 12/20/2016 E-Visit [facility] [address] [place] [id number] Shawn Ramirez MD [address] [place] [id number] E-Visit Submission: Urinary Problems Social History [...] Description 11/25/2024 7:30 AM EDT Appointment [facility] [address] [place] [address] Selena Gray MD [address] [place] [address] 11/25/2024 9:00 AM EDT Office Visit [facility] [place] [address] [place] [address] Lyle Salgado MD [address] [place] [phone] 11/25/2024 10:45 AM EDT Office Visit [facility] [address] [place] [address] 12/22/2024 2:45 PM EST Office Visit [facility] [address] [place] [address] Selena Gray MD [address] [place] [address] 12/23/2024 3:00 PM EST [facility] [address] [place] [address] documented as of this encounter Goals Goal Patient Goal Type Associated Problems Recent Progress Patient-Stated? Author Blood Pressure < 140/90 Blood Pressure 110/60(2024 2:13 PM EDT) No Napoleon reynolds, Marybel M, RMA Maintain a healthy diet, exercise regularly and maintain an ideal body weight General No Christina Newton APRN Stay Tobacco Free Lifestyle No Christina Newton APRN documented as of this encounter Visit Diagnoses Not on filedocumented in this encounter Care Teams Sports Agent Relationship Specialty Start Date End Date Shawn Ramirez MD [address] [place] [id number] PCP - General Family Medicine 05/11/14 07/07/18 Maria G Laurent APRN 1210 [facility] [address] [facility] [address] [place] [address] PCP - General Nurse Practitioner 08/20/19 Jonah Eng MD [address] [place] [address] Physician Psychiatry & Neurology-Clinical Neurophysiology 09/16/13 Jaren Duran MD [address] [address] Internal Medicine-Cardiovascular Disease 04/22/14 [place] [address] [place] [address] Internal Medicine-Rheumatology 04/30/22 documented as of this encounter
--- OUTSIDE RECORDS SUMMARY | 2024-11-17 23:01 | XMS_ITS | Clinical Summary ---
Author Organization [facility] Address [address] [place] [address] Phone Care Team Providers Care Egg Crater Name Role Phone Jonah Eng MD Unavailable Jaren Duran MD Unavailable Unavailable Maria G Laurent APRN Primary Care Provider [phone] Selena Gray MD Unavailable Allergies Active Allergy Reactions Criticality Noted Date Comments Almotriptan Malate Nausea And Vomiting, Other (See Comments) High 12/27/2009 Unknown Certolizumab Pegol Hives 01/24/2023 Medications FLUoxetine 60 mg Oral Tablet Take 0.5 Tabs by mouth daily. Active ibuprofen (ADVIL;MOTRIN) 200 mg Oral TabletIndications: Contusion of right chest wall, initial encounter Take 2 Tabs by mouth 3 times daily as needed for Pain. 30 Tab 2 03/14/19 17 Active ferrous sulfate 325 mg (65 mg iron) Oral Tablet Take 1 Tab by mouth 3 times daily. 90 Tab 5 08/24/19 20 Active Cholecalciferol, Vitamin D3, (VITAMIN D3) 125 mcg (5,000 unit) Oral TabletIndications: Vitamin D deficiency Take 5,000 Units by mouth every other day. 02/22/19 21 Active Syringe with Needle, Disp, (BD LUER-KERVIN SYRINGE) 3 mL 25 gauge x 1 Misc SyringeIndications :B12 deficiency USE EVERY 2 WEEKS WITH B12 INJECTION. 6 Each 3 05/25/19 23 Active pyridoxine, vitamin B6, (B-6) 50 mg Oral TabletIndications: B12 deficiency,Seconda ry hypothyroidism,Vit garza B6 deficiency,Pituita ry hypofunction,Low iron,Other iron deficiency anemia TAKE 1 TABLET BY MOUTH EVERY OTHER DAY 45 Tablet 7 12/06/19 23 Active hydrocortisone 0.5 % Top Cream APPLY DAILY TO RASH NEEDED 28.4 g 12/27/19 23 Active DULoxetine (CYMBALTA) 20 mg Oral Capsule, Delayed Release(E.C.) Take 20 mg by mouth 2 times daily. 01/21/20 23 Active ESTARYLLA 0.25-35 mg-mcg Oral Tablet Take 1 Tablet by mouth daily. 12/08/19 23 Active albuterol (PROVENTIL HFA;VENTOLIN HFA) 90 mcg/actuation Inhl HFA Aerosol InhalerIndications :Acute viral bronchitis Inhale 2 Puffs into the lungs every 4 hours as needed. 1 Each 04/06/19 24 Active leucovorin (WELLCOVORIN) 5 mg Oral Tablet Take 8-12 hours after you methotrexate 5 Tablet 3 09/03/19 24 Active losartan-hydrochlo rothiazide (HYZAAR) 100-12.5 mg Oral Tablet Take 1 Tablet by mouth daily. 09/26/19 24 Active nebivoloL (BYSTOLIC) 10 mg Oral Tablet Take 10 mg by mouth daily. 10/21/19 24 Active KLOR-CON M20 20 mEq Oral Tab Sust.Rel. Particle/Crystal Take 20 mEq by mouth 2 times daily. 11/18/19 24 Active anifrolumab-fnia (SAPHNELO IV) Inject into the vein every 28 days. Active Insulin Syringe-Needle U-100 (BD INSULIN SYRINGE) 1 mL 27 gauge x 1/2 Misc SyringeIndications :Systemic lupus erythematosus, unspecified SLE type, unspecified organ involvement status (HCC),Encounter for long-term (current) use of high-risk medication To to used with Methotrexate prescription. To take 0.6ml (15mg) SC weekly 25 Each 2 04/15/19 25 Active cyanocobalamin 1,000 mcg/mL Inj SolutionIndication s:B12 deficiency Inject 1 mL into the muscle every 14 days. 6 mL 1 07/16/19 25 Active LEVOthyroxine (SYNTHROID) 150 mcg Oral TabletIndications: Secondary hypothyroidism TAKE 1 TABLET BY MOUTH EVERY DAY 30 Tablet 08/12/19 25 Active folic acid (FOLVITE) 1 mg Oral Tablet TAKE 1 TABLET BY MOUTH EVERY DAY 90 Tablet 08/21/19 25 Active predniSONE (DELTASONE) 10 mg Oral TabletIndications: Primary osteoarthritis of right knee,Primary osteoarthritis of left knee Take 3 tablets daily x 5 days then 2 tablets daily x 5 days then 1 tablet daily x 5 days then stop. 30 Tablet 09/25/19 25 Active Additional Information Patient not taking.Reason: Therapy Completed, Reported on 10/22/2024 omeprazole (PRILOSEC) 20 mg Oral Capsule, Delayed Release(E.C.) Take 1 Capsule by mouth daily. 90 Capsule 09/25/19 25 Active leflunomide (ARAVA) 10 mg Oral Tablet Take 1 Tablet by mouth daily. 30 Tablet 2 10/23/19 25 Active methotrexate sodium, PF, 25 mg/mL Inj SolutionIndication s:Systemic lupus erythematosus, unspecified SLE type, unspecified organ involvement status (HCC),Encounter for long-term (current) use of high-risk medication Subcutaneous (Inject under the skin) 1 mL once a week. 8 mL 04/15/19 25 025 Discontin ued(Dipak ho by ) Active Problems Problem Noted Date Diagnosed Date [...] medication 08/13/2022 Systemic lupus erythematosus 01/08/2022 Overview (10/22/2024): -Last Visit; 07/16/24 # Rheumatoid arthritis with [...] at the time/ mouth ulcers; -synthroid improved hair loss, [...] and teratogenicity effects of which may be present for as long as 2 years from discontinuation [...] psychosis, insomnia, avascular necrosis and weight gain Other microscopic hematuria 01/08/2022 Hair loss 11/04/2015 Vitamin D deficiency 11/04/2015 Vitamin B6 deficiency 11/04/2015 Secondary hypothyroidism 11/04/2015 Rheumatoid arthritis 06/22/2013 Migraines 12/27/2009 Depression 12/27/2009 SVT (supraventricular tachycardia) Overview (11/26/2023): [address] Mak. Assessment & [...] Encounters Date Type Department Care Team Description 10/27/2024 1:45 PM EDT Office Visit [facility] [address] [place] [address] Encounter for long-term (current) use of high-risk medication (Primary Dx); Systemic lupus erythematosus, unspecified SLE type, unspecified organ involvement status (HCC) 10/22/2024 3:30 PM EDT Office Visit [facility] [address] [place] [address] Selena Gray MD Systemic lupus erythematosus, unspecified SLE type, unspecified organ involvement status (HCC) (Primary Dx); Encounter for long-term (current) use of high-risk medication; Vitamin D deficiency; Postmenopausal osteoporosis; Immunosuppressed status; Swelling of both wrists; Hair loss 10/06/2024 Orders Only [facility] [address] [place] [address] Selena Gray MD 10/06/2024 Orders Only [facility] [address] [address] Selena Gray MD 10/05/2024 Orders Only [facility] [address] [place] [address] Selena Gray MD 09/29/2024 3:00 PM EDT Office Visit [facility] [address] [place] [address] Encounter for long-term (current) use of high-risk medication (Primary Dx); Systemic lupus erythematosus, unspecified SLE type, unspecified organ involvement status (HCC) 09/23/2024 Refill [facility] [address] [place] [address] Selena Gray MD Medication Refill 09/16/2024 Refill [facility] [address] [place] [address] Tayla Lam MD Medication Refill 09/10/2024 Refill [facility] [address] [place] [address] Selena Gray MD Medication Refill 09/01/2024 3:15 PM EDT [facility] [address] [place] [address] Encounter for long-term (current) use of high-risk medication (Primary Dx); Systemic lupus erythematosus, unspecified SLE type, unspecified organ involvement status (HCC) 08/24/2024 Refill [facility] [address] [place] [address] Selena Gray MD Medication Refill 08/18/2024 Refill [facility] [address] [place] [address] Selena Gray MD Medication Refill from Last [...] on file Sexual Orientation Not on file Last Filed Vital Signs Vital Sign Reading Time Taken Comments Blood Pressure 110/60 10/27/2024 2:13 PM EDT Pulse 83 10/27/2024 2:13 PM EDT Temperature 36.1 C (97 F) 10/27/2024 1:54 PM EDT Respiratory Rate 20 10/27/2024 2:13 PM EDT Oxygen Saturation 98% 10/27/2024 2:13 PM EDT Inhaled Oxygen Concentration - - Weight 85.3 kg (188 lb) 10/22/2024 3:27 PM EDT Height 170.2 cm (5' 7 ) 10/22/2024 3:27 PM EDT Body Mass Index 29.44 10/22/2024 3:27 PM EDT Plan of Treatment Upcoming Encounters Date Type Department Care Team (Late st Contact Info) Description 11/25/2024 7:30 AM EDT Appointment [facility] [address] [phone] Selena Gray MD [address] [place] [address] 11/25/2024 9:00 AM EDT Office Visit [facility] [address] [place] [address] Lyle Salgado MD [facility] [place] [address] 11/25/2024 10:45 AM EDT Office Visit [facility] [address] [place] [address] 12/22/2024 2:45 PM EST [facility] [address] [place] [address] Selena Gray MD [address] [place] [address] 12/23/2024 3:00 PM EST Office Visit [facility] [address] [place] [address] Health Maintenance Due Date Last Done Comments Hepatitis B Vaccine (1 of 3 - 19+ 3-dose series) 04/22/1991 Pneumococcal Vaccine 50+ (1 of 2 - PCV) 04/22/1991 HPV/Pap Cotest 2002 DTaP/TDaP/Td (1 - Tdap) 01/25/2010 01/24/2010 Annual Wellness Exam 06/09/2015 06/08/2014 (Postpone d) Cervical Cancer Screening 10/07/2015 Pap Smear 10/07/2015 10/06/2012, 01/24/2010 Cologuard 2017 FIT 2017 Sigmoidoscopy 2017 Virtual Colonography 2017 Zoster (2 of 2) 11/21/2023 09/26/2023, 09/03/2023 Breast Cancer Screening 05/24/2024 05/25/19 23, 10/09/2013, 10/08/2012, Additional history exists COVID-19 Vaccine ( season) 2024 09/07/2021, 10/10/2020, 06/01/2020, Additional history exists Influenza Vaccine (#1) 2024 [...] 110/60(2024 2:13 PM EDT) No Marybel Singh, RMKelly Maintain a healthy diet, exercise regularly and maintain an ideal body weight General No Christina Newton, BRYCE Stay Tobacco Free Lifestyle No Christina Newton APRN Procedures Procedure Name Priority Date/Time Associated Diagnosis Comments VITAMIN D 25 HYDROXY-QUEST Routine 10/22/2024 4:08 PM EDT C REACTIVE PROTEIN-QUEST Routine 10/22/2024 4:08 PM EDT Encounter for long-term (current) use of high-risk medication SEDIMENTATION RATE AUTOMATED-QUEST Routine 10/22/2024 4:08 PM [...] [facility] EGD-COLONOSCOPY Routine 12/14/2015 7:20 AM EDT [facility] REPORT Routine 10/06/2012 1 2:00 AM EDT from Last 3 Months or Most Recently Relevant to Health Maintenance Results * VITAMIN D 25 HYDROXY-QUEST (10/22/2024 4:08 PM EDT) VIT D 25 OH 63 30 - 100 ng/mL [facility] Comment: Vitamin D Status 25-OH Vitamin D: Deficiency: <20 ng/mL Insufficiency: 20 - 29 ng/mL Optimal: > or = 30 ng/mL For 25-OH Vitamin D testing on patients on D2-supplementation and patients for whom quantitation of D2 and D3 fractions is required, the QuestAssureD(TM) 25-OH VIT D, (D2,D3), LC/MS/MS is recommended: order code 24300 (patients >2yrs). See Note 1 Note 1 For additional information, please refer to http://education.Packetmotion/faq/EYA216 (This link is being provided for informational/ educational purposes only.) 10/22/2024 4:08 PM EDT 10/22/2024 4:09 PM EDT Selena Gray MD [facility]MISTRY ORDERABLES Final Result Performing Organization Address City/[facility] Co de Phone Number [facility] [address] [place] [address] * SEDIMENTATION RATE AUTOMATED-QUEST (10/22/2024 4:08 PM EDT) Sed Rate 9 < OR = 30 mm/h [facility] 10/22/2024 4:08 PM EDT 10/22/2024 4:09 PM EDT Selena Gray MD [facility]-HEMATOLOGY ORDERABLES Yuyl l Result Performing Organization Address [facility] Co de Phone Number [facility] [address] [place] [address] * C REACTIVE PROTEIN-QUEST (10/22/2024 4:08 PM EDT) CRP 4.6 <8.0 mg/L [facility] 10/22/2024 4:08 PM EDT 10/22/2024 4:09 PM EDT Selena Gray MD [facility]-CHEMISTRY ORDERABLES Final Result Performing Organization Address City/[facility]/ZIP Co de Phone Number [facility] [address] [place] [address] * COMPREHENSIVE METABOLIC PANEL-QUEST (10/22/2024 4:08 PM EDT) [facility] Glucose 87 65 - 99 mg/dL [facility] Comment: Fasting reference interval BUN 16 7 - 25 mg/dL [facility] Creatinine 0.90 0.50 - 1.03 mg/dL [facility] EGFR 77 > OR = 60 mL/min/1.7 3m2 [facility] BUN/Creatinine Ratio SEE NOTE: 6 - (calc) [facility] Comment: Not Reported: [...] MD [facility]-CHEMISTRY ORDERABLES Final Result [facility] [address] [place] [address] * (ABNORMAL) CBC WITH AUTO DIFF-QUEST (10/22/2024 [...] [facility]-HEMATOLOGY ORDERABLES Yuly l Result [facility] [address] [place] [address] * MM MAMMO DIGITAL SVETLANA SCREEN BILAT (05/24/2022 8:06 AM EDT) Anatomical Region Laterality Modality Breast Bilateral Mammography 05/24/2022 8:56 AM EDT Impressions 05/24/2022 8:56 AM EDT Negative ([id number]) ~ RECOMMENDATION: Routine screening mammogram in 1 [...] the next mammogram, in accordance with the [employer] and the Society of Breast Imaging recommendations. Narrative 05/24/2022 8:56 AM EDT Procedure:MM MAMMO DIGITAL SVETLANA SCREEN BILAT ~ Reason for exam: screening, asymptomatic. Z12.31-Encounter for screening mammogram for malignant neoplasm of [id number] ~ MM MAMMO DIGITAL SVETLANA SCREEN BILAT [...] for screening mammogram for malignant neoplasm of [id number] ~ MM MAMMO DIGITAL SVETLANA SCREEN BILAT Bilateral CC and MLO view(s) were taken. There are scattered fibroglandular densities. Prior study comparison: Compared with prior studies the most recentbeing 10/09/13, 10/08/12 No mammographic evidence of malignancy. ~ IMPRESSION: Negative ([id number]) ~ RECOMMENDATION: Routine screening mammogram in 1 [...] the next mammogram, in accordance with the [employer] and the Society of Breast Imaging recommendations. Maria G Laurent APRN IM MAMMOGRAPHY ORDERABLES Fin al Result * [facility] EGD-COLONOSCOPY (12/14/2015 7:20 AM EDT) 12/14/2015 7:20 AM EDT Narrative [facility] - 12/14/2015 7:20 AM EDT [facility] [place] [address] EGD-Colonoscopy Report Date: 12/14/2015 7:20 AM Patient Name: LUCILLE RICO Endoscopist(s): Brian Chisholm MD Gender: Female (age): 1970 (45) Referring Physician: Shawn Ramirez MD [address] [place] [address] (phone) (fax) Anesthesia Provider: Roge Mast CRNA (Nurse pecan picker) Nurse(s): Galina العلي, GASPER (Pre-Procedure) Rose Hopper, RN, BSN (Intra-Procedure) Jeana Sam, RN, BSN (Post-Procedure) EGD Instrument(s): E-#8([id number]) Colonoscopy Instrument(s): C-5([id number]) ASA Class: P2 - 12/14/2015 6:56 AM [...] with IV sedation was administered by nurse pecan picker/ anesthesiologist. Continuous pulse oximetry, heart rate and [...] Chisholm MD GI PROCEDURE ORDERABLES Final Result [facility] [address] [place] [address], [place] [address], [facility] [phone] * [facility] REPORT (10/06/2012 12:00 AM EDT) Negative Spotter Cytology Report PATIENT NAME:ISREAL ARANGO Negative Spotter Cytology Report Accession Number Collected Date/Time Received Date/Time [id number] 10/06/12 00:00 EDT 10/07/12 05:01 EDT GY [...] confirmed before definitive therapy. Processed using the HantelePrep Automatic Nailing Machine Operator automated cytology screening device (Cliqset). Er Tech: KEZIA REYNOSO 10/09/2012 Completed by: TIFFANY Lopez (Electronically signed by) 10/09/2012 [facility] 10/06/2012 us Anuradha Watkins MD PATHOLOGY ORDERABLES Final R esult Performing Organization Address City/State/[facility] Co de Phone Number [facility] [address] [place] [address] from Last 3 Months or Most Recently Relevant to Health Maintenance Insurance Care Teams Egg Crater Relationship Specialty Start Date End Date Maria G Laurent APRN [address] [facility] [address] [place] [address] PCP - General Nurse Practitioner 08/20/19 Jonah Eng MD [address] [facility] [address] [place] [address] Physician Psychiatry & Neurology-Clinical Neurophysiology 09/16/13 Jaren Duran MD [address] [place] [address] Internal Medicine-Cardiovascular Disease 04/22/14 Selena Gray MD [address] [place] [id number] Internal Medicine-Rheumatology 04/30/22
== END 2024-11-17 23:59 | disposition home or self-care (01) ==
LOC: LAB.DROPOF 22:58
PROVIDERS: PCP Nurse Practitioner; Visit Provider Nurse Practitioner
DX: E03.9 Hypothyroidism, unspecified (principal); I10 Essential (primary) hypertension
CPT/HCPCS: 80053; 84439; 84443